=== PATIENT | male | born 1965 | race Caucasian/White ===

== ENCOUNTER 2019-12-28 20:27 | Observation (INO) | payer BC, MEDICAID, SELFPAY ==
--- NOTE | ~2019-12-28 | XR_ITS ---
EXAMINATION: XR abdomen/kub 1V INDICATION: Ureterovesicular junction stone. TECHNIQUE: Supine views of the abdomen were obtained on 2 radiographs. COMPARISON: CT from today FINDINGS: There is a subtle 8 mm calcification projecting in the left pelvis corresponding to the lef t ureterovesicular junction stone identified on CT. Phleboliths are noted in the right pelvis. The yevgeniy wel gas pattern is normal. IMPRESSION: 1. Subtle left pelvic calcification corresponding to the ureterovesicular junction stone identified o n CT. Reviewed, dictated and finalized at location A. IMPRESSION: 1. Subtle left pelvic calcification corresponding to the ureterovesicular junct ion stone identified on CT.
--- NOTE | ~2019-12-28 | CT_ITS ---
EXAMINATION: CT abdomen pelvis wo con DATE: 12/28/2019 21:06 INDICATION: Flank pain TECHNIQUE: Computed tomography (CT) of the abdomen and pelvis was performed without intravenous contr ast. The dose-length product (DLP) was 253.70 mGy-cm. Automated exposure control and iterative recons truction technique were employed. COMPARISON: 09/18/2019, 08/22/2015 FINDINGS: Minimal dependent atelectasis is present in the lung bases. The heart size is normal. The l iver, spleen, pancreas, gallbladder, and adrenal glands are normal. There is an 8 mm stone at the lef t ureterovesicular junction which causes moderate left hydroureteronephrosis. A stable 1.1 cm isodens e right kidney lesion is considered benign. No pathologically enlarged abdominal or pelvic lymph node s are identified. There is no free intraperitoneal gas or evidence of bowel obstruction. There is a f at-containing umbilical hernia. The appendix is normal. Colonic diverticulosis is present without mandie dence of diverticulitis. There is moderate lumbar spondylosis. IMPRESSION: 1. 8 mm stone at the left ureterovesicular junction causing moderate left hydroureteronephrosis. Cons ider KUB for treatment planning purposes. Reviewed, dictated and finalized at location A. IMPRESSION: 1. 8 mm stone at the left ureterovesicular junction causing moderate left hydro ureteronephrosis. Consider KUB for treatment planning purposes.
[2019-12-28 20:29] VITALS: BP 129/87; PULSE 100; RESP 16; TEMP 36.3; O2SAT 100
--- NOTE | 2019-12-28 20:43 | ED.ABDPAIN ---
HPI - Abdominal Pain General Chief Complaint: Abdominal Pain Stated Complaint: kidney stone Time Seen by Provider: 12/28/19 20:36 Source: patient and RN notes reviewed Mode of arrival: other Limitations: no limitations History of Present Illness HPI narrative: Pt is a 54 y/o male who presents to the ED with c/o lower abdominal pain that began a few days ago. Pt notes that he has a 6 mm left kidney stone and was supposed to have surgery on 12/23/19, but he had some insurance issues so he was unable to have the procedure. He notes that kidney stone is about to drop. Pt states that he has been drinking plenty of water. Pt also reports a cough, chest congestion, urinary urgency, urinary retention, and dysuria, but denies a fever, chills, sore throat, and nasal drainage. Pt denies any recent foreign travel and being around anyone with COVID. MD elicited complaint: abdominal pain Pertinent past history: kidney stones Onset (ago): day(s) Pain Consistency: constant Location: other (lower abdomen) Associated symptoms: dysuria and other (urinary retention, urinary urgency, cough, chest congestion) Related Data Home Medications Medication Instructions Recorded Confirmed buspirone 15 mg tablet 15 mg PO DAILY 09/14/19 12/28/19 trazodone 150 mg tablet 150 mg PO HS 09/14/19 12/28/19 venlafaxine 150 mg 150 mg PO DAILY 09/14/19 12/28/19 capsule,extended release 24 hr venlafaxine 75 mg capsule,extended 75 mg PO DAILY 09/14/19 12/28/19 release 24 hr lansoprazole 15 mg PO DAILY 12/28/19 12/28/19 risperidone 0.25 mg PO BID 12/28/19 12/28/19 Allergies Allergy/AdvReac Type Severity Reaction Status Date / Time No Known Allergies Allergy Verified 12/28/19 20:43 Review of Systems Review of Systems: All systems reviewed & are unremarkable except as noted in HPI and below Constitutional: Constitutional: Denies chills and Denies fever(s) ENT: Denies nasal discharge and Denies sore throat Respiratory: Respiratory: Reports chest congestion and Reports cough Gastrointestinal: Gastrointestinal: Reports abdominal pain (lower) Genitourinary: Genitourinary: Reports dysuria, Reports urinary urgency and Reports other (urinary retention) [facility] Past Medical History Medical History (Updated 12/28/19 @ 22:53 by David Lopez MD) Anxiety Arthritis Depression GERD (gastroesophageal reflux disease) Hepatic steatosis Hyperlipidemia Left renal stone Left ureteral stone Right kidney mass Umbilical hernia without obstruction and without gangrene Surgical History Surgical History (Updated 12/28/19 @ 21:15 by Chantal Haas) H/O umbilical hernia repair History of eye surgery to remove metal in eye History of orthopedic surgery to remove pin out of left 1st digit Social History Social History (Updated 12/28/19 @ 21:12 by Chantal Haas) Smoking status: Never smoker Alcohol intake: current Substance use: current Substance use type: marijuana Other substance usage details: occasional Last use: 2 weeks ago 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oncerns: Yes (Pentecostal) Agree to blood products: Yes Exam Const: General: healthy appearing, no acute distress, well developed and alert Orientation/consciousness: patient oriented x3 Limitations: no limitations HENMT: Head: normocephalic and atraumatic Ears: external ears normal General nose exam: Normal external nose present Mouth: Yes oropharynx normal and Yes moist mucous membranes Resp: Effort & Inspection: normal respiratory effort and able to speak in complete sentences Auscultation: clear to auscultation bilaterally Cardio: Rate: regular rate Rhythm: regular rhythm Peripheral pulses: radial pulses present and popliteal pulses present GI: GI Palp: Yes Soft to palpation, No Tenderness to palpation present (GI) and No Guarding due to palpation present (GI) Skin: G
[2019-12-28 21:07] LABS: Basophils Absolute Auto 0.1 K/mm3 (0.0-0.1); Basophils Percent Auto 0.8 % (0.2-1.2); Eosinophils Absolute Auto 0.1 K/mm3 (0-0.3); Eosinophils Percent Auto 0.9 % (0-4.4); Hematocrit 44.7 % (42.0-52.0); Hemoglobin 15.2 g/dL (14.0-18.0); Immature Granulocyte Absolute 0.04 K/mm3 (0.00-0.031); Immature Granulocyte Percent A 0.4 % (0-0.5); Lymphocytes Absolute Auto 3.77 K/mm3 (0.9-3.2); Mean Corpuscular Hemoglobin 30.5 pg (26-34); Mean Corpuscular Volume 89.6 fl (80-100); Mean Platelet Volume 8.3 fl (7.4-10.4); Monocytes Absolute Auto 0.7 K/mm3 (0.1-0.6); Monocytes Percent Auto 6.5 % (2.6-8.5); Neutrophils Absolute Auto 5.6 K/mm3 (1.3-6.7); Neutrophils Percent Auto 54.4 % (45.5-73.1); Platelet Count Result 331 k/mm3 (150-375); Red Blood Count 4.99 M/mm3 (4.6-6.20); Red Cell Distribution Width 12.6 % (11.5-14.5); White Blood Count 10.2 K/mm3 (4.5-10.0)
[2019-12-28 21:13] LABS: Add Urine Microscopic? YES; Appearance Urine Clear (Clear); Bacteria Urine Trace /hpf; Bilirubin Urine Negative (Negative); Blood Urine 2+ (Negative); Color Urine Yellow (Yellow); Glucose Urine UA Negative (Negative); Hyaline Casts Urine 20-29 /lpf; Ketones Urine Negative (Negative); Leukocyte Esterase Ur Trace LEU/UL (Negative); Mucus Urine Few /lpf; Nitrate Urine Negative (Negative); Protein Urine 2+ mg/dL (Negative); RBC Urine >75 /hpf (0-2); Specific Grav Ur 1.028 (1.001-1.035); Squamous Epithelial Cell Urine Many /hpf (Few); WBC Urine 16-20 /hpf
[2019-12-28 21:18] LABS: Blood Urea Nitrogen 23 mg/dL (9-20); Calcium 9.2 mg/dL (8.4-10.2); Carbon Dioxide 27 mmol/L (22-30); Chloride 101 mmol/L (98-107); Estimated Glomerular Filt Rate > 60; Glucose 116 mg/dL (75-110); Potassium 3.9 mmol/L (3.4-5.0); Sodium 137 mmol/L (137-145)
[2019-12-28 21:41] VITALS: BP 114/76; PULSE 95; RESP 16; TEMP 36.7; O2SAT 97
[2019-12-28] MEDS: TAMSULOSIN HCL 0.4 MG CAPSULE PO (22:13)
[2019-12-28] MEDS: KETOROLAC 30 MG/ML VIAL (*BKC) IV PUSH (22:13)
[2019-12-28 22:41] VITALS: BP 120/88; PULSE 90; RESP 16; O2SAT 100
[2019-12-28 22:55] VITALS: BMI 27.5
[2019-12-28 23:05] VITALS: BP 116/66; PULSE 90; RESP 18; TEMP 36.4; O2SAT 95; BMI 27.8
--- NOTE | 2019-12-28 23:16 | ADMGEN ---
This patient, Ketan Pena, was admitted to [facility] Surg Room 312-01. Patient/family oriented to hospital policies and general routines including ID bracelet, bed and alarms, visiting hours, pain management, procedures, bathroom and other care routines, personal items, smoking policy, room service/diet, and visiting hours. Valuables list has been completed. Information on how to activate the Rapid Response Team has been discussed. Patient/Family are encouraged to report perceived risks to care and to ask questions if they do not understand what they are told or what they should do.
[2019-12-29] MEDS: SODIUM CHLORIDE 0.9% IV 1,000 ML 125 ML IV CONT
[2019-12-29 06:00] VITALS: BP 112/61; PULSE 80; RESP 18; TEMP 36.1; O2SAT 97
[2019-12-29 08:00] VITALS: PULSE 80; RESP 18; O2SAT 97
--- NOTE | 2019-12-29 15:01 | HP_ITS ---
DATE OF SERVICE: 12/29/2019 REASON FOR CONSULTATION: Ureteral stone. Physician requesting consultation is Dr. Lopez in the emergency department. HISTORY OF PRESENT ILLNESS: The patient is a very pleasant gentleman, he was found to have an 8 mm ureteral stone 3 weeks ago. He was scheduled for surgery last week; however, due to insurance difficulties was cancelled. The patient presented to the emergency department last night with worsening pain. The patient had CT scan that showed migration of the stone to the distal ureter. The patient was admitted to the hospital, given IV fluids and tamsulosin. The patient subsequently passed the stone early this morning. The patient currently is feeling well. He denies nausea, vomiting, fevers, chills, chest pain, shortness of breath. PAST MEDICAL HISTORY: Anxiety, arthritis, depression, fatty liver, GERD, hyperlipidemia, nephrolithiasis. PAST SURGICAL HISTORY: Umbilical hernia repair, eye surgery, and orthopedic surgery. SOCIAL HISTORY: The patient does smoke marijuana and drink alcohol. He denies tobacco use. REVIEW OF SYSTEMS: Negative as mentioned in the HPI. ALLERGIES: NO KNOWN DRUG ALLERGIES. CURRENT MEDICATIONS: 1. Buspirone. 2. Trazodone. 3. Venlafaxine. 4. . 5. Risperidone. PHYSICAL EXAMINATION: VITAL SIGNS: Within normal limits. GENERAL: The patient is awake, alert, oriented, in no acute distress. RESPIRATORY: Unlabored. ABDOMEN: Soft, nontender, nondistended. BACK: Shows no CVA tenderness. EXTREMITIES: No edema. LABORATORY DATA: Showed white blood cell count of 10, hematocrit of 44, creatinine of 1.1. Urinalysis was positive for red blood cells. No significant findings. CT scan, I reviewed the patient's imaging report. The patient has an 8 mm stone at the left ureterovesical junction with moderate hydroureteronephrosis. ASSESSMENT: The patient is a very pleasant 54-year-old gentleman who was admitted with pain due to a distal ureteral stone, which he subsequently passed last night. PLAN: 1. The patient will be discharged home today as he passed the stone. The stone to be sent for analysis. 2. The patient should continue fluid hydration to prevent stone disease. 3. The patient is to follow up in the office in approximately 1 month. He should have a renal ultrasound and a KUB for followup imaging prior to the appointment. D I MT: Marie
== END 2019-12-29 11:20 | disposition home or self-care (01) ==
LOC: ANHED 21:58 → ANH3MEDSUR 22:42
PROVIDERS: Admitting Provider Urology; Emergency Provider Emergency Medicine; PCP Emergency Medicine; Visit Provider Urology
DX: N20.1 Calculus of ureter (principal); R05 Cough; E78.5 Hyperlipidemia, unspecified; K21.9 Gastro-esophageal reflux disease without esophagitis; F32.9 Major depressive disorder, single episode, unspecified; F41.9 Anxiety disorder, unspecified; M19.90 Unspecified osteoarthritis, unspecified site; K76.0 Fatty (change of) liver, not elsewhere classified; Z87.442 Personal history of urinary calculi
CPT/HCPCS: 36415; 74018; 74176; 80048; 81001; 82365; 85025; 87086; 88300; 96374; 99285; A9270; G0378; G0379; J1885; J7030

== ENCOUNTER 2020-10-15 19:32 | Emergency (ER) | payer OTHER, SELFPAY ==
--- NOTE | ~2020-10-15 | CT_ITS ---
EXAMINATION: CT abdomen pelvis wo con DATE: 10/15/2020 20:06 INDICATION: Right flank pain TECHNIQUE: Computed tomography (CT) of the abdomen and pelvis was performed without intravenous contr ast. The dose-length product (DLP) was 742.48 mGy-cm. Automated exposure control and iterative recons truction technique were employed. COMPARISON: 12/28/2019 FINDINGS: Minimal dependent atelectasis is present in the lung bases. The heart size is normal. The l iver, spleen, pancreas, gallbladder, and adrenal glands are normal. There are punctate nonobstructing stones of the kidneys. No stones are present in the ureters or bladder. There is no hydronephrosis o r hydroureter. Colonic diverticulosis is noted. There is mild wall thickening at the hepatic flexure of the colon with edematous stranding of the adjacent pericolic fat. There is no free intraperitoneal gas or evidence of bowel obstruction. No pathologically enlarged abdominal or pelvic lymph nodes are identified. The appendix is normal. There is a small fat-containing umbilical hernia. There is sever e spondylosis at L5-S1. IMPRESSION: 1. Acute, uncomplicated diverticulitis at the hepatic flexure of colon. Reviewed, dictated and finalized at location A. [facility] [employer]
[2020-10-15 19:40] VITALS: BP 152/96; PULSE 82; RESP 18; TEMP 36.6; O2SAT 98
[2020-10-15] MEDS: SODIUM CHLORIDE 0.9% IV 1,000 ML 999 ML IV CONT (20:10)
[2020-10-15] MEDS: KETOROLAC 30 MG/ML VIAL (*BKC) IV PUSH (20:11)
[2020-10-15 20:21] LABS: Basophils Absolute Auto 0.08 K/mm3 (0.00-0.10); Basophils Percent Auto 1.2 % (0.0-1.0); Eosinophils Percent Auto 2.9 % (1.0-6.0); Hematocrit 38.2 % (40.0-54.0); Hemoglobin 13.2 g/dL (14.0-18.0); Immature Granulocyte Absolute 0.03 K/mm3 (0.00-0.00); Immature Granulocyte Percent A 0.4 % (0.0-0.0); Lymphocytes Absolute Auto 2.94 K/mm3 (1.10-4.50); Lymphocytes Percent Auto 43.2 % (18.0-42.0); Mean Corpuscular HGB Conc 34.6 g/dL (32.0-36.0); Mean Corpuscular Hemoglobin 31.4 pg (27.0-31.0); Mean Platelet Volume 8.1 fl (8.7-11.0); Monocytes Absolute Auto 0.51 K/mm3 (0.10-0.90); Monocytes Percent Auto 7.5 % (2.0-11.0); Neutrophils Absolute Auto 3.1 K/mm3 (1.7-7.2); Neutrophils Percent Auto 44.8 % (50.0-70.0); Platelet Count Result 275 K/mm3 (150-420); White Blood Count 6.8 K/mm3 (4.8-10.8)
[2020-10-15 20:22] LABS: Add Urine Microscopic? NO; Appearance Urine Clear (Clear); Bilirubin Urine Negative (Negative); Blood Urine Negative (Negative); Color Urine Yellow (Yellow); Glucose Urine UA Negative (Negative); Ketones Urine Negative (Negative); Leukocyte Esterase Ur Negative LEU/UL (Negative); Nitrate Urine Negative (Negative); Protein Urine Negative (Negative); Specific Grav Ur 1.015 (1.010-1.020); Urobilinogen Urine 0.2 mg/dL (0.2-1.0)
[2020-10-15 20:36] LABS: INR 0.9; Partial Thromboplastin Time 23.3 SEC (23.90-30.70); Prothrombin Time 10.3 Seconds (9.50-12.10)
[2020-10-15 20:38] LABS: Alanine Aminotransferase 42 U/L (16-63); Albumin Level 3.6 g/dL (3.4-5.0); Alkaline Phosphatase 61 U/L (46-116); Anion Gap 11 mmol/L (8-16); Aspartate Amino Transferase 22 U/L (15-37); Bilirubin,Total 0.2 mg/dL (0.00-1.00); Blood Urea Nitrogen 10 mg/dL (7-18); Calcium 8.6 mg/dL (8.5-10.1); Carbon Dioxide 25 mmol/L (21-32); Chloride 102 mmol/L (98-108); Estimated CRCL calculation 55 ml/min; Estimated Glomerular Filt Rate 57; Glucose 109 mg/dL (70-99); Lipase 222 U/L (73-393); Osmolality Calculated 286 mOsm/kg (285-295); Potassium 3.6 mmol/L (3.5-5.1); Sodium 138 mmol/L (136-145)
--- NOTE | 2020-10-15 20:46 | ED.GENADULT ---
HPI - General Adult General Chief complaint: Back Pain/Injury Stated complaint: 55 YO male w/ 4 day h/o right mid back pain that started after he worked on his car (Tuneup and bleed brakes). Has a h/o renal calculi and denies trauma or injury. Related Data Home Medications Medication Instructions Recorded Confirmed buspirone 15 mg tablet 30 mg PO BID 09/14/19 10/15/20 trazodone 150 mg tablet 150 mg PO HS 09/14/19 10/15/20 venlafaxine 150 mg 150 mg PO DAILY 09/14/19 10/15/20 capsule,extended release 24 hr venlafaxine 75 mg capsule,extended 75 mg PO DAILY 09/14/19 10/15/20 release 24 hr risperidone 0.5 mg PO BID 12/28/19 10/15/20 Allergies Allergy/AdvReac Type Severity Reaction Status Date / Time No Known Allergies Allergy Verified 12/28/19 20:43 Review of Systems Review of Systems: All systems reviewed & are unremarkable except as noted in HPI and below Constitutional: Constitutional: Reports no additional constitutional complaints Cardiovascular: Cardiovascular: Reports no additional cardiovascular complaints Respiratory: Respiratory: Reports no additional respiratory complaints Gastrointestinal: Gastrointestinal: Reports no additional gastrointestinal complaints Genitourinary: Genitourinary: Reports no additional male genitourinary complaints Musculoskeletal: Musculoskeletal: Reports back pain Integumentary/Breasts: Skin/Breast: Reports system reviewed and no additional complaints, except as docu Neurologic: Reports system reviewed and no additional complaints, except as documented Psychiatric: Psychiatric: Reports no additional psychiatric complaints Endocrine: Endocrine: Reports no additional endocrine complaints [facility] Past Medical History Medical History (Updated 10/15/20 @ 20:52 by Junaid Moseley MD) Anxiety Arthritis Depression Diverticulitis large intestine w/o perforation or abscess w/o bleeding Diverticulosis GERD (gastroesophageal reflux disease) Hepatic steatosis Hyperlipidemia Left renal stone Left ureteral stone Right kidney mass Umbilical hernia without obstruction and without gangrene Surgical History Surgical History H/O umbilical hernia repair History of eye surgery to remove metal in eye History of orthopedic surgery to remove pin out of left 1st digit Family History Family History Mother Patient's mother is Father Patient's father is Sibling Patient's sister is in good health Patient's brother is in good health Family history of coronary artery disease Breast cancer Stomach cancer Social History Social History Smoking status: Never smoker Alcohol intake: current Substance use: current Substance use type: marijuana Other substance usage details: occasional Last use: 2 weeks ago 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oncerns: Yes (Zoroastrian) Agree to blood products: Yes Exam Const: General: healthy appearing, no acute distress and alert Orientation/consciousness: patient oriented x3 HENMT: Head: normal to inspection Eyes: Conjunctivae: conjunctivae normal Pupils: Equal, round and reactive pupils present Neck: Neck: normal visual inspection and no lymphadenopathy Chest: Chest palpation & inspection: normal inspection of the chest Resp: Effort & Inspection: normal respiratory effort Auscultation: clear to auscultation bilaterally Cardio: Rate: regular rate Rhythm: regular rhythm GI: Inspection: non-distended GI Palp: Yes Soft to palpation, No Tenderness to palpation present (GI), No Guarding due to palpation present (GI) and No Rigid due to palpation : Testes: Testes normal Back/Spine/Pelvis: Back: CVA tenderness (Right CVA po
[2020-10-15] MEDS: metroNIDAZOLE 250 MG TABLET 500 MG PO (21:07)
[2020-10-15] MEDS: levoFLOXacin TAB 500 MG, levoFLOXacin TAB 250 MG 750 MG PO (21:09)
[2020-10-15 21:11] VITALS: BP 138/82; PULSE 84; RESP 18; O2SAT 98
== END 2020-10-15 21:15 | disposition home or self-care (01) ==
PROVIDERS: Emergency Provider Family Medicine; PCP Emergency Medicine
DX: K57.32 Diverticulitis of large intestine without perforation or abscess without bleeding (principal)
CPT/HCPCS: 36415; 74176; 80053; 81003; 83690; 85025; 85610; 85730; 96361; 96374; 99283; 99284; A9270; J1885; J7030

== ENCOUNTER 2021-01-09 09:09 | Emergency (ER) | payer OTHER, SELFPAY ==
--- NOTE | ~2021-01-09 | CT_ITS ---
EXAMINATION: CT abdomen pelvis wo con EXAM DATE: 01/09/2021 10:02 INDICATION: Abdominal pain LT flank pain x3days, worse today after feeling pop in that area. Hernia s urgery one year ago. TECHNIQUE: Spiral CT of the abdomen and pelvis was performed without contrast. Axial, coronal and s agittal images were reviewed. The dose-length product (DLP) for this examination was 934.64 mGy-cm. The exposure was tailored according to patient size (auto mA exposure control), and iterative recons truction (ASIR) was used as additional dose reduction technique. Comparison is made to prior examinat ion from 10/15/2020. FINDINGS: There is hepatic steatosis without suspicious focal lesion identified. Spleen, adrenal glan ds, pancreas are unremarkable. Gallbladder is unremarkable. No biliary obstruction. There is punct ate right inferior calyceal stone. No ureteral stones or hydronephrosis. The prostate is unremarkabl e. The bladder is unremarkable. There is no retroperitoneal or pelvic lymphadenopathy. Small umbi lical fat-containing hernia. The appendix is normal. There is mild to moderate scattered colonic diverticulosis. There is no calin cent inflammatory change to suggest diverticulitis, previously seen episode has resolved. The stoma ch and small bowel are unremarkable. There is expected amount of colonic stool. No free intraperit bruce gas. Lung bases are clear. There is narrow cardiac silhouette, evidence of hyperinflation. T here are no acute fractures identified. IMPRESSION: 1. No acute intra-abdominal findings. 2. Scattered colonic diverticulosis. 3. Punctate right nephrolithiasis. 4. Small umbilical hernia. 5. Hyperinflation. Reviewed, dictated and finalized at location A.
[2021-01-09 09:15] VITALS: BP 134/83; PULSE 79; RESP 20; TEMP 36.6; O2SAT 97
[2021-01-09 09:36] LABS: Basophils Absolute Auto 0.04 K/mm3 (0.00-0.10); Basophils Percent Auto 0.6 % (0.0-1.0); Eosinophils Absolute Auto 0.18 K/mm3 (0.02-0.50); Eosinophils Percent Auto 2.7 % (1.0-6.0); Hematocrit 42.2 % (40.0-54.0); Hemoglobin 14.5 g/dL (14.0-18.0); Immature Granulocyte Absolute 0.02 K/mm3 (0.00-0.00); Immature Granulocyte Percent A 0.3 % (0.0-0.0); Lymphocytes Absolute Auto 2.33 K/mm3 (1.10-4.50); Lymphocytes Percent Auto 34.9 % (18.0-42.0); Mean Corpuscular HGB Conc 34.4 g/dL (32.0-36.0); Mean Corpuscular Hemoglobin 31.5 pg (27.0-31.0); Mean Corpuscular Volume 91.7 fL (78.0-102.0); Mean Platelet Volume 7.9 fl (8.7-11.0); Monocytes Absolute Auto 0.38 K/mm3 (0.10-0.90); Monocytes Percent Auto 5.7 % (2.0-11.0); Neutrophils Absolute Auto 3.7 K/mm3 (1.7-7.2); Neutrophils Percent Auto 55.8 % (50.0-70.0); Platelet Count Result 230 K/mm3 (150-420); Red Cell Distribution Width 12.7 % (11.6-14.4); White Blood Count 6.7 K/mm3 (4.8-10.8)
[2021-01-09] MEDS: KETOROLAC 30 MG/ML VIAL (*BKC) IV PUSH (09:44)
[2021-01-09 09:47] LABS: Add Urine Microscopic? NO; Appearance Urine Clear (Clear); Bilirubin Urine Negative (Negative); Blood Urine Negative (Negative); Color Urine Yellow (Yellow); Glucose Urine UA Negative (Negative); Ketones Urine Negative (Negative); Leukocyte Esterase Ur Negative LEU/UL (Negative); Nitrate Urine Negative (Negative); Protein Urine Negative (Negative); Urobilinogen Urine 0.2 mg/dL (0.2-1.0); pH Urine 5.5 (5.0-8.0)
--- NOTE | 2021-01-09 09:50 | ED.ABDPAIN ---
HPI - Abdominal Pain General Chief Complaint: Abdominal Pain Stated Complaint: diverticulis Source: patient Limitations: no limitations History of Present Illness HPI narrative: pain has been present for 3 days. Went to chiropracter because he thought it was a pulled muscle. Today when he was getting up off a toliet he felt a pop and pain got much worse. He has no N/V, no d/c, no urinary sxs. Basically he points to area in LUQ and left flank and states this is where the pain is. he feels fine otherwise MD elicited complaint: abdominal pain Pain Consistency: constant Location: LUQ and L flank Severity: moderate Migration to: no migration Exacerbating factors: movement (touch) Relieving factors: nothing Associated symptoms: denies other symptoms Related Data Home Medications Medication Instructions Recorded Confirmed buspirone 15 mg tablet 30 mg PO BID 09/14/19 10/15/20 venlafaxine 150 mg 150 mg PO DAILY 09/14/19 10/15/20 capsule,extended release 24 hr venlafaxine 75 mg capsule,extended 75 mg PO DAILY 09/14/19 10/15/20 release 24 hr risperidone 0.5 mg PO BID 12/28/19 10/15/20 lansoprazole [Prevacid] 30 mg PO DAILY 01/09/21 01/09/21 Allergies Allergy/AdvReac Type Severity Reaction Status Date / Time No Known Allergies Allergy Verified 12/28/19 20:43 Review of Systems Constitutional: Constitutional: Reports no additional constitutional complaints Eyes: Eyes: Reports no additional eye complaints ENT: Reports as per HPI Cardiovascular: Cardiovascular: Reports no additional cardiovascular complaints Respiratory: Respiratory: Reports no additional respiratory complaints Gastrointestinal: Gastrointestinal: Reports abdominal pain, Denies bloating, Denies constipation, Denies heartburn, Denies diarrhea, Denies nausea and Denies vomiting Genitourinary: Genitourinary: Reports no additional male genitourinary complaints Musculoskeletal: Musculoskeletal: Reports no additional musculoskeletal complaints Integumentary/Breasts: Skin/Breast: Reports system reviewed and no additional complaints, except as docu Neurologic: Reports system reviewed and no additional complaints, except as documented Psychiatric: Psychiatric: Reports no additional psychiatric complaints Endocrine: Endocrine: Reports no additional endocrine complaints Hematologic/Lymphatic: Hematologic/Lymphatic: Reports no additional hematologic/lymphatic complaints Allergic/Immunologic: Allergic/Immunologic: Reports no additional allergic/immunologic complaints PMFSH Past Medical History Medical History Anxiety Arthritis Depression Diverticulitis large intestine w/o perforation or abscess w/o bleeding Diverticulosis GERD (gastroesophageal reflux disease) Hepatic steatosis Hyperlipidemia Left renal stone Left ureteral stone Right kidney mass Umbilical hernia without obstruction and without gangrene Surgical History Surgical History H/O umbilical hernia repair History of eye surgery to remove metal in eye History of orthopedic surgery to remove pin out of left 1st digit Family History Family History Mother Patient's mother is Father Patient's father is Sibling Patient's sister is in good health Patient's brother is in good health Family history of coronary artery disease Breast cancer Stomach cancer Social History Social History Smoking status: Never smoker Alcohol intake: current Substance use: current Substance use type: marijuana Other substance usage details: occasional Last use: 2 weeks ago 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
[2021-01-09 09:52] LABS: Alanine Aminotransferase 47 U/L (16-63); Albumin Level 3.7 g/dL (3.4-5.0); Alkaline Phosphatase 80 U/L (46-116); Anion Gap 9 mmol/L (8-16); Aspartate Amino Transferase 29 U/L (15-37); Bilirubin,Total 0.3 mg/dL (0.00-1.00); Blood Urea Nitrogen 7 mg/dL (7-18); Calcium 8.7 mg/dL (8.5-10.1); Carbon Dioxide 30 mmol/L (21-32); Chloride 102 mmol/L (98-108); Estimated Glomerular Filt Rate > 60; Glucose 113 mg/dL (70-99); Lipase 129 U/L (73-393); Osmolality Calculated 291 mOsm/kg (285-295); Potassium 4.2 mmol/L (3.5-5.1); Sodium 141 mmol/L (136-145); Total Protein 7.3 g/dL (6.4-8.2)
[2021-01-09 09:58] LABS: Lactic Acid Reflex 1.6 mmol/L (0.4-2.0)
[2021-01-09 10:39] VITALS: RESP 16
== END 2021-01-09 10:40 | disposition home or self-care (01) ==
PROVIDERS: Emergency Provider Emergency Medicine; PCP Emergency Medicine
DX: S39.011A Strain of muscle, fascia and tendon of abdomen, initial encounter (principal)
CPT/HCPCS: 36415; 74176; 80053; 81003; 83605; 83690; 85025; 96374; 99283; 99284; J1885

== ENCOUNTER 2021-03-10 02:35 | Emergency (ER) | payer OTHER, SELFPAY ==
--- NOTE | ~2021-03-10 | XR_ITS ---
EXAMINATION: XR chest 2V DATE: 03/10/2021 03:20 INDICATION: Chest pain. Palpitations. TECHNIQUE: Frontal and lateral views of the chest were obtained on 3 radiographs. COMPARISON: Chest 2 views 07/25/2016, chest CT 03/10/2021 FINDINGS: The chest demonstrates clear lungs without pneumonia, pleural effusion, or pneumothorax. Th e heart size is normal. IMPRESSION: 1. No acute cardiopulmonary disease. Reviewed, dictated and finalized at location A.
--- NOTE | ~2021-03-10 | CT_ITS ---
EXAMINATION: CTA chest PE protocol DATE: 03/10/2021 04:03 INDICATION: Chest pain. TECHNIQUE: Computed tomography angiography (CTA) of the chest was performed with 100 mL Omnipaque-350 intravenous contrast timed to evaluate the pulmonary arteries. Coronal maximum intensity projection 3D-reconstructions were created by the technologist. Automated exposure control and iterative reconst ruction technique were employed. The dose-length product was 508.64 mGy-cm. COMPARISON: CT abdomen and pelvis 01/09/2021 FINDINGS: There is mild dependent atelectasis. No pleural effusion. The heart size is normal. No samira cardial effusion. There is no pulmonary embolus. There is diffuse hepatic steatosis. There is a small sliding hiatal hernia. There is moderate thoracic spondylosis. IMPRESSION: 1. No pulmonary embolus. 2. Small sliding hiatal hernia. 3. Diffuse hepatic steatosis. Reviewed, dictated and finalized at location A.
[2021-03-10 02:35] VITALS: BP 136/89; PULSE 74; RESP 18; TEMP 36.4; O2SAT 100
--- NOTE | 2021-03-10 02:45 | ED.ARRPALP ---
HPI - Arrhythmia/Palpitations General Chief Complaint: Arrhythmia/Palpitations Stated Complaint: heart palp Time Seen by Provider: 03/10/21 02:45 Source: patient Mode of arrival: ambulatory Limitations: no limitations History of Present Illness HPI narrative: 56-year-old man with a history of anxiety and GERD comes to the ED this morning stating that he woke from sleep with a rapid heart rate, pressure in his chest and feeling anxious. States he also had a brief sharp pain in his right anterior chest, sweating and shortness of breath. He states that he has had no ankle swelling, calf pain cough or cold symptoms fever or dizziness. He denies prior similar symptoms and has no history of cardiac disease. His symptoms have since abated. He states he has been well except for a recent bout of stomach flu (vomiting and diarrhea) that resolved 2 days ago. MD complaint: rapid heart beat Onset (ago): hour(s) (1) Duration: constant and now resolved Severity: moderate Context: awoke with symptoms Associated symptoms: chest pain Related Data Home Medications Medication Instructions Recorded Confirmed buspirone 15 mg tablet 30 mg PO BID 09/14/19 03/10/21 venlafaxine 150 mg 150 mg PO HS 09/14/19 03/10/21 capsule,extended release 24 hr aripiprazole 10 mg PO DAILY 03/10/21 03/10/21 lamotrigine 50 mg PO DAILY 03/10/21 03/10/21 trazodone 150 mg PO HS 03/10/21 03/10/21 Allergies Allergy/AdvReac Type Severity Reaction Status Date / Time No Known Allergies Allergy Verified 12/28/19 20:43 Review of Systems Constitutional: Constitutional: Denies chills and Denies fever(s) Eyes: Eyes: Denies change in vision and Denies photophobia ENT: Reports nasal congestion ( allergies ) and Denies sore throat Cardiovascular: Cardiovascular: Reports chest pain, Reports rapid heart rate and Denies radiating jaw, neck or arm pain Respiratory: Respiratory: Denies cough, Reports dyspnea and Denies wheezing Gastrointestinal: Gastrointestinal: Denies abdominal pain, Denies diarrhea, Denies nausea and Denies vomiting Genitourinary: Genitourinary: Denies dysuria and Denies urinary frequency Musculoskeletal: Musculoskeletal: Denies arthralgias and Denies joint swelling Integumentary/Breasts: Skin/Breast: Denies pruritus, Denies erythema and Denies rash Neurologic: Denies vertigo, Denies dizziness and Denies syncope Hematologic/Lymphatic: Hematologic/Lymphatic: Denies easy bleeding and Denies easy bruising Allergic/Immunologic: Allergic/Immunologic: Denies lip swelling and Denies throat swelling PMFSH Past Medical History Medical History Anxiety Arthritis Depression Diverticulitis large intestine w/o perforation or abscess w/o bleeding Diverticulosis GERD (gastroesophageal reflux disease) Hepatic steatosis Hyperlipidemia Left renal stone Left ureteral stone Right kidney mass Umbilical hernia without obstruction and without gangrene Surgical History Surgical History H/O umbilical hernia repair History of eye surgery to remove metal in eye History of orthopedic surgery to remove pin out of left 1st digit Family History Family History Mother Patient's mother is Father Patient's father is Sibling Patient's sister is in good health Patient's brother is in good health Family history of coronary artery disease Breast cancer Stomach cancer Social History Social History Smoking status: Never smoker Alcohol intake: current Substance use: current Substance use type: marijuana Other substance usage details: occasional Last use: 2 weeks ago 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
--- NOTE | 2021-03-10 02:49 | ECG_ITS ---
Measurements Intervals [place] Rate: 76 P: 16 WA: 159 QRS: 10 QRSD: 105 T: 46 QT: 373 QTc: 421 Interpretive Statements SINUS RHYTHM BASELINE ARTIFACT- AVF NORMAL ECG Electronically Signed On 03-10-2021 7:44:23 CDT by Hang Lam D.O.
[2021-03-10] MEDS: ASPIRIN 81 MG CHEWABLE TABLET 324 MG PO (02:59)
[2021-03-10 03:09] LABS: Basophils Absolute Auto 0.07 K/mm3 (0.00-0.10); Basophils Percent Auto 1.1 % (0.0-1.0); Eosinophils Absolute Auto 0.44 K/mm3 (0.02-0.50); Eosinophils Percent Auto 6.7 % (1.0-6.0); Hematocrit 38.7 % (40.0-54.0); Hemoglobin 13.4 g/dL (14.0-18.0); Immature Granulocyte Absolute 0.01 K/mm3 (0.00-0.00); Immature Granulocyte Percent A 0.2 % (0.0-0.0); Lymphocytes Absolute Auto 1.48 K/mm3 (1.10-4.50); Lymphocytes Percent Auto 22.4 % (18.0-42.0); Mean Corpuscular HGB Conc 34.6 g/dL (32.0-36.0); Mean Corpuscular Hemoglobin 31.5 pg (27.0-31.0); Mean Corpuscular Volume 91.1 fL (78.0-102.0); Mean Platelet Volume 7.9 fl (8.7-11.0); Monocytes Absolute Auto 0.53 K/mm3 (0.10-0.90); Neutrophils Absolute Auto 4.1 K/mm3 (1.7-7.2); Neutrophils Percent Auto 61.6 % (50.0-70.0); Platelet Count Result 201 K/mm3 (150-420); Red Blood Count 4.25 M/mm3 (4.70-6.10); Red Cell Distribution Width 12.4 % (11.6-14.4); White Blood Count 6.6 K/mm3 (4.8-10.8)
[2021-03-10 03:12] LABS: Add Urine Microscopic? NO; Appearance Urine Clear (Clear); Bilirubin Urine Negative (Negative); Blood Urine Negative (Negative); Color Urine Yellow (Yellow); Glucose Urine UA Negative (Negative); Ketones Urine Negative (Negative); Leukocyte Esterase Ur Negative LEU/UL (Negative); Nitrate Urine Negative (Negative); Protein Urine Negative (Negative); Specific Grav Ur 1.025 (1.010-1.020); Urobilinogen Urine 0.2 mg/dL (0.2-1.0)
[2021-03-10 03:17] LABS: Partial Thromboplastin Time 23.4 SEC (23.90-30.70); Prothrombin Time 10.3 Seconds (9.50-12.10)
[2021-03-10 03:22] LABS: D Dimer 0.65 mg/L (0.19-0.50)
[2021-03-10 03:30] LABS: Alanine Aminotransferase 75 U/L (16-63); Albumin Level 3.3 g/dL (3.4-5.0); Alkaline Phosphatase 70 U/L (46-116); Anion Gap 14 mmol/L (8-16); Aspartate Amino Transferase 48 U/L (15-37); Bilirubin,Total 0.3 mg/dL (0.00-1.00); Blood Urea Nitrogen 9 mg/dL (7-18); Calcium 8.2 mg/dL (8.5-10.1); Carbon Dioxide 24 mmol/L (21-32); Chloride 102 mmol/L (98-108); Estimated CRCL calculation 71 ml/min; Estimated Glomerular Filt Rate > 60; Glucose 133 mg/dL (70-99); NT Pro B Type Natriuretic Pept < 11 pg/mL (0-125); Osmolality Calculated 290 mOsm/kg (285-295); Potassium 3.1 mmol/L (3.5-5.1); Sodium 140 mmol/L (136-145); Total Protein 6.8 g/dL (6.4-8.2)
[2021-03-10 03:32] LABS: Magnesium 1.7 mg/dL (1.8-2.4); Troponin I < 4.0 ng/L (0.00-60.4)
--- NOTE | 2021-03-10 05:36 | PC.NURSE ---
Dr Díaz in to discuss POC and test results c pt. ERP wanting pt to stay for further testing, Per Dr. Díaz, pt refuses to stay for further testing and wants to go home. ERP discussed risks/benefits c pt. and pt signed AMA.
[2021-03-10 05:38] VITALS: BP 142/85; PULSE 80; RESP 20; TEMP 36.6; O2SAT 99
== END 2021-03-10 05:44 | disposition left against medical advice (07) ==
PROVIDERS: Emergency Provider Emergency Medicine; PCP Emergency Medicine
DX: R00.2 Palpitations (principal); R07.89 Other chest pain
CPT/HCPCS: 36415; 71046; 71275; 80053; 81003; 83735; 83880; 84443; 84484; 85025; 85380; 85610; 85730; 93005; 99283; 99284; A9270; Q9967

== ENCOUNTER 2021-03-22 12:59 | Emergency (ER) | payer OTHER, SELFPAY ==
[2021-03-22 13:20] VITALS: BP 131/94; PULSE 93; RESP 20; TEMP 36.9; O2SAT 98
--- NOTE | 2021-03-22 13:50 | ED.SKABFB ---
HPI - Skin/Abscess/Foreign Bdy General Chief complaint: Skin/Abscess/Foreign Body Stated complaint: Tick bite Source: patient Mode of arrival: ambulatory Limitations: no limitations History of Present Illness HPI narrative: this is a 56-year-old gentleman presents after he noticed a tick on his right lower abdomen that he removed while he was taking a shower and was concerned that the there was remnants of the tick in the lesion area. Currently there is no fever chills there is a little small area of erythema with a central punctate lesion with no remnants of tick in place. No palpitations no chest pain no shortness of breath. complaint: insect bite/sting Onset (ago): day(s) Tetanus up to date: no Location: generalized ( right lower abdomen) Severity: mild Related Data Home Medications Medication Instructions Recorded Confirmed buspirone 15 mg tablet 30 mg PO BID 09/14/19 03/22/21 venlafaxine 150 mg 75 mg PO DAILY 09/14/19 03/22/21 capsule,extended release 24 hr aripiprazole 10 mg PO DAILY 03/10/21 03/22/21 lamotrigine 50 mg PO DAILY 03/10/21 03/22/21 trazodone 150 mg PO HS 03/10/21 03/22/21 Allergies Allergy/AdvReac Type Severity Reaction Status Date / Time No Known Allergies Allergy Verified 12/28/19 20:43 Review of Systems Review of Systems: All systems reviewed & are unremarkable except as noted in HPI and below PMFSH Past Medical History Medical History Anxiety Arthritis Depression Diverticulitis large intestine w/o perforation or abscess w/o bleeding Diverticulosis GERD (gastroesophageal reflux disease) Hepatic steatosis Hyperlipidemia Left renal stone Left ureteral stone Right kidney mass Umbilical hernia without obstruction and without gangrene Surgical History Surgical History H/O umbilical hernia repair History of eye surgery to remove metal in eye History of orthopedic surgery to remove pin out of left 1st digit Family History Family History Mother Patient's mother is Father Patient's father is Sibling Patient's sister is in good health Patient's brother is in good health Family history of coronary artery disease Breast cancer Stomach cancer Social History Social History Smoking status: Never smoker Alcohol intake: current Substance use: current Substance use type: marijuana Other substance usage details: occasional Last use: 2 weeks ago 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oncerns: Yes (Denominational) Agree to blood products: Yes Exam Const: General: no acute distress Orientation/consciousness: patient oriented x3 HENMT: Head: normal to inspection Eyes: Conjunctivae: conjunctivae normal Pupils: Equal, round and reactive pupils present Neck: Neck: normal visual inspection, no lymphadenopathy and no meningeal signs Chest: Chest palpation & inspection: normal inspection of the chest Resp: Effort & Inspection: normal respiratory effort Auscultation: clear to auscultation bilaterally Cardio: Rate: regular rate Rhythm: regular rhythm GI: Auscultation: normal bowel sounds Back/Spine/Pelvis: Back: no CVA tenderness Skin: Other: Small lesion approximately 1cm in diameter with a central punctate lesion with no remnants of insect. Neuro: General: patient oriented x3 and moves all extremities Extrem: General: normal to inspection and no pedal edema Psych: Appearance: grossly normal Mental Status: mental status grossly normal Affect: normal affect Course Course Emergency Course: Reassessment of patient there is no tick remnants visualized in the lesion located in his right lower abdomen will upda
[2021-03-22] MEDS: TETANUS,DIPHTHERIA,AC PERTUSSIS ADULT 0.5 ML (ADACEL) IM (14:09)
[2021-03-22 14:11] VITALS: BP 120/78; PULSE 84; RESP 20; TEMP 36.9; O2SAT 97
== END 2021-03-22 14:16 | disposition home or self-care (01) ==
PROVIDERS: Emergency Provider Emergency Medicine; PCP Emergency Medicine
DX: S30.861A Insect bite (nonvenomous) of abdominal wall, initial encounter (principal); W57.XXXA Bitten or stung by nonvenomous insect and other nonvenomous arthropods, initial encounter
CPT/HCPCS: 90471; 90715; 99282

== ENCOUNTER 2021-03-23 03:59 | Emergency (ER) | payer OTHER, SELFPAY ==
--- NOTE | ~2021-03-23 | XR_ITS ---
EXAMINATION: XR chest 2V EXAM DATE: 03/23/2021 04:26 INDICATION: Shortness of breath. TECHNIQUE: Frontal and lateral projections of the chest obtained and reviewed. Comparison is made to prior examination from 03/10/2021. FINDINGS: The lungs are clear. There are no pleural effusions. The cardiomediastinal silhouette is within normal limits. There is no pneumothorax suspected. The bones and soft tissues are unremarkab le. There is no significant interval change. IMPRESSION: No acute cardiopulmonary findings. Reviewed, dictated and finalized at location A.
[2021-03-23 04:00] VITALS: BP 119/86; PULSE 79; RESP 20; TEMP 36.9; O2SAT 97
--- NOTE | 2021-03-23 04:14 | ECG_ITS ---
Measurements Intervals [place] Rate: 78 P: 29 SC: 172 QRS: 14 QRSD: 101 T: 41 QT: 367 QTc: 420 Interpretive Statements SINUS RHYTHM BASELINE ARTIFACT- II, III, AVF NORMAL ECG Electronically Signed On 03-23-2021 8:31:44 CDT by Hang Lam D.O.
[2021-03-23] MEDS: ALPRAZolam (*CRX) 0.5 MG TABLET PO (04:33)
[2021-03-23 04:35] LABS: Basophils Percent Auto 1.4 % (0.0-1.0); Eosinophils Absolute Auto 0.31 K/mm3 (0.02-0.50); Eosinophils Percent Auto 4.3 % (1.0-6.0); Hematocrit 41.1 % (40.0-54.0); Hemoglobin 13.9 g/dL (14.0-18.0); Immature Granulocyte Absolute 0.02 K/mm3 (0.00-0.00); Immature Granulocyte Percent A 0.3 % (0.0-0.0); Lymphocytes Absolute Auto 2.76 K/mm3 (1.10-4.50); Lymphocytes Percent Auto 38.4 % (18.0-42.0); Mean Corpuscular HGB Conc 33.8 g/dL (32.0-36.0); Mean Corpuscular Hemoglobin 31.4 pg (27.0-31.0); Mean Platelet Volume 8.1 fl (8.7-11.0); Monocytes Absolute Auto 0.41 K/mm3 (0.10-0.90); Monocytes Percent Auto 5.7 % (2.0-11.0); Neutrophils Absolute Auto 3.6 K/mm3 (1.7-7.2); Neutrophils Percent Auto 49.9 % (50.0-70.0); Platelet Count Result 241 K/mm3 (150-420); Red Blood Count 4.42 M/mm3 (4.70-6.10); Red Cell Distribution Width 12.4 % (11.6-14.4); White Blood Count 7.2 K/mm3 (4.8-10.8)
[2021-03-23 04:52] LABS: Alanine Aminotransferase 63 U/L (16-63); Albumin Level 3.6 g/dL (3.4-5.0); Alkaline Phosphatase 64 U/L (46-116); Anion Gap 11 mmol/L (8-16); Aspartate Amino Transferase 44 U/L (15-37); Bilirubin,Total 0.3 mg/dL (0.00-1.00); Blood Urea Nitrogen 13 mg/dL (7-18); Calcium 8.7 mg/dL (8.5-10.1); Carbon Dioxide 25 mmol/L (21-32); Chloride 101 mmol/L (98-108); Estimated CRCL calculation 66 ml/min; Estimated Glomerular Filt Rate > 60; Glucose 152 mg/dL (70-99); Osmolality Calculated 287 mOsm/kg (285-295); Potassium 3.8 mmol/L (3.5-5.1); Sodium 137 mmol/L (136-145); Total Protein 6.9 g/dL (6.4-8.2); Troponin I 5.8 ng/L (0.00-60.4)
--- NOTE | 2021-03-23 05:01 | ED.ANXIETY ---
HPI - Anxiety General Chief Complaint: Anxiety Stated Complaint: Anxiety Source: patient History of Present Illness HPI narrative: This is a 56-year-old gentleman history of depression anxiety with aggressive behavior history presents after he woke up early this morning with some feeling shortness of breath with palpitations what appears to be is a typical anxiety attack. Patient is more relaxed and comfortable during my examination with no nausea vomiting no fever chills no shortness of breath no abdominal pain. complaint: anxiety Onset (ago): hour(s) Symptoms: dyspnea and palpitations Severity: mild Quality: intermittent Place: home History of similar episodes: Yes Provoking factors: none known Relieving factors: nothing Related Data Home Medications Medication Instructions Recorded Confirmed buspirone 15 mg tablet 30 mg PO BID 09/14/19 03/23/21 venlafaxine 150 mg 75 mg PO DAILY 09/14/19 03/23/21 capsule,extended release 24 hr aripiprazole 10 mg PO DAILY 03/10/21 03/23/21 lamotrigine 50 mg PO DAILY 03/10/21 03/23/21 trazodone 150 mg PO HS 03/10/21 03/23/21 Allergies Allergy/AdvReac Type Severity Reaction Status Date / Time No Known Allergies Allergy Verified 12/28/19 20:43 Review of Systems Review of Systems: All systems reviewed & are unremarkable except as noted in HPI and below PMFSH Past Medical History Medical History Anxiety Arthritis Depression Diverticulitis large intestine w/o perforation or abscess w/o bleeding Diverticulosis GERD (gastroesophageal reflux disease) Hepatic steatosis Hyperlipidemia Left renal stone Left ureteral stone Right kidney mass Umbilical hernia without obstruction and without gangrene Surgical History Surgical History H/O umbilical hernia repair History of eye surgery to remove metal in eye History of orthopedic surgery to remove pin out of left 1st digit Family History Family History Mother Patient's mother is Father Patient's father is Sibling Patient's sister is in good health Patient's brother is in good health Family history of coronary artery disease Breast cancer Stomach cancer Social History Social History Smoking status: Never smoker Alcohol intake: current Substance use: current Substance use type: marijuana Other substance usage details: occasional Last use: 2 weeks ago 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oncerns: Yes (Faith) Agree to blood products: Yes Exam Const: General: no acute distress Orientation/consciousness: patient oriented x3 HENMT: Head: normal to inspection Eyes: Conjunctivae: conjunctivae normal Pupils: Equal, round and reactive pupils present Chest: Chest palpation & inspection: normal inspection of the chest Cardio: Rate: regular rate Rhythm: regular rhythm GI: GI Palp: Yes Soft to palpation Urinary Catheter: Urinary Catheter: patent and draining Skin: General skin exam: normal color Rashes: no rashes Neuro: General: patient oriented x3 and moves all extremities Extrem: General: normal to inspection Psych: Appearance: grossly normal Mental Status: mental status grossly normal Course Course Emergency Course: Patient more comfortable with symptoms have improved and advised patient to follow-up with his primary care physician for further evaluation treatment. Patient refuse an Axe stating that it makes him more aggressive. Vital Signs Vital signs: Vital Signs Temperature 36.9 C 03/23/21 04:00 Pulse Rate 79 03/23/21 04:00 Respiratory Rate 20 03/23/21 04:00 Blood Pressure 119/86 03/23/21 04:00 Pulse Oximetry 97
[2021-03-23 05:02] VITALS: BP 124/75; PULSE 79; RESP 20; TEMP 36.6; O2SAT 97
--- NOTE | 2021-03-23 05:04 | PC.NURSE ---
PT SLEEPING, STATES FEELING BETTER WHEN AWAKENED.
== END 2021-03-23 05:05 | disposition home or self-care (01) ==
PROVIDERS: Emergency Provider Emergency Medicine
DX: F41.9 Anxiety disorder, unspecified (principal)
CPT/HCPCS: 36415; 71046; 80053; 84484; 85025; 93005; 99283; 99284; A9270

== ENCOUNTER 2021-03-25 01:24 | Emergency (ER) | payer OTHER, SELFPAY ==
[2021-03-25 01:24] VITALS: BP 124/91; PULSE 90; RESP 18; TEMP 36.8; O2SAT 97
--- NOTE | 2021-03-25 01:31 | ED.SOB ---
HPI - SOB/Dyspnea General Chief Complaint: Anxiety Stated Complaint: PAIN Time Seen by Provider: 03/25/21 01:43 Source: patient Mode of arrival: ambulatory Limitations: no limitations History of Present Illness HPI Narrative: 56-year-old man comes in today complaining of waking up, gasping for air. He states that has happened for the last few nights. He states that he has not been having any chest pain, ankle swelling, nausea, sweating, or dizziness. The symptoms resolve after a few minutes. He has no symptoms at present. He states his counselor has started him on aripiprazole and lamotrigine in the last few weeks. He states that he smokes marijuana daily. MD elicited complaint: shortness of breath Onset (ago): day(s) (3) Timing: intermittent and now resolved Severity: moderate Exacerbating factors: lying flat Relieving factors: rest Associated symptoms: denies other symptoms Treatment prior to arrival: none Related Data Home oxygen amount: none Home Medications Medication Instructions Recorded Confirmed buspirone 15 mg tablet 30 mg PO BID 09/14/19 03/25/21 venlafaxine 150 mg 75 mg PO DAILY 09/14/19 03/25/21 capsule,extended release 24 hr aripiprazole 10 mg PO DAILY 03/10/21 03/25/21 lamotrigine 50 mg PO DAILY 03/10/21 03/25/21 trazodone 150 mg PO HS 03/10/21 03/25/21 Allergies Allergy/AdvReac Type Severity Reaction Status Date / Time No Known Allergies Allergy Verified 12/28/19 20:43 Review of Systems Review of Systems: All systems reviewed & are unremarkable except as noted in HPI and below Constitutional: Constitutional: Denies chills and Denies fever(s) Eyes: Eyes: Denies change in vision and Denies photophobia ENT: Denies nasal congestion and Denies sore throat Cardiovascular: Cardiovascular: Reports chest pain and Reports radiating jaw, neck or arm pain Respiratory: Respiratory: Denies cough, Reports dyspnea and Denies wheezing Gastrointestinal: Gastrointestinal: Denies abdominal pain, Denies diarrhea, Denies nausea and Denies vomiting Genitourinary: Genitourinary: Denies dysuria and Denies urinary frequency Musculoskeletal: Musculoskeletal: Denies back pain, Denies arthralgias and Denies joint swelling Integumentary/Breasts: Skin/Breast: Reports pruritus, Reports erythema and Reports rash Neurologic: Denies vertigo, Denies dizziness, Denies syncope, Denies headache(s), Denies focal weakness and Denies numbness Hematologic/Lymphatic: Hematologic/Lymphatic: Denies easy bleeding and Denies easy bruising Allergic/Immunologic: Allergic/Immunologic: Denies lip swelling and Denies throat swelling PMFSH Past Medical History Medical History Anxiety Arthritis Depression Diverticulitis large intestine w/o perforation or abscess w/o bleeding Diverticulosis GERD (gastroesophageal reflux disease) Hepatic steatosis Hyperlipidemia Left renal stone Left ureteral stone Right kidney mass Umbilical hernia without obstruction and without gangrene Surgical History Surgical History H/O umbilical hernia repair History of eye surgery to remove metal in eye History of orthopedic surgery to remove pin out of left 1st digit Family History Family History Mother Patient's mother is Father Patient's father is Sibling Patient's sister is in good health Patient's brother is in good health Family history of coronary artery disease Breast cancer Stomach cancer Social History Social History Smoking status: Never smoker Alcohol intake: current Substance use: current Substance use type: marijuana Other substance usage details: occasional Last use: 2 weeks ago 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
--- NOTE | 2021-03-25 01:53 | ECG_ITS ---
Measurements Intervals [place] Rate: 82 P: 31 DC: 168 QRS: 71 QRSD: 94 T: 9 QT: 355 QTc: 416 Interpretive Statements SINUS RHYTHM BORDERLINE ST-T WAVE ABNORMALITY- INFERIOR LEADS BORDERLINE ECG Electronically Signed On 03-25-2021 10:15:09 CDT by Hang Lam D.O.
[2021-03-25 02:06] LABS: Basophils Absolute Auto 0.09 K/mm3 (0.00-0.10); Basophils Percent Auto 1.2 % (0.0-1.0); Eosinophils Absolute Auto 0.29 K/mm3 (0.02-0.50); Hemoglobin 12.8 g/dL (14.0-18.0); Immature Granulocyte Absolute 0.02 K/mm3 (0.00-0.00); Immature Granulocyte Percent A 0.3 % (0.0-0.0); Lymphocytes Absolute Auto 2.57 K/mm3 (1.10-4.50); Lymphocytes Percent Auto 35.1 % (18.0-42.0); Mean Corpuscular HGB Conc 34.6 g/dL (32.0-36.0); Mean Corpuscular Hemoglobin 31.8 pg (27.0-31.0); Mean Platelet Volume 7.9 fl (8.7-11.0); Monocytes Absolute Auto 0.42 K/mm3 (0.10-0.90); Monocytes Percent Auto 5.7 % (2.0-11.0); Neutrophils Absolute Auto 3.9 K/mm3 (1.7-7.2); Neutrophils Percent Auto 53.7 % (50.0-70.0); Platelet Count Result 200 K/mm3 (150-420); Red Blood Count 4.02 M/mm3 (4.70-6.10); Red Cell Distribution Width 12.4 % (11.6-14.4); White Blood Count 7.3 K/mm3 (4.8-10.8)
[2021-03-25 02:07] VITALS: BP 124/91; PULSE 90; RESP 18; TEMP 36.8; O2SAT 97
[2021-03-25 02:26] LABS: Alanine Aminotransferase 68 U/L (16-63); Albumin Level 3.3 g/dL (3.4-5.0); Alkaline Phosphatase 54 U/L (46-116); Anion Gap 11 mmol/L (8-16); Aspartate Amino Transferase 40 U/L (15-37); Bilirubin,Total 0.3 mg/dL (0.00-1.00); Blood Urea Nitrogen 12 mg/dL (7-18); Calcium 8.3 mg/dL (8.5-10.1); Carbon Dioxide 23 mmol/L (21-32); Chloride 104 mmol/L (98-108); Estimated CRCL calculation 74 ml/min; Estimated Glomerular Filt Rate > 60; Glucose 144 mg/dL (70-99); NT Pro B Type Natriuretic Pept < 5 pg/mL (0-125); Osmolality Calculated 288 mOsm/kg (285-295); Potassium 3.5 mmol/L (3.5-5.1); Sodium 138 mmol/L (136-145); Total Protein 6.5 g/dL (6.4-8.2)
--- NOTE | 2021-03-25 03:36 | PC.NURSE ---
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 pt states i just wanted to let you know that i was getting ready to fall asleep and i was breathing through my nose and not my mouth, maybe i have something in my nasal cavity , i stated i will let the doctor know. . dr wiseman at desk, informed directly what pt stated. directly as i was telling dr wiseman statement from pt, pt stormed out of room through breakaway doors and stomping up the hallway. pt has hx of violent behavior. pt stated i heard everything you said about me and slammed through the er exit door. pt departed facility. pt returned to front entrance and rang the [place]. pt stated, when they call me tomorrow to see how i was treated, im going to tell them. . i attempted to explain to pt that i was informing the doctor of his concerns. pt again departed facility and drove off from parking lot abruptly.
== END 2021-03-25 02:10 | disposition left against medical advice (07) ==
PROVIDERS: Emergency Provider Emergency Medicine
DX: R06.00 Dyspnea, unspecified (principal)
CPT/HCPCS: 36415; 80053; 83880; 84484; 85025; 93005; 99282; 99284

== ENCOUNTER 2022-10-21 02:39 | Emergency (ER) | payer OTHER, SELFPAY ==
[2022-10-21] VITALS (10 sets, daily range): BP systolic 119–154; BP diastolic 89–100; PULSE 54–67; RESP 14–21; TEMP 36.8; O2SAT 93–97
--- NOTE | ~2022-10-21 | XR_ITS ---
EXAMINATION: XR chest 1V portable DATE: 10/21/2022 03:08 INDICATION: Shortness of breath. Right chest pain. TECHNIQUE: A single frontal view of the chest was obtained. COMPARISON: Chest 2 views 03/23/2021, chest CT 03/10/2021 FINDINGS: The chest demonstrates clear lungs without pneumonia, pleural effusion, or pneumothorax. Th e heart size is normal. IMPRESSION: 1. No acute cardiopulmonary disease. Reviewed, dictated and finalized at location A. INSTRUMENT REPAIRER
--- NOTE | 2022-10-21 02:45 | ECG_ITS ---
Measurements Intervals [place] Rate: 60 P: 26 LA: 201 QRS: 59 QRSD: 89 T: 47 QT: 416 QTc: 417 Interpretive Statements SINUS RHYTHM LOW QRS VOLTAGE IN PRECORDIAL LEADS CANNOT RULE OUT SEPTAL INFARCT, AGE INDETERMINATE BASELINE ARTIFACT- I, II, III, AVR, AVL, AVF ABNORMAL ECG COMPARED TO ECG 03/25/2021 02:04:55 MYOCARDIAL INFARCT FINDING NOW PRESENT Electronically Signed On 10-21-2022 6:46:56 MED DIR by Hang Lam D.O.
--- NOTE | 2022-10-21 02:54 | ED.CHESTPAIN ---
HPI - Chest Pain General Chief Complaint: Chest Pain Stated Complaint: Chest Pain Time Seen by Provider: 10/21/22 02:53 History of Present Illness HPI narrative: 57-year-old male patient is in the ER with complaints of experiencing chest pain and shortness of breath after he laid down to go to sleep. He states that he had to sit up and catch his breath and he has not tried to lie down again since then. Apparently the patient has the history of anxiety and he did take his anxiety medications before coming here however he wanted to be checked out. Patient states that this has happened in the past also and is usually related to his hyperventilation and anxiety. At present he is not having any trouble with breathing and is wake about the chest pain being localized on the right side. He has not noticed any breathing difficulty otherwise. He has not noticed any ankle swelling or experienced any pain in the neck jaw or arms. The patient denies smoking cigarettes but does occasionally smoke weed. Denies any alcohol.. The patient states that he has history of bipolar depression and anxiety and is on a list of medications. Related Data Home Medications Medication Instructions Recorded Confirmed buspirone 15 mg tablet 30 mg PO BID 09/14/19 03/25/21 venlafaxine 150 mg 75 mg PO DAILY 09/14/19 03/25/21 capsule,extended release 24 hr (Effexor XR) aripiprazole 10 mg tablet 10 mg PO DAILY 03/10/21 03/25/21 lamotrigine 25 mg tablet 50 mg PO DAILY 03/10/21 03/25/21 trazodone 150 mg tablet 150 mg PO HS 03/10/21 03/25/21 Allergies Allergy/AdvReac Type Severity Reaction Status Date / Time No Known Allergies Allergy Verified 12/28/19 20:43 Review of Systems Review of Systems: All systems reviewed & are unremarkable except as noted in HPI and below Constitutional: Constitutional: Reports no additional constitutional complaints Eyes: Eyes: Reports no additional eye complaints ENT: Reports system reviewed and no additional complaints, except as documented Cardiovascular: Cardiovascular: Reports no additional cardiovascular complaints Respiratory: Respiratory: Reports no additional respiratory complaints, Denies chest congestion, Denies cough and Denies wheezing Gastrointestinal: Gastrointestinal: Reports no additional gastrointestinal complaints, Denies nausea and Denies vomiting Genitourinary: Genitourinary: Reports no additional male genitourinary complaints Musculoskeletal: Musculoskeletal: Reports no additional musculoskeletal complaints Integumentary/Breasts: Skin/Breast: Reports system reviewed and no additional complaints, except as docu Neurologic: Reports system reviewed and no additional complaints, except as documented Psychiatric: Psychiatric: Reports no additional psychiatric complaints Endocrine: Endocrine: Reports no additional endocrine complaints Allergic/Immunologic: Allergic/Immunologic: Reports no additional allergic/immunologic complaints PMFSH Past Medical History Medical History Anxiety Arthritis Depression Diverticulitis large intestine w/o perforation or abscess w/o bleeding Diverticulosis GERD (gastroesophageal reflux disease) Hepatic steatosis Hyperlipidemia Left renal stone Left ureteral stone Right kidney mass Umbilical hernia without obstruction and without gangrene Surgical History Surgical History H/O umbilical hernia repair History of eye surgery to remove metal in eye History of orthopedic surgery to remove pin out of left 1st digit Family History Family History Mother Patient's mother is Father Patient's father is Sibling Patient's sister is in good health Patient's brother is in good health Family history of coronary artery disease Breast cancer Stomach cancer Social History S
[2022-10-21] MEDS: ASPIRIN 81 MG CHEWABLE TABLET 324 MG PO (03:06)
[2022-10-21 03:33] LABS: Basophils Absolute Auto 0.07 K/mm3 (0.00-0.10); Basophils Percent Auto 1.2 % (0.0-1.0); Eosinophils Absolute Auto 0.29 K/mm3 (0.02-0.50); Eosinophils Percent Auto 5.1 % (1.0-6.0); Hematocrit 37.1 % (40.0-54.0); Immature Granulocyte Absolute 0.02 K/mm3 (0.00-0.00); Immature Granulocyte Percent A 0.4 % (0.0-0.0); Lymphocytes Absolute Auto 2.31 K/mm3 (1.10-4.50); Lymphocytes Percent Auto 40.5 % (18.0-42.0); Mean Corpuscular Hemoglobin 31.7 pg (27.0-31.0); Mean Corpuscular Volume 90.5 fL (78.0-102.0); Mean Platelet Volume 8.4 fl (8.7-11.0); Monocytes Absolute Auto 0.46 K/mm3 (0.10-0.90); Monocytes Percent Auto 8.1 % (2.0-11.0); Neutrophils Absolute Auto 2.6 K/mm3 (1.7-7.2); Neutrophils Percent Auto 44.7 % (50.0-70.0); Platelet Count Result 163 K/mm3 (150-420); Red Cell Distribution Width 12.4 % (11.6-14.4); White Blood Count 5.7 K/mm3 (4.8-10.8)
[2022-10-21 03:46] LABS: D Dimer 0.48 mg/L (0.19-0.50)
[2022-10-21 03:54] LABS: Alanine Aminotransferase 74 U/L (16-63); Albumin Level 3.4 g/dL (3.4-5.0); Alkaline Phosphatase 69 U/L (46-116); Anion Gap 6 mmol/L (8-16); Aspartate Amino Transferase 58 U/L (15-37); Bilirubin,Total 0.3 mg/dL (0.00-1.00); Blood Urea Nitrogen 8 mg/dL (7-18); Calcium 8.4 mg/dL (8.5-10.1); Carbon Dioxide 28 mmol/L (21-32); Chloride 107 mmol/L (98-108); Estimated CRCL calculation 105 ml/min; Estimated Glomerular Filt Rate > 60; Glucose 118 mg/dL (70-99); NT Pro B Type Natriuretic Pept 67 pg/mL (0-125); Osmolality Calculated 291 mOsm/kg (285-295); Potassium 3.5 mmol/L (3.5-5.1); Sodium 141 mmol/L (136-145); Total Protein 6.5 g/dL (6.4-8.2); Troponin I 7.8 ng/L (0.00-60.4)
== END 2022-10-21 04:10 | disposition home or self-care (01) ==
PROVIDERS: Emergency Provider Emergency Medicine
DX: R07.89 Other chest pain (principal); F41.9 Anxiety disorder, unspecified; R06.02 Shortness of breath; E78.5 Hyperlipidemia, unspecified; K21.9 Gastro-esophageal reflux disease without esophagitis; K76.0 Fatty (change of) liver, not elsewhere classified; F32.A Depression, unspecified; F12.90 Cannabis use, unspecified, uncomplicated
CPT/HCPCS: 36415; 71045; 80053; 83880; 84484; 85025; 85380; 93005; 99284; A9270

== ENCOUNTER 2022-10-22 21:04 | Emergency (ER) | payer OTHER, SELFPAY ==
[2022-10-22 21:05] VITALS: BP 153/95; PULSE 76; RESP 18; TEMP 37.1; O2SAT 96
--- NOTE | 2022-10-22 21:08 | ED.ARRPALP ---
HPI - Arrhythmia/Palpitations General Chief Complaint: Dizziness Stated Complaint: diizy, hearts pounding Time Seen by Provider: 10/22/22 21:07 Source: patient and RN notes reviewed Mode of arrival: ambulatory Limitations: no limitations History of Present Illness HPI narrative: patient was just here 36 hours ago for chest heaviness had a complete work up for cardiac abnormalities. Nothing was found he was diagnosed with some anxiety which he has a history of. Today he says that it feels different. He says that he is having dizziness when he changes positions. When he has the dizziness he feels unsteady like he is going to pass out and feels like his heart is pounding. He arrives and put on the monitor and he is not having any tachycardia. He denies any nausea vomiting. He denies any fever chills. He does state that he recently had a cold . complaint: heart racing Onset (ago): day(s) (2) Duration: constant Severity: moderate Context: occurred during rest Associated symptoms: other ( dizziness) Related Data Home Medications Medication Instructions Recorded Confirmed buspirone 15 mg tablet 30 mg PO BID 09/14/19 10/22/22 venlafaxine 150 mg 75 mg PO DAILY 09/14/19 10/22/22 capsule,extended release 24 hr (Effexor XR) aripiprazole 10 mg tablet 10 mg PO DAILY 03/10/21 10/22/22 lamotrigine 25 mg tablet 50 mg PO DAILY 03/10/21 10/22/22 trazodone 150 mg tablet 150 mg PO HS 03/10/21 10/22/22 Allergies Allergy/AdvReac Type Severity Reaction Status Date / Time No Known Allergies Allergy Verified 10/22/22 21:28 Review of Systems Review of Systems: All systems reviewed & are unremarkable except as noted in HPI and below PMFSH Past Medical History Medical History Anxiety Arthritis Depression Diverticulitis large intestine w/o perforation or abscess w/o bleeding Diverticulosis GERD (gastroesophageal reflux disease) Hepatic steatosis Hyperlipidemia Left renal stone Left ureteral stone Right kidney mass Umbilical hernia without obstruction and without gangrene Surgical History Surgical History H/O umbilical hernia repair History of eye surgery to remove metal in eye History of orthopedic surgery to remove pin out of left 1st digit Family History Family History Mother Patient's mother is Father Patient's father is Sibling Patient's sister is in good health Patient's brother is in good health Family history of coronary artery disease Breast cancer Stomach cancer Social History Social History Smoking status: Never smoker Alcohol intake: current Substance use: current Substance use type: marijuana Other substance usage details: occasional Last use: 2 weeks ago 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oncerns: Yes (Shinto) Agree to blood products: Yes Exam Const: General: healthy appearing, no acute distress and alert Nutritional Appearance: well nourished and obese centrally obese Orientation/consciousness: patient oriented x3 Limitations: no limitations HENMT: Head: normal to inspection Ears: external ears normal Eyes: Conjunctivae: conjunctivae normal Pupils: Equal, round and reactive pupils present EOM: EOMs intact bilaterally Neck: Neck: normal visual inspection Resp: Effort & Inspection: normal respiratory effort Auscultation: clear to auscultation bilaterally Cardio: Rate: regular rate Rhythm: regular rhythm GI: GI Palp: Yes Soft to palpation and No Tenderness to palpation present (GI) Auscultation: normal bowel sounds Back/Spine/Pelvis: Cervical Spine: cervical ROM normal Thoracic/Lumbar Spine: thoraco-lumbar ROM normal Skin:
[2022-10-22 21:10] VITALS: PULSE 72
--- NOTE | 2022-10-22 21:13 | ECG_ITS ---
Measurements Intervals [place] Rate: 71 P: 40 MT: 190 QRS: 0 QRSD: 98 T: 33 QT: 392 QTc: 426 Interpretive Statements SINUS RHYTHM CANNOT RULE OUT SEPTAL INFARCT, AGE INDETERMINATE BASELINE ARTIFACT- I, III, AVR, AVL, AVF ABNORMAL ECG COMPARED TO ECG 10/21/2022 02:49:10 NO SIGNIFICANT CHANGES Electronically Signed On 10-23-2022 7:59:27 HAM ROLLING MACHINE OPERATOR by Hang Lam D.O.
[2022-10-22 21:19] VITALS: BP 153/95; PULSE 76; RESP 18; TEMP 37.1
[2022-10-22 21:34] LABS: Basophils Absolute Auto 0.05 K/mm3 (0.00-0.10); Basophils Percent Auto 0.7 % (0.0-1.0); Eosinophils Absolute Auto 0.25 K/mm3 (0.02-0.50); Eosinophils Percent Auto 3.5 % (1.0-6.0); Hematocrit 36.6 % (40.0-54.0); Hemoglobin 12.8 g/dL (14.0-18.0); Immature Granulocyte Absolute 0.03 K/mm3 (0.00-0.00); Immature Granulocyte Percent A 0.4 % (0.0-0.0); Lymphocytes Absolute Auto 2.93 K/mm3 (1.10-4.50); Lymphocytes Percent Auto 41.6 % (18.0-42.0); Mean Corpuscular Hemoglobin 31.6 pg (27.0-31.0); Mean Corpuscular Volume 90.4 fL (78.0-102.0); Mean Platelet Volume 8.1 fl (8.7-11.0); Monocytes Absolute Auto 0.52 K/mm3 (0.10-0.90); Monocytes Percent Auto 7.4 % (2.0-11.0); Neutrophils Absolute Auto 3.3 K/mm3 (1.7-7.2); Neutrophils Percent Auto 46.4 % (50.0-70.0); Platelet Count Result 196 K/mm3 (150-420); Red Blood Count 4.05 M/mm3 (4.70-6.10); Red Cell Distribution Width 12.5 % (11.6-14.4); White Blood Count 7.1 K/mm3 (4.8-10.8)
[2022-10-22 21:50] VITALS: BP 154/90; PULSE 77; RESP 16; TEMP 36.8; O2SAT 98
[2022-10-22 21:57] LABS: Alanine Aminotransferase 82 U/L (16-63); Albumin Level 3.5 g/dL (3.4-5.0); Alkaline Phosphatase 67 U/L (46-116); Anion Gap 7 mmol/L (8-16); Aspartate Amino Transferase 58 U/L (15-37); Bilirubin,Total 0.3 mg/dL (0.00-1.00); Blood Urea Nitrogen 10 mg/dL (7-18); Calcium 8.4 mg/dL (8.5-10.1); Carbon Dioxide 29 mmol/L (21-32); Chloride 104 mmol/L (98-108); Estimated CRCL calculation 91 ml/min; Estimated Glomerular Filt Rate > 60; Glucose 107 mg/dL (70-99); Osmolality Calculated 289 mOsm/kg (285-295); Potassium 3.7 mmol/L (3.5-5.1); Sodium 140 mmol/L (136-145); Thyroid Stimulating Hormone 2.02 uIU/mL (0.36-3.74); Total Protein 6.7 g/dL (6.4-8.2)
[2022-10-22 21:59] LABS: CRP < 0.5 mg/dL (0.0-0.9); Magnesium 1.7 mg/dL (1.8-2.4); Troponin I 7.1 ng/L (0.00-60.4)
[2022-10-22] MEDS: MECLIZINE HCL 25 MG TABLET PO (22:08)
== END 2022-10-22 22:17 | disposition home or self-care (01) ==
PROVIDERS: Emergency Provider Emergency Medicine
DX: H81.10 Benign paroxysmal vertigo, unspecified ear (principal); K76.0 Fatty (change of) liver, not elsewhere classified; F41.9 Anxiety disorder, unspecified; F32.A Depression, unspecified; F12.90 Cannabis use, unspecified, uncomplicated
CPT/HCPCS: 36415; 80053; 83735; 84443; 84484; 85025; 85380; 86140; 93005; 99284; A9270

== ENCOUNTER 2022-11-11 15:08 | Emergency (ER) | payer OTHER, SELFPAY ==
--- NOTE | ~2022-11-11 | XR_ITS ---
EXAMINATION: [id number] INDICATION: Left-sided chest pain TECHNIQUE: PA and lateral views of the chest and 3 views of the left ribs were obtained. COMPARISON: 03/23/2021 FINDINGS: The lungs are free of acute opacities. No pleural effusion or pneumothorax. The cardiomedia stinal silhouette is normal. There is moderate thoracic spondylosis. An old healed fracture of the le ft 10th rib is noted. No acute displaced rib fracture is identified. IMPRESSION: 1. No acute cardiopulmonary abnormality or evidence of acute, displaced rib fracture. Reviewed, dictated and finalized at location [facility] [employer] IMPRESSION: 1. No acute cardiopulmonary abnormality or evidence of acute, displaced rib fra cture.
--- NOTE | 2022-11-11 15:10 | ED.FALL ---
HPI - Fall General Chief Complaint: Back Pain/Injury Stated Complaint: Fall Time Seen by Provider: 11/11/22 15:10 Source: patient Mode of arrival: ambulatory Limitations: no limitations History of Present Illness HPI Narrative: 57-year-old male with a history anxiety/depression, benign positional vertigo, kidney stones, diverticulosis, hepatic steatosis, dyslipidemia, presents to the ER after his slipped and fell at 11:00 a.m. on his left posterior chest wall. No head injury. No loss of consciousness. he presents with -- left posterior chest wall pain which is made worse by deep breathing and palpation. No shortness of breath. MD complaint: fall Onset (ago): hour(s) ( 4 hours ago) Fall from: standing Fall witnessed: no Place fall occurred: home and work Loss of consciousness: none Prolonged down time: no Symptoms prior to fall: none Context: tripped/slipped Related Data Home Medications Medication Instructions Recorded Confirmed buspirone 15 mg tablet 30 mg PO BID 09/14/19 10/22/22 venlafaxine 150 mg 75 mg PO DAILY 09/14/19 10/22/22 capsule,extended release 24 hr (Effexor XR) aripiprazole 10 mg tablet 10 mg PO DAILY 03/10/21 10/22/22 lamotrigine 25 mg tablet 50 mg PO DAILY 03/10/21 10/22/22 trazodone 150 mg tablet 150 mg PO HS 03/10/21 10/22/22 Allergies Allergy/AdvReac Type Severity Reaction Status Date / Time No Known Allergies Allergy Verified 11/11/22 15:56 Review of Systems Review of Systems: All systems reviewed & are unremarkable except as noted in HPI and below Constitutional: Constitutional: Reports as per HPI and Reports no additional constitutional complaints Eyes: Eyes: Reports as per HPI and Reports no additional eye complaints ENT: Reports system reviewed and no additional complaints, except as documented and Reports as per HPI Cardiovascular: Cardiovascular: Reports as per HPI and Reports no additional cardiovascular complaints Respiratory: Respiratory: Reports as per HPI and Reports no additional respiratory complaints Comments: left posterior chest wall pain made worse by deep breathing. Gastrointestinal: Gastrointestinal: Reports as per HPI and Reports no additional gastrointestinal complaints Genitourinary: Genitourinary: Reports no additional male genitourinary complaints and Reports as per HPI Musculoskeletal: Musculoskeletal: Reports no additional musculoskeletal complaints and Reports as per HPI Integumentary/Breasts: Skin/Breast: Reports system reviewed and no additional complaints, except as docu and Reports as per HPI Neurologic: Reports system reviewed and no additional complaints, except as documented and Reports as per HPI Psychiatric: Psychiatric: Reports no additional psychiatric complaints and Reports as per HPI Endocrine: Endocrine: Reports no additional endocrine complaints and Reports as per HPI Hematologic/Lymphatic: Hematologic/Lymphatic: Reports no additional hematologic/lymphatic complaints and Reports as per HPI Allergic/Immunologic: Allergic/Immunologic: Reports no additional allergic/immunologic complaints and Reports as per HPI [facility] Past Medical History Medical History Anxiety Arthritis Depression Diverticulitis large intestine w/o perforation or abscess w/o bleeding Diverticulosis GERD (gastroesophageal reflux disease) Hepatic steatosis Hyperlipidemia Left renal stone Left ureteral stone Right kidney mass Umbilical hernia without obstruction and without gangrene Surgical History Surgical History H/O umbilical hernia repair History of eye surgery to remove metal in eye History of orthopedic surgery to remove pin out of left 1st digit Family History Family History Mother Patient's mother is Father Patient's father is Sibling Patient
[2022-11-11 15:21] VITALS: BP 149/99; PULSE 72; RESP 20; TEMP 36.4; O2SAT 98
[2022-11-11] MEDS: KETOROLAC 30 MG/ML VIAL (*BKC) IM (15:35)
--- NOTE | 2022-11-11 15:53 | PC.NURSE ---
Pt c.o pain to left side of his back after a mechanical fall this morning
[2022-11-11 16:26] VITALS: BP 152/117; PULSE 72; RESP 20; TEMP 36.3; O2SAT 95
== END 2022-11-11 16:28 | disposition home or self-care (01) ==
PROVIDERS: Emergency Provider Internal Medicine Critical Care Medicine
DX: R07.89 Other chest pain (principal); E78.5 Hyperlipidemia, unspecified; W01.0XXA Fall on same level from slipping, tripping and stumbling without subsequent striking against object, initial encounter; Y92.009 Unspecified place in unspecified non-institutional (private) residence as the place of occurrence of the external cause
CPT/HCPCS: 71101; 96372; 99283; J1885

== ENCOUNTER 2024-01-04 00:43 | Emergency (ER) | payer SELFPAY ==
[2024-01-04 00:45] VITALS: BP 127/92; PULSE 65; RESP 20; TEMP 36; O2SAT 97
--- NOTE | 2024-01-04 01:02 | ECG_ITS ---
Measurements Intervals [place] Rate: 62 P: 21 NV: 174 QRS: 4 QRSD: 105 T: 37 QT: 421 QTc: 430 Interpretive Statements SINUS RHYTHM CANNOT RULE OUT SEPTAL INFARCT, AGE INDETERMINATE ABNORMAL ECG COMPARED TO ECG 10/22/2022 21:24:11 NO SIGNIFICANT CHANGES Electronically Signed On 01-04-2024 7:52:00 CDT by Hang Lam D.O.
--- NOTE | 2024-01-04 01:02 | ED.ANXIETY ---
HPI - Anxiety General Chief Complaint: Anxiety Stated Complaint: Anxiety Attack Source: patient Mode of arrival: ambulatory History of Present Illness HPI narrative: Patient is a 58-year-old male with significant past medical history presents today for anxiety attack. Patient has multiple PACs the past. He takes hydroxyzine 3 times a day. And then takes it as needed. Today he did take his medication dosage. He states he was sleeping woke up with a panic attack. He took another 1 in the wound not subside. Normally this subsided within 1 hour. When he came to the emergency department he was calm and collected and his vitals were all WNL. He denies any chest pain or shortness of breath. He states that now he feels fine and is feeling much better since he got emergency department. complaint: anxiety Onset (ago): hour(s) Symptoms: palpitations Severity: mild Quality: constant Place: home History of similar episodes: Yes Provoking factors: emotional stress Relieving factors: medication Exacerbating factors: nothing Associated symptoms: denies other symptoms Related Data Home Medications Medication Instructions Recorded Confirmed buspirone 15 mg tablet 30 mg PO BID 09/14/19 01/04/24 aripiprazole 10 mg tablet 10 mg PO DAILY 03/10/21 01/04/24 doxepin 10 mg capsule 10 mg PO HS 01/04/24 01/04/24 hydroxyzine pamoate 25 mg capsule 25 mg PO TID PRN Anxiety 01/04/24 01/04/24 lamotrigine 100 mg tablet 100 mg PO BID 01/04/24 01/04/24 Allergies Allergy/AdvReac Type Severity Reaction Status Date / Time No Known Allergies Allergy Verified 11/11/22 15:56 Review of Systems Review of Systems: All systems reviewed & are unremarkable except as noted in HPI and below Constitutional: Constitutional: Reports as per HPI Eyes: Eyes: Reports no additional eye complaints ENT: Reports system reviewed and no additional complaints, except as documented Cardiovascular: Cardiovascular: Reports rapid heart rate Respiratory: Respiratory: Reports no additional respiratory complaints Gastrointestinal: Gastrointestinal: Reports no additional gastrointestinal complaints Genitourinary: Genitourinary: Reports no additional male genitourinary complaints Musculoskeletal: Musculoskeletal: Reports no additional musculoskeletal complaints Integumentary/Breasts: Skin/Breast: Reports system reviewed and no additional complaints, except as docu Neurologic: Reports system reviewed and no additional complaints, except as documented Psychiatric: Psychiatric: Reports no additional psychiatric complaints Endocrine: Endocrine: Reports no additional endocrine complaints Hematologic/Lymphatic: Hematologic/Lymphatic: Reports no additional hematologic/lymphatic complaints Allergic/Immunologic: Allergic/Immunologic: Reports no additional allergic/immunologic complaints PMFSH Past Medical History Medical History Anxiety Arthritis Depression Diverticulitis large intestine w/o perforation or abscess w/o bleeding Diverticulosis GERD (gastroesophageal reflux disease) Hepatic steatosis Hyperlipidemia Left renal stone Left ureteral stone Right kidney mass Umbilical hernia without obstruction and without gangrene Surgical History Surgical History H/O umbilical hernia repair History of eye surgery to remove metal in eye History of orthopedic surgery to remove pin out of left 1st digit Family History Family History Mother Patient's mother is Father Patient's father is Sibling Patient's sister is in good health Patient's brother is in good health Family history of coronary artery disease Breast cancer Stomach cancer Social History Social History Smoking status: Never smoker Alcohol intake:
[2024-01-04 01:05] VITALS: BP 122/89; PULSE 70; RESP 18; O2SAT 97
--- NOTE | 2024-01-04 01:13 | PC.NURSE ---
Pt reports feeling better and less anxious since arriving in ER, VSS, no c/o at this time.
[2024-01-04 01:20] VITALS: BP 130/84; PULSE 74; RESP 18; TEMP 36.5; O2SAT 98
== END 2024-01-04 01:20 | disposition home or self-care (01) ==
PROVIDERS: Emergency Provider Family Medicine
DX: F41.0 Panic disorder [episodic paroxysmal anxiety] (principal); E78.5 Hyperlipidemia, unspecified; K21.9 Gastro-esophageal reflux disease without esophagitis
CPT/HCPCS: 93005; 99283

== ENCOUNTER 2024-06-06 22:48 | Emergency (ER) | payer OTHER, SELFPAY ==
[2024-06-06 22:50] VITALS: BP 135/83; PULSE 65; RESP 18; TEMP 36.8; O2SAT 98
--- NOTE | 2024-06-06 23:19 | PC.NURSE ---
patient is sitting quietly on stretcher. has the tv on for distraction. call light in reach
--- NOTE | 2024-06-06 23:27 | ED.ANXIETY ---
HPI - Anxiety General Chief Complaint: Anxiety Stated Complaint: Anxiety Attack Time Seen by Provider: 06/06/24 22:56 Source: patient Mode of arrival: ambulatory Limitations: no limitations History of Present Illness HPI narrative: Patient is a 59-year-old male with anxiety and panic attack this evening. He took his home medications and by the time he got to the ER the panic attack has resolved that he is feeling better now. MD complaint: anxiety Onset (ago): hour(s) (1) Symptoms: sense of impending doom Severity: moderate Quality: constant Place: home History of similar episodes: Yes Provoking factors: none known Relieving factors: nothing Exacerbating factors: other ( Home hydroxyzine has helped) Associated symptoms: denies other symptoms Related Data Home Medications Medication Instructions Recorded Confirmed buspirone 15 mg tablet 30 mg PO BID 09/14/19 06/06/24 aripiprazole 10 mg tablet 10 mg PO DAILY 03/10/21 06/06/24 doxepin 10 mg capsule 10 mg PO HS 01/04/24 06/06/24 hydroxyzine pamoate 25 mg capsule 25 mg PO TID PRN Anxiety 01/04/24 06/06/24 lamotrigine 100 mg tablet 100 mg PO BID 01/04/24 06/06/24 Allergies Allergy/AdvReac Type Severity Reaction Status Date / Time No Known Allergies Allergy Verified 11/11/22 15:56 Review of Systems Review of Systems: All systems reviewed & are unremarkable except as noted in HPI and below Constitutional: Constitutional: Reports no additional constitutional complaints Eyes: Eyes: Reports no additional eye complaints ENT: Reports system reviewed and no additional complaints, except as documented Cardiovascular: Cardiovascular: Reports no additional cardiovascular complaints Respiratory: Respiratory: Reports no additional respiratory complaints Gastrointestinal: Gastrointestinal: Reports no additional gastrointestinal complaints Genitourinary: Genitourinary: Reports no additional male genitourinary complaints Musculoskeletal: Musculoskeletal: Reports no additional musculoskeletal complaints Integumentary/Breasts: Skin/Breast: Reports system reviewed and no additional complaints, except as docu Neurologic: Reports system reviewed and no additional complaints, except as documented Psychiatric: Psychiatric: Reports no additional psychiatric complaints Endocrine: Endocrine: Reports no additional endocrine complaints Hematologic/Lymphatic: Hematologic/Lymphatic: Reports no additional hematologic/lymphatic complaints Allergic/Immunologic: Allergic/Immunologic: Reports no additional allergic/immunologic complaints PMFSH Past Medical History Medical History Anxiety Arthritis Depression Diverticulitis large intestine w/o perforation or abscess w/o bleeding Diverticulosis GERD (gastroesophageal reflux disease) Hepatic steatosis Hyperlipidemia Left renal stone Left ureteral stone Right kidney mass Umbilical hernia without obstruction and without gangrene Surgical History Surgical History H/O umbilical hernia repair History of eye surgery to remove metal in eye History of orthopedic surgery to remove pin out of left 1st digit Family History Family History Mother Patient's mother is Father Patient's father is Sibling Patient's sister is in good health Patient's brother is in good health Family history of coronary artery disease Breast cancer Stomach cancer Social History Social History Smoking status: Never smoker Alcohol intake: current Substance use: current Substance use type: marijuana Other substance usage details: occasional Last use: 2 weeks ago 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
--- NOTE | 2024-06-06 23:29 | PC.NURSE ---
Dr Dalal at the bedside.
--- NOTE | 2024-06-06 23:32 | PC.NURSE ---
patient reports that he is feeling better and is ready to go home.
== END 2024-06-06 23:37 | disposition home or self-care (01) ==
PROVIDERS: Emergency Provider Emergency Medicine
DX: F41.9 Anxiety disorder, unspecified (principal); E78.5 Hyperlipidemia, unspecified; Z79.899 Other long term (current) drug therapy
CPT/HCPCS: 99281

== ENCOUNTER 2024-09-18 22:45 | Emergency (ER) | payer OTHER, SELFPAY ==
[2024-09-18 22:47] VITALS: BP 157/95; PULSE 105; RESP 18; TEMP 36.9; O2SAT 96
--- NOTE | 2024-09-18 23:00 | ED.ANXIETY ---
HPI - Anxiety General Chief Complaint: Anxiety Stated Complaint: axiety Time Seen by Provider: 09/18/24 22:53 Source: patient Mode of arrival: ambulatory Limitations: no limitations History of Present Illness HPI narrative: this is a 59-year-old male with history of bipolar disorder and anxiety disorder presents after a long day work and went home and had an anxiety attack did take 1mg and had improved his symptoms but felt like he was just still a bit anxious and presents to the emergency department. Currently doing well no palpitations no shortness of breaths. complaint: anxiety Onset (ago): hour(s) Severity: mild Quality: improving Related Data Allergies Allergy/AdvReac Type Severity Reaction Status Date / Time No Known Allergies Allergy Verified 09/18/24 22:54 Review of Systems Review of Systems: All systems reviewed & are unremarkable except as noted in HPI and below PMFSH Past Medical History Medical History Anxiety Arthritis Depression Diverticulitis large intestine w/o perforation or abscess w/o bleeding Diverticulosis GERD (gastroesophageal reflux disease) Hepatic steatosis Hyperlipidemia Left renal stone Left ureteral stone Right kidney mass Umbilical hernia without obstruction and without gangrene Surgical History Surgical History H/O umbilical hernia repair History of eye surgery to remove metal in eye History of orthopedic surgery to remove pin out of left 1st digit Family History Family History Mother Patient's mother is Father Patient's father is Sibling Patient's sister is in good health Patient's brother is in good health Family history of coronary artery disease Breast cancer Stomach cancer Social History Social History Smoking status: Never smoker Alcohol intake: current Substance use: current Substance use type: marijuana Other substance usage details: occasional Last use: 2 weeks ago Occupation/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oncerns: Yes (Anabaptist) Agree to blood products: Yes Exam Const: General: healthy appearing and no acute distress Nutritional Appearance: well nourished Orientation/consciousness: patient oriented x3 Limitations: no limitations Eyes: Conjunctivae: conjunctivae normal Pupils: Equal, round and reactive pupils present EOM: EOMs intact bilaterally Neck: Neck: normal visual inspection Cardio: Rate: regular rate Rhythm: regular rhythm GI: GI Palp: Yes Soft to palpation Auscultation: normal bowel sounds Urinary Catheter: Urinary Catheter: patent and draining Back/Spine/Pelvis: Back: no CVA tenderness Skin: General skin exam: normal color Rashes: no rashes Neuro: General: patient oriented x3, moves all extremities, no meningeal signs and no focal motor deficits Extrem: General: normal to inspection and no clubbing, cyanosis or edema Course Course Emergency Course: Patient symptoms already have improved but will administer 0.5mg Xanax p.o.. Vital Signs Vital signs: Vital Signs Temperature 36.9 C 09/18/24 22:47 Pulse Rate 105 H 09/18/24 22:47 Respiratory Rate 18 09/18/24 22:47 Blood Pressure 157/95 H 09/18/24 22:47 Pulse Oximetry 96 09/18/24 22:47 Oxygen Delivery Room Air 09/18/24 22:47 Temperature 36.9 C 09/18/24 22:47 Pulse Rate 105 H 09/18/24 22:47 Respiratory Rate 18 09/18/24 22:47 Blood Pressure 157/95 H 09/18/24 22:47 Pulse Oximetry 96 09/18/24 22:47 Oxygen Delivery Room Air 09/18/24 22:47 Critical Care Time Critical Care Time Critical Care Time: No Discharge Plan Discharge Clinical Impression: Acute anxiety Patient Disposition: Home, Self-Care Condition: Stable Instructions: Antibiotic Form, Anxiety (ED) Additional Instructions: Advised patient to take medication that was prescribed by his primary /psychologist and a follow-up within 1 week for further evaluation and treatment. Prescriptions: No Action aripiprazole 10 mg tablet 10 mg PO DAILY doxepin 10 mg capsule 10 mg PO HS lamotrigine 100 mg tablet 100 mg PO BID hydroxyzine pamoate 25 mg capsule 25 mg PO TID PRN (Reason: Anxiety) buspirone 15 mg tablet 30 mg PO BID Follow-up/Referrals: UNKNOWN,DOCTOR [Primary Care Provider] - Time of Disposition: 23:06
[2024-09-18] MEDS: ALPRAZolam (*CRX) 0.5 MG TABLET PO (23:08)
[2024-09-19 00:30] VITALS: BP 155/88; PULSE 99; RESP 18; TEMP 36.6; O2SAT 96
== END 2024-09-19 00:35 | disposition home or self-care (01) ==
PROVIDERS: Emergency Provider Emergency Medicine
DX: F41.9 Anxiety disorder, unspecified (principal)
CPT/HCPCS: 99283; A9270

== ENCOUNTER 2024-10-25 06:38 | Emergency (ER) | payer BC, SELFPAY ==
[2024-10-25 06:38] VITALS: BP 151/77; PULSE 77; RESP 18; TEMP 36.6; O2SAT 100
--- NOTE | 2024-10-25 07:03 | ED.ANXIETY ---
HPI - Anxiety General Chief Complaint: Anxiety Stated Complaint: Anxiety History of Present Illness HPI narrative: Pt is between PCP's due to change in insurance at work and is out of his medications. Pt says his meds were working great but now he is quite anxious and just needs back on his meds. Pt not suicidal and no other concerns. Related Data Home Medications ?Medication ?Instructions ?Recorded ?Confirmed ?Last Taken ?Type aripiprazole 15 mg tablet mg 10/25/24 Unknown History buspirone 15 mg tablet mg 10/25/24 Unknown History doxepin 10 mg capsule mg 10/25/24 Unknown History hydroxyzine pamoate 25 mg capsule mg 10/25/24 Unknown History lamotrigine 100 mg tablet mg 10/25/24 Unknown History Allergies Allergy/AdvReac Type Severity Reaction Status Date / Time No Known Allergies Allergy Verified 10/25/24 06:47 Review of Systems Review of Systems: All systems reviewed & are unremarkable except as noted in HPI and below PMFSH Past Medical History Medical History Anxiety Arthritis Depression Diverticulitis large intestine w/o perforation or abscess w/o bleeding Diverticulosis GERD (gastroesophageal reflux disease) Hepatic steatosis Hyperlipidemia Left renal stone Left ureteral stone Right kidney mass Umbilical hernia without obstruction and without gangrene Surgical History Surgical History H/O umbilical hernia repair History of eye surgery to remove metal in eye History of orthopedic surgery to remove pin out of left 1st digit Family History Family History Mother Patient's mother is Father Patient's father is Sibling Patient's sister is in good health Patient's brother is in good health Family history of coronary artery disease Breast cancer Stomach cancer Social History Social History Smoking status: Never smoker Alcohol intake: current Substance use: current Substance use type: marijuana Other substance usage details: occasional Last use: 2 weeks ago 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/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oncerns: Yes (Christianity) Agree to blood products: Yes Exam Const: General: healthy appearing and no acute distress Nutritional Appearance: well nourished Orientation/consciousness: patient oriented x3 Limitations: no limitations Eyes: Conjunctivae: conjunctivae normal Direct Ophthalmoscopy: no photophobia Neck: Neck: normal visual inspection Resp: Effort & Inspection: normal respiratory effort Cardio: Rate: regular rate Rhythm: regular rhythm Skin: General skin exam: normal color Neuro: General: patient oriented x3, moves all extremities, no meningeal signs and no focal motor deficits Speech: normal speech Extrem: General: normal to inspection Psych: Mental Status: mental status grossly normal Affect: Anxious affect present Attitude: cooperative Course Vital Signs Vital signs: Vital Signs Temperature 97.9 F 10/25/24 06:38 Pulse Rate 77 10/25/24 06:38 Respiratory Rate 18 10/25/24 06:38 Blood Pressure 151/77 H 10/25/24 06:38 Pulse Oximetry 100 10/25/24 06:38 Oxygen Delivery Room Air 10/25/24 06:38 Temperature 97.9 F 10/25/24 06:38 Pulse Rate 77 10/25/24 06:38 Respiratory Rate 18 10/25/24 06:38 Blood Pressure 151/77 H 10/25/24 06:38 Pulse Oximetry 100 10/25/24 06:38 Oxygen Delivery Room Air 10/25/24 06:38 Discharge Plan Discharge Clinical Impression: Anxiety, Medication refill Patient Disposition: Home, Self-Care Condition: Stable Instructions: Antibiotic Form, Anxiety (ED), Medicine Refill (ED) Patient Language: Kinyarwanda Prescriptions: New buspirone 15 mg tablet 15 mg PO BID Qty: 60 0RF lamotrigine 100 mg tablet 100 mg PO BID Qty: 60 0RF doxepin 10 mg capsule 10 mg PO HS PRN (Reason: insomnia) Qty: 30 0RF hydroxyzine pamoate 25 mg capsule 25 mg PO TID PRN (Reason: itching) Qty: 60 0RF aripiprazole 15 mg tablet 15 mg PO HS Qty: 30 0RF No Action doxepin 10 mg capsule lamotrigine 100 mg tablet buspirone 15 mg tablet hydroxyzine pamoate 25 mg capsule aripiprazole 15 mg tablet Follow-up/Referrals: UNKNOWN,DOCTOR [Primary Care Provider] -
[2024-10-25 07:17] VITALS: BP 135/92; PULSE 77; RESP 17; O2SAT 98
== END 2024-10-25 07:17 | disposition home or self-care (01) ==
PROVIDERS: Emergency Provider Emergency Medicine
DX: F41.9 Anxiety disorder, unspecified (principal); Z79.899 Other long term (current) drug therapy; Z76.0 Encounter for issue of repeat prescription
CPT/HCPCS: 99281

== ENCOUNTER 2025-04-25 03:25 | Emergency (ER) | payer BC, SELFPAY ==
--- NOTE | ~2025-04-25 | XR_ITS ---
Clinical Indication: Right shoulder pain PA and lateral views of the chest: Comparison: 10/21/2022 Findings: The lungs are clear, without evidence of focal consolidation or pleural effusion. Cardiome diastinal silhouette is within normal limits. Bones and soft tissues are unremarkable. Impression: Normal chest. Reviewed, dictated and finalized at [facility]. Impression: Normal chest.
[2025-04-25 03:25] VITALS: BP 136/88; PULSE 60; RESP 18; TEMP 36.3; O2SAT 97
--- OUTSIDE RECORDS SUMMARY | 2025-04-25 03:27 | XMS_ITS | Clinical Summary ---
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 30 tablet 3 Active meclizine (ANTIVERT) 25 MG tablet 1-2 tablets three times a day as needed for dizziness 20 tablet 3 Active Social History Tobacco Use Types Packs/Day Years Used Date Smoking Tobacco: Never Smokeless Tobacco: Never Tobacco Cessation:Counseling Given: No Alcohol Use Standard Drinks/Week Comments Not Currently 0 (1 standard drink = 0.6 oz pur e alcohol) Sex and Gender Information Value Date Recorded Sex Assigned at Not on file Legal Sex Male 7:24 PM CDT Gender Identity Not on file Sexual Orientation Not on file Last Filed Vital Signs Vital Sign Reading Time Taken Comments Blood Pressure 148/107 06/30/2023 9:15 AM CDT Pulse 43 06/30/2023 8:18 AM CDT Temperature 35.3 C (95.6 F) 06/30/2023 8:18 AM CDT Respiratory Rate 20 06/30/2023 8:18 AM CDT Oxygen Saturation 98% 06/30/2023 9:20 AM CDT Inhaled Oxygen Concentration - - Weight 90.7 kg (200 lb) 06/30/2023 8:18 AM CDT Height 175.3 cm (5' 9) 06/30/2023 8:18 AM CDT Body Mass Index 29.53 06/30/2023 8:18 AM CDT Plan of Treatment Health Maintenance Due Date Last Done Comments Colorectal Cancer Screening Colonoscopy (10 Years) 1964 Annual Physical 01/14/1967 Hepatitis C 01/14/1982 Pneumococcal Vaccine: 50+ Years (1 of 1 - PCV) 01/14/2014 Zoster Vaccines (1 of 2) 01/14/2014 COVID-19 Vaccine (3 - 2023-2 5 season) 2024 04/27/2021, 04/06/2021 DTaP, Tdap and Td Vaccines ( 2 - Td or Tdap) 03/22/2031 03/22/2021 RSV Immunization or 60+ Years (1 - 1-dose 75+ series) 01/14/2039 Meningococcal B Vaccine Aged Out No l onger eligible based on patient's age to complete this topic Meningococcal Vaccine Aged Out No mino allison eligible based on patient's age to complete this topic RSV Immunizations Under 20 Months Aged Out No longer eligible b ased on patient's age to complete this topic Insurance Care Teams Tuber Machine Cutter Relationship Specialty Start Date End Date None, Provider, PCP - General UNKNOWN PHYSICIAN SPECIALTY 06/30/23
--- OUTSIDE RECORDS SUMMARY | 2025-04-25 03:27 | XMS_ITS | Referral Summary ---
Author Organization [facility] [address] Address [address] [place] [address] 5th [place] [address] Care Team Providers Care Senior Cisco Network Engineer Name Role Phone Todd Mata MD Primary Care Provi melisa Allergies No known active allergies Medications No known medications Active Problems Problem Noted Date Diagnosed Date Routine adult health maintenance 09/01/2024 Hyperglycemia 09/01/2024 Screening for hyperlipidemia 09/01/2024 Elevated liver enzymes 09/01/2024 Class 1 obesity due to exces s calories without serious comorbidity with body mass index (BMI) of 30.0 to 30.9 in adult 09/01/2024 Bipolar affective disorder, currently depressed, mild 09/01/2024 Immunizations Immunization Administration Dates Next Due Influenza, Unspecified 07/24/2023(Deferred: Deana ent Refused) Tdap 03/22/2021 Social History Tobacco Use Types Packs/Day Years Used Date Smoking Tobacco: Never Passive Smoke Exposure: Never Smokeless Tobacco: Never Tobacco Cessation:Counseling Given: Not Answered PHQ-2 Answer Date Recorded PHQ-2 Total Score (If total score is 3 or more points, staff should administer the PHQ-9) 1 09/01/2024 Sex and Gender Information Value Date Recorded Sex Assigned at Not on file Legal Sex Male 12:11 PM CERTIFIED LACTATION EDUCATOR Gender Identity Not on file Sexual Orientation Not on file Last Filed Vital Signs Vital Sign Reading Time Taken Comments Blood Pressure 124/76 09/01/2024 3:48 PM CERTIFIED LACTATION EDUCATOR Pulse 80 09/01/2024 3:48 PM CERTIFIED LACTATION EDUCATOR Temperature 36.6 C (97.8 F) 09/01/2024 3:48 PM CERTIFIED LACTATION EDUCATOR Respiratory Rate - - Oxygen Saturation 96% 09/01/2024 3:48 PM CERTIFIED LACTATION EDUCATOR Inhaled Oxygen Concentration - - Weight 92.1 kg (203 lb) 09/01/2024 3:48 PM CERTIFIED LACTATION EDUCATOR Height 175.3 cm (5' 9) 09/01/2024 3:48 PM CERTIFIED LACTATION EDUCATOR Body Mass Index 29.98 09/01/2024 3:48 PM CERTIFIED LACTATION EDUCATOR Plan of Treatment Not on file Insurance [facility] Care Teams Senior Cisco Network Engineer Relationship Specialty Start Date End Date Todd Mata MD [id number] [facility] [address] [place] [address] PCP - General Family Practice 09/01/24
--- OUTSIDE RECORDS SUMMARY | 2025-04-25 03:27 | XMS_ITS | Clinical Summary ---
Author Organization [facility] [address] [place] [address] 5[address] [place] [address] Care Team Providers Care Electronic Parts Designer Name Role Phone Todd Mata MD Primary Care Provi melias Allergies No known active allergies Medications No [...] on file Legal Sex Male 12:11 PM ONLINE FACILITATOR Gender Identity Not on file Sexual Orientation Not on file Obstetrics History Last Filed Vital Signs Vital Sign Reading Time Taken Comments Blood Pressure 124/76 09/01/2024 3:48 PM ONLINE FACILITATOR Pulse 80 09/01/2024 3:48 PM ONLINE FACILITATOR Temperature 36.6 C (97.8 F) 09/01/2024 3:48 PM ONLINE FACILITATOR Respiratory Rate - - Oxygen Saturation 96% 09/01/2024 3:48 PM ONLINE FACILITATOR Inhaled Oxygen Concentration - - Weight 92.1 kg (203 lb) 09/01/2024 3:48 PM ONLINE FACILITATOR Height 175.3 cm (5' 9) 09/01/2024 3:48 PM ONLINE FACILITATOR Body Mass Index 29.98 09/01/2024 3:48 PM ONLINE FACILITATOR Plan of Treatment Health Maintenance Due Date Last Done Comments Colon Cancer Screening-Colonoscopy 1965 Hepatitis C Screening 1965 Prostate Cancer Screening-PSA 1965 Hepatitis B Screening 01/14/1982 Zoster Vaccine (1 of 2) 01/14/2014 Covid-19 Vaccine (3 - 2023-2 5 season) 2024 04/27/2021, 04/06/2021 Influenza Vaccine (Season Ended) 2025 Depression Screening 09/01/2025 09/01/2024 Regular Well Visit/Exam 18-64 09/01/2025 09/01/2024 DTaP/Tdap/Td Vaccine (2 - Td or Tdap) 03/22/2031 03/22/2021 Pneumococcal vaccine <65 Aged Out No longer eligible based on patient's age to complete this topic Insurance [facility] [employer] Care Teams Electronic Parts Designer Relationship Specialty Start Date End Date Todd Mata MD [id number] [facility] [address] [place] [address] PCP - General Family Practice 09/01/24
--- OUTSIDE RECORDS SUMMARY | 2025-04-25 03:27 | XMS_ITS | Continuity of Care Document ---
Author Organization [facility] Address [address] [place] [address] [address] [place] [address] Phone Care Team Providers Care Core Placer Name Role Phone Dubon OD, Crescencio Unavailable Unavailable Procedures Procedure Date Office/outpatient Visit, Est Eye Exam Established Pt Advance Directives Directive Yes / No Effective Date File Name No Information Encounters Encounter Description Practice Location Reason(s) For Visit Diagnoses Date Provider Providers Copied on Encounter Office/outpat ient Visit, Est [facility], [address] [place] [address] [address], [place], [place], [id number], [place] tel:[phone] SEC [facility] No Information 8-201 0 Dubon OD Crescencio. [address] [facility] [address] , [address], [place], [address], [place]. tel:[phone] [facility], [address] [place] [address] [address], [place], [place], [address], [place] tel:[phone] [facility] No Information 1-201 0 Dubon OD Crescencio. [address] , [address], [place], [address], [place]. tel:[phone] Family History Family Member Type Diagnosis Age At Onset No Information Payers Payer name Insurance type Covered democrat ID Authoriza tion(s) Medicaid [facility] [id number] Social History Type Description Quantity Date Captured Comments Sex Male Smoking Status No Information Chief Complaint And Reason For Visit No Information Reason For Referral Reason For Referral No Information History Of Present Illness Encounter Date Complaint History Of Prese nt Illness No Information Functional Status Date Functional Assessmen t No Information Instructions Date Instruction Additional Infor mation No Information Assessments Type Assessment Date No Information Patient Care Teams Name Effective Dates (start - stop) Status Members No Information
--- OUTSIDE RECORDS SUMMARY | 2025-04-25 03:27 | XMS_ITS | Continuity of Care Document ---
Author Organization [facility] Address [address] [place] [address] [place] [address] Phone Care Team Providers Care Web Content Producer Name Role Phone Jc Pinedo MD Unavailable Unavailable Allergies, Adverse Reactions, Alerts Substance Reaction Status Criticality No Known Allergies Active No Inform ation Medications Medication Instructions Dosage Effective Dates (start - stop) Status Comments ranitidine 300 mg capsule take 1 capsule by oral route every day at bedtime - Active Zocor 20 mg tablet take 1 tablet by ora l route every day in the evening 20 MG - Active Effexor XR 75 mg capsule,extended release take 1 capsule by oral route every day with food 75 MG - Active Effexor XR 150 mg capsule,extended release take 1 capsule by oral route every day 150 MG - Active buspirone 15 mg tablet take 1 tablet by oral route 2 times every day 15 MG - Active trazodone 150 mg tablet take 1 tablet by oral route every day at bedtime - Active Procedures Procedure Date OFFICE/OUTPATIENT VISIT, EST PREV VISIT, EST, AGE 40-64 OFFICE/OUTPATIENT VISIT, EST OFFICE/OUTPATIENT VISIT, EST OFFICE/OUTPATIENT VISIT, EST OFFICE/OUTPATIENT VISIT, EST OFFICE/OUTPATIENT VISIT, EST PREV VISIT, NEW, AGE 40-64 OFFICE/OUTPATIENT VISIT, NEW Advance Directives Directive Yes / No Effective Date File Name No Information Encounters Encounter Description Practice Location Reason(s) For Visit Diagnoses Date Provider Providers Copied on Encounter [facility], [address], [place], [place], [address], [place] [phone] [facility] No Information 0 Khris Greene. [address], [place], [place], [address] , [place]. [phone] Referring Provider: Jc Pinedo, [address], [place], [place], [address]. tel:[phone] OFFICE/OUTPA TIENT VISIT, EST [facility], [address], [place], [place], [address], [place] tel:[phone] [facility] abd pain1 (chief complaint) GERD1 (chief complaint) fatty liver1 (chief complaint) protein1 (chief complaint) HyperlipidemiaUmbil ical herniaHyperprolacti nemiaAbnormality of plasma proteinGERD w/o esophagitisFatty liver 9 Khris Greene. [address], [place], [place], [address] , [place]. tel:[phone] Referring Provider: Lisa Becerra [address], [place], [place], [address]. tel:[phone] PREV VISIT, EST, AGE 40-64 [facility], [address], [place], [place], [address], [place] tel:[phone] [facility] Physical (chief complaint) Encounter for general adult medical exam w abnormal findingsHyperlipide miaUmbilical herniaGERD w/o esophagitisFatigue 9 Khris Greene. [address], [place], [place], [address] , [place]. [phone] Referring Provider: Lisa Becerra [address], [place], [place], [address]. tel:[phone] OFFICE/OUTPA TIENT VISIT, EST [facility], [address], [place], [place], [address], [place] tel:[phone] [facility] umbilical hernia1 (chief complaint) GERD1 (chief complaint) HLP (chief complaint) Body mass index (BMI) 30.0-30.9, adultAbdominal painHyperlipidemiaU mbilical hernia 8 Khris Greene. [address], [place], [place], [address] , [place]. tel:[phone] Referring Provider: Lisa Becerra [address], [place], [place], [address]. tel:[phone] OFFICE/OUTPA TIENT VISIT, [facility], [address], [place], [place], [address], [place] tel:[phone] [facility] abd pain1 (chief complaint) HLP (chief complaint) fatigue1 (chief complaint) HyperlipidemiaUmbil ical herniaAbdominal painFatigue 8 Khris Longo [address], [place], [place], [address] , [place]. [phone] Referring Provider: Lisa Becerra [address], [place], [place], [address]. tel:[phone] OFFICE/OUTPA TIENT VISIT, [facility], [address], [place], [place], [address], [place] tel:[phone] [facility] abd pain1 (chief complaint) fatigue1 (chief complaint) HLP (chief complaint) FatigueGERD w/o esophagitisHyperlip idemiaAbdominal pain 8 Khris Longo [address], [place], [place], [address] , [place]. tel:[phone] Referring Provider: Lisa Becerra [address], [place], [place], [address]. tel:[phone] OFFICE/OUTPA TIENT VISIT, [facility], [address], [place], [place], [address], [place] tel:[phone] [facility] GERD1 (chief complaint) albumin1 (chief complaint) vitamin D (chief complaint) HLP (chief complaint) fatigue1 (chief complaint) HyperlipidemiaOther specified abnormalities of plasma proteinsGERD w/o esophagitisFatigue Khris Greene. [address], [place], [place], [address] , [place]. [phone] Referring Provider: Lisa Becerra [address], [place], [place], [address]. tel:[phone] PREV VISIT, NEW, AGE 40-[address] [facility], [address], [place], [place], [address], [place] tel:[phone] [facility] physical (chief complaint) Encounter for general adult medical exam w abnormal findingsGeneralized Anxiety DisorderChronic gastric ulcer without hemorrhageFatigue 7 Khris Greene. [address], [place], [place], [address] , [place]. [phone] Referring Provider: Lisa Becerra [address] [facility] [place], [address]. tel:[phone] Family History Family Member Type Diagnosis Age At Onset Sister Problem (finding) stomach and breast CA Mother Problem (finding) of bowel obstruction (Cause Of ) 62 Sister Problem (finding) Alive and well Father Problem (finding) Father Problem (finding) of old age 84 Brother Problem (finding) Coronary artery disease 55 Brother Problem (finding) Alive and well Payers Payer name Insurance type Covered libertarian ID Authoriza tion(s) No Information Social History Type Description Quantity Date Captured Comments Alcohol Use Details Unknown Caffeine Use Details Unknown Tobacco Use Status No Information Smoking Status No Information Sex Male Chief Complaint And Reason For Visit No Information Plan Of Treatment Date Type Action Status Goal Special diet education compl eted Goal Special diet education compl eted Goal Special diet education compl eted Referral Ordered: Surgery (related to Umbilical hernia) ordered Referral Ordered: Referrals: Surgery. Evaluate and treat ordered Referral Ordered: US EXAM, ABDOM, COMPLETE ordered Referral Ordered: Jonathan Block (related to Umbilical hernia) ordered Referral Referred To: UmairJontahan [address] [place], [place], [address] Ordered: Referrals: Jonathan Block. Evaluate and treat ordered Referral Ordered: CT ABDOMEN&PELVIS W/CONTRAST ordered Referral Ordered: SLEEP STUDY, ATTENDED ordered Referral Ordered: Gastroenterology (related to Chronic gastric ulcer without hemorrhage) ordered Referral Ordered: Referrals: Gastroenterology. Evaluate and treat ordered History Of Present Illness Encounter Date Complaint History Of Prese nt Illness GERD1 Pt has daily SALVATORE D. pt had gastritis on EGD last year Pt has heartburn daily. Pt has been taking otc meds daily. fatty liver1 Pt has fatty williams er. Pt denies any abd pain protein1 Pt has high prot ein and high albumin. I still do not have lab from psychiatrist I called several times today but not sure if they can fax over lab in time abd pain1 pt c/o intermitt ent sharp pain right periumbilical area for one year pt had negative EGD and colonoscopy last year. Pt denies any relationship to food. Pt denies any nausea, vomiting, diarrhea Pt denies any blood in stool. Pt states that he does not know any trigger factor. Pt states that the sharp pain occurs randomly and last several mins and goes away. Pt denies any acute pain Physical Pt needs annual physical, pt has HLP Pt was taking lipitor last year but he did not follow through and he did not do lab either, pt had lab done by his psychiatrist and showed high cholesterol. pt was told to come to see me. Pt also has anxiety an depression Pt takes effexor, buspar and trazodone. Pt is on something else but he does not know the name of it. Pt has GERD Pt takes OTC meds daily but he is not sure what he is taking he denies any symptoms He know it is not PPIs. Pt also has umbilical hernia. Pt has vague periumbilical pain chronically. pt feels mild fatigue. He does snore slightly pt never did the sleep study umbilical hernia1 Pt has vague r ight side and periumbilical pain Pt denies any pain recently. Pt had the Ct approved but he has not done it yet. Pt also missed his surgery appointment Pt denies any nausea, vomiting, diarrhea or constipation GERD1 Pt has GERD. pt has gastritis. Pt is taking omeprazole and he denies any further abd pain recently. pt also is off all NSAID HLP Pt has HLP Pt ta kes lipitor. Pt denies any myalgia. Pt has not done the lab yet. abd pain1 Pt has chronic p eriumblical abd pain, sharp in nature for the past one year. Pt states taht the pain occurs 3-4 per week and is random. Pt had negative colonosocpy and EGD and HIDA and also ultrasound of abdomen. Pt denies any nausea, vomiting, diarrhea Pt takes omeprazole for GERD which is working ok HLP Pt has HLP ,Pt h as been taking lipitor .Pt denies any myalgia. Pt has mild high protein and albumin in his lab lab work. fatigue1 Pt has mild fati lonnie. Pt denies any sob Pt has apnea symptoms Pt has not done sleep study fatigue1 Pt has chornic f atigue and also he snores. Pt has not done set up sleep study yet HLP Pt has HLP. Pt t akes lipitor. Pt denie sany myalgia. abd pain1 Pt c/o chronic a bdominal pain around periumblical area for one year Pt has history of gastric ulcer Pt had EGD done which did not show any ulcer per pt. Pt will do colonoscopy soon. Pt states that he still has abdominal pain despite taking omerpazole for the past month. Pt states that omeprazole does help with GERd but not with pain. Pt c/o dull ache and not related to food. pt denies any nausea, vomiting Pt has nonbloody diarrhea. Pt denies any acute abdominal pain vitamin D Pt has low D HLP Pt has high chol esterol and TG Pt does eat a lot of meat. Pt does not eat any vegetable fatigue1 Pt feels chronic fatigue. pt does snore and feels tired in the morning and throughout the day. pt denies any sob or chest pain GERD1 Pt has chronic G ERd pt has gastic ulcer Pt takes omeprazole and doing ok. Pt just seen GI and will do EGD and colonosocpy soon albumin1 Pt has high albu min and protein in serum. physical Pt needs annual physical. pt has chronic anxiety and depression and bipolar and insomnia. Pt sees psychiatrist and he takes trazodone, buspar and depakote and effexor. Pt denies any suicidal or homicidal thought. Pt denies any crying spells. Pt states that he has history of gastric ulcer with chronic GERD Pt had EGD many years ago. Pt takes some TAMAR prevacid. Pt denies any nausea, vomiting, diarrhea, blood stool. Pt has to take OTC prevacid daily. Pt c/o intermittent abdmoinal cramp, with and without food. Pt does not take NSAID. Pt feels fatigue all the time. Pt snores a little per pt. Pt feels tired when waking up and all day. Instructions Date Instruction Additional Infor mation Special diet education Related t o Body mass index (BMI) 30.0-30.9, adult Follow a low sodium diet. Relate d to Hyperlipidemia Weight management Related to Enc ounter for general adult medical exam w abnormal findings Increase physical activity Relat ed to Encounter for general adult medical exam w abnormal findings Special diet education Related t o Body mass index (BMI) 29.0-29.9, adult Weight management Related to Abd ominal pain Increase physical activity Relat ed to Abdominal pain Special diet education Related t o Body mass index (BMI) 30.0-30.9, adult Prescribed Diet Educ ation/Lifestyle Education Regarding Diet Related to Dietary Surveillance and Counseling Prescribed Activity and Exercise Education Related to Dietary Surveillance and Counseling Prescribed Diet Educ ation/Lifestyle Education Regarding Diet Related to Dietary Surveillance and Counseling Prescribed Activity and Exercise Education Related to Dietary Surveillance and Counseling Follow a low sodium diet. Relate d to Hyperlipidemia Increase activity. Related to Hy perlipidemia Prescribed Diet Educ ation/Lifestyle Education Regarding Diet Related to Dietary Surveillance and Counseling Prescribed Activity and Exercise Education Related to Dietary Surveillance and Counseling Increase physical activity Relat ed to Encounter for general adult medical exam w abnormal findings Quit smoking Related to Encou nter for general adult medical exam w abnormal findings Assessments Type Assessment Date No Information
--- NOTE | 2025-04-25 03:32 | ECG_ITS ---
Test Date: 2025-04-25 03:39:00 Measurements Intervals [place] Rate: 59 P: 34 AK: 167 QRS: -7 QRSD: 110 T: 30 QT: 432 QTc: 428 Interpretive Statements SINUS BRADYCARDIA No previous ECG available for comparison Electronically Signed On 04-25-2025 15:56:12 CDT by Rick Sweeney M.D.
--- NOTE | 2025-04-25 03:36 | ED_ITS ---
HPI - Extremity Problem General Chief complaint: Extremity Problem,Nontraumatic Stated complaint: RIGHT SHOULDER PAIN, ANXIETY Time Seen by Provider: 04/25/25 03:34 Source: patient Mode of arrival: ambulatory Limitations: no limitations History of Present Illness HPI Narrative: patient is a 60-year-old male with a right shoulder blade /back right upper pain with movement of the right upper extremity. Patient has been having this for the past 2 weeks. Pain is specific when he moves and gets relief in some positions as well. No chest pain or shortness of breath per se. No nausea vomiting or diarrhea. No abdominal pain. He does get a little queasy when the pain gets significant. No particular injury. MD Complaint: extremity pain ( Right upper back shoulder blade) Onset (ago): week(s) (2) Pain Consistency: intermittent Location: right and upper extremity Severity scale (1-10): 5 Quality: sharp Radiation: other ( right paracervical spine) Relieving factors: movement ( certain positions of the right upper extremity) Exacerbating factors: range of motion and palpation Associated symptoms: denies other symptoms Context: other ( patient is having right upper extremity/posterior right upper back / shoulder blade right pain with movement and palpation of the area) Related Data Home Medications ?Medication ?Instructions ?Recorded ?Confirmed ?Last Taken ?Type aripiprazole 15 mg tablet mg 10/25/24 Unknown History buspirone 15 mg tablet mg 10/25/24 Unknown History doxepin 10 mg capsule mg 10/25/24 Unknown History hydroxyzine pamoate 25 mg capsule mg 10/25/24 Unknown History lamotrigine 100 mg tablet mg 10/25/24 Unknown History Allergies Allergy/AdvReac Type Severity Reaction Status Date / Time No Known Allergies Allergy Verified 10/25/24 06:47 Review of Systems 2 Review of Systems: All systems reviewed & are unremarkable except as noted in HPI and below Constitutional: Constitutional: Reports no additional constitutional complaints Eyes: Eyes: Reports no additional eye complaints ENT: Reports system reviewed and no additional complaints, except as documented Cardiovascular: Cardiovascular: Reports no additional cardiovascular complaints Respiratory: Respiratory: Reports no additional respiratory complaints Gastrointestinal: Gastrointestinal: Reports no additional gastrointestinal complaints Genitourinary: Genitourinary: Reports no additional male genitourinary complaints Musculoskeletal: Musculoskeletal: Reports no additional musculoskeletal complaints Integumentary/Breasts: Skin/Breast: Reports system reviewed and no additional complaints, except as docu Neurologic: Reports system reviewed and no additional complaints, except as documented Psychiatric: Psychiatric: Reports no additional psychiatric complaints Endocrine: Endocrine: Reports no additional endocrine complaints Hematologic/Lymphatic: Hematologic/Lymphatic: Reports no additional hematologic/lymphatic complaints Allergic/Immunologic: Allergic/Immunologic: Reports no additional allergic/immunologic complaints [facility] Past Medical History Medical History Diverticulitis large intestine w/o perforation or abscess w/o bleeding Diverticulosis Left ureteral stone Arthritis Right kidney mass Left renal stone Hepatic steatosis Umbilical hernia without obstruction and without gangrene GERD (gastroesophageal reflux disease) Depression Anxiety Hyperlipidemia Surgical History Surgical History History of orthopedic surgery to remove pin out of left 1st digit History of eye surgery to remove metal in eye H/O umbilical hernia repair Family History Family History Mother Patient's mother is Father Patient's father is Sibling Patient's sister is in good health Patient's brother is in good health Family history of coronary artery disease Breast cancer Stomach cancer Social History Social History Smoking status: Never smoker Alcohol intake: current Substance use: current Substance use type: marijuana Other substance usage details: occasional Last use: 2 weeks ago Occupation/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oncerns: Yes (Confucianist) Agree to blood products: Yes Exam 2 Const: General: healthy appearing Nutritional Appearance: well nourished Orientation/consciousness: patient oriented x3 Limitations: no limitations HENMT: Head: normal to inspection Ears: external ears normal F andrew/Nose/Sinus: Normal external nose present Eyes: Conjunctivae: conjunctivae normal Pupils: Equal, round and reactive pupils present EOM: EOMs intact bilaterally Neck: Neck: normal visual inspection Chest: Chest palpation & inspection: normal inspection of the chest Resp: Effort & Inspection: normal respiratory effort and not labored A uscultation: clear to auscultation bilaterally and no crackles Cardio: Rate: regular rate Rhythm: regular rhythm Heart sounds: no murmurs GI: Inspection: non-distended GI Palp: Yes Soft to palpation and No Tenderness to palpation present (GI) Auscultation: normal bowel sounds : General: Yes bladder normal to palpation Back/Spine/Pelvis: Back: no CVA tenderness Skin: General skin exam: normal color Rashes: no rashes Wounds: no wounds Neuro: General: patient oriented x3, moves all extremities, no meningeal signs, no focal motor deficits and CN's II-XI intact bilaterally Extrem: General: abnormal to inspection, no clubbing, cyanosis or edema, no pedal edema and edema Other: right upper back area of concern is tender to palpation around mid scapula edge medially on the back; range of motion causes same pain Psych: Mental Status: mental status grossly normal Affect: normal affect Attitude: cooperative Course Vital Signs Vital signs: Vital Signs Temperature 36.3 C L 04/25/25 03:25 Pulse Rate 60 04/25/25 03:25 Respiratory Rate 18 04/25/25 03:25 Blood Pressure 136/88 04/25/25 03:25 Pulse Oximetry 97 04/25/25 03:25 Oxygen Delivery Room Air 04/25/25 03:25 Temperature 36.3 C L 04/25/25 03:25 Pulse Rate 60 04/25/25 03:25 Respiratory Rate 18 04/25/25 03:25 Blood Pressure 136/88 04/25/25 03:25 Pulse Oximetry 97 04/25/25 03:25 Oxygen Delivery Room Air 04/25/25 03:25 MDM - Extremity (Nontraumatic) MDM Narrative Medical decision making narrative: patient is a 60-year-old male with a right upper back pain for the past couple weeks. we will do a cardiac rule out for safety. We will do prednisone and Norflex trial. Lab Data Attestation: I reviewed the patient's lab results. 04/25/25 04:04 04/25/25 04:04 Labs: Lab Results 04/25/25 04/25/25 Range/Units 04:04 04:05 WBC 6.4 (4.8-10.8) K/mm3 RBC 4.77 (4.70-6.10) M/mm3 Hgb 14.7 (14.0-18.0) g/dL Hct 42.7 (40.0-54.0) % MCV 89.5 (78.0-102.0) fL MCH 30.8 (27.0-31.0) pg MCHC 34.4 (32-36) g/dL RDW 12.0 (11.6-14.4) % Plt Count 164 (150-420) K/mm3 MPV 8.2 L (8.7-11.0) fl Immature Gran % (Auto) 0.3 H (0.0-0.0) % Neut % (Auto) 49.6 L (50.0-70.0) % Lymph % (Auto) 38.2 (18.0-42.0) % Woods % (Auto) 7.0 (2.0-11.0) % Eos % (Auto) 3.8 (1.0-6.0) % Baso % (Auto) 1.1 H (0.0-1.0) % Lymph # (Auto) 2.44 (1.10-4.50) K/mm3 Woods # (Auto) 0.45 (0.10-0.90) K/mm3 Eos # (Auto) 0.24 (0.02-0.50) K/mm3 Baso # (Auto) 0.07 (0.00-0.10) K/mm3 Abs Immat Gran (auto) 0.02 H (0.00-0.00) K/mm3 Absolute Neuts (auto) 3.17 (1.70-7.20) K/mm3 Absolute Nucleated RBC 0.00 (0.00-0.00) K/mm3 Nucleated RBC % 0.0 (0-0.0) % PT 10.9 (9.50-12.1) Seconds INR 1.0 APTT 24.3 (23.9-30.70) Sec D-Dimer 0.19 (0.19-0.50) mg/L Sodium 139 (137-145) mmol/L Potassium 3.4 (3.4-5.0) mmol/L Chloride 107 (98-107) mmol/L Carbon Dioxide 23 (22-30) mmol/L Anion Gap 9 (4-12) mmol/L BUN 13 D (9-20) mg/dL Creatinine 0.81 (0.7-1.3) mg/dL Estim Creat Clear Calc 83 ml/min Estimated GFR > 60 (59 - ) Glucose 121 H (65-110) mg/dL Calculated Osmolality 289 (285-295) mOsm/kg Calcium 9.0 (8.4-10.2) mg/dL Total Bilirubin 0.8 (0.2-1.3) mg/dL AST 69 H (17-59) U/L ALT 78 H (6-50) U/L Alkaline Phosphatase 61 (38-126) U/L Troponin I < 0.012 (0.000-0.034) ng/mL Total Protein 7.4 (6.3-8.2) g/dL Albumin 4.3 (3.5-5.1) g/dL Lipase 88 (23-300) U/L Imaging Data Attestation: I personally reviewed and interpreted this imaging study as follows: My impression: Chest x-ray with my reading shows normal and no acute process seen (pending final read) Radiologist's impression: chest x-ray shows negative for acute process ECG Data EKG #1: Attestation EKG: I personally reviewed and interpreted this ECG as follows: ECG completion date: 04/25/25 ECG completion time: 03:55 EKG Interpretation: normal rate, sinus rhythm, no ectopy, non-specific ST changes, normal QRS, normal QT and left axis Discharge Plan Discharge Clinical Impression: Musculoskeletal back pain Patient Disposition: Home Condition: Improved Instructions: Antibiotic Form, Musculoskeletal Pain (ED) Additional Instructions: please follow-up with the primary doctor in the next week. You may use heat or ice to the area of pain. You may consider massage to the area. Patient Language: Bulgarian Prescriptions: New prednisone 20 mg tablet 40 mg PO DAILY 3 Days Qty: 6 0RF orphenadrine citrate 100 mg tablet extended release 100 mg PO BID PRN (Reason: pain) Qty: 20 0RF No Action doxepin 10 mg capsule lamotrigine 100 mg tablet buspirone 15 mg tablet hydroxyzine pamoate 25 mg capsule aripiprazole 15 mg tablet buspirone 15 mg tablet 15 mg PO BID Qty: 60 0RF lamotrigine 100 mg tablet 100 mg PO BID Qty: 60 0RF doxepin 10 mg capsule 10 mg PO HS PRN (Reason: insomnia) Qty: 30 0RF hydroxyzine pamoate 25 mg capsule 25 mg PO TID PRN (Reason: itching) Qty: 60 0RF aripiprazole 15 mg tablet 15 mg PO HS Qty: 30 0RF Follow-up/Referrals: UNKNOWN,DOCTOR [Primary Care Provider] - Luis Alberto Rodrigues MD [Physician] - Stand Alone Forms: Work/School Release IP Time of Disposition: 04:55
--- OUTSIDE RECORDS SUMMARY | 2025-04-25 03:49 | XMS_ITS | Clinical Summary ---
Author Organization [facility] Address [address] [place] [address] Care Team Providers Care Records Management Assistant Name Role Phone None, Provider MD Primary [...] to complete this topic Insurance Care Teams Records Management Assistant Relationship Specialty Start Date End Date None, Provider, PCP - General UNKNOWN PHYSICIAN SPECIALTY 06/30/23
--- OUTSIDE RECORDS SUMMARY | 2025-04-25 03:49 | XMS_ITS | Continuity of Care Document ---
Author Organization [facility] Address [address] [place] [address] [place] [address] Phone Care Team Providers Care Electrical Controls Engineer Name Role Phone Jc Pinedo MD Unavailable Unavailable Allergies, Adverse Reactions, Alerts Substance Reaction Status Criticality No Known Allergies Active No Inform ation Medications Medication Instructions Dosage Effective Dates (start - stop) Status Comments Zocor 20 mg tablet take 1 tablet by ora l route every day in the evening 20 MG - Active ranitidine 300 mg capsule take 1 capsule by oral route every day at bedtime - Active trazodone 150 mg tablet take 1 tablet by oral route every day at bedtime - Active buspirone 15 mg tablet take 1 tablet by oral route 2 times every day 15 MG - Active Effexor XR 150 mg capsule,extended release take 1 capsule by oral route every day 150 MG - Active Effexor XR 75 mg capsule,extended release take 1 capsule by oral route every day with food 75 MG - Active Procedures Procedure Date OFFICE/OUTPATIENT VISIT, EST PREV VISIT, EST, AGE 40-64 OFFICE/OUTPATIENT VISIT, EST OFFICE/OUTPATIENT VISIT, EST OFFICE/OUTPATIENT VISIT, EST OFFICE/OUTPATIENT VISIT, EST OFFICE/OUTPATIENT VISIT, EST PREV VISIT, NEW, AGE 40-64 OFFICE/OUTPATIENT VISIT, NEW Advance Directives Directive Yes / No Effective Date File Name No Information Encounters Encounter Description Practice Location Reason(s) For Visit Diagnoses Date Provider Providers Copied on Encounter [facility], [address], [place], [place], [address], [place] [phone] [facility] Medicine No Information 0 Khris Greene. [address], [place], [place], [address] , [place]. [phone] Referring Provider: Jc Pinedo, [address], [place], [place], [address]. tel:[phone] OFFICE/OUTPA TIENT VISIT, EST [facility], [address], [place], [place], [address], [place] tel:[phone] [facility] Medicine abd pain1 (chief complaint) GERD1 (chief complaint) fatty liver1 (chief complaint) protein1 (chief complaint) HyperlipidemiaUmbil ical herniaHyperprolacti nemiaAbnormality of plasma proteinGERD w/o esophagitisFatty liver 9 Khris Greene. [address], [place], [place], [address] , [place]. tel:[phone] Referring Provider: Lisa Bec[address], [place], [place], [address]. tel:[phone] PREV VISIT, EST, AGE 40-64 [facility], [address], [place], [place], [address], [place] tel:[phone] [facility] Physical (chief complaint) Encounter for general adult medical exam w abnormal findingsHyperlipide miaUmbilical herniaGERD w/o esophagitisFatigue 9 Khris Greene. [address], [place], [place], [address] , [place]. tel:[phone] Referring Provider: Lisa Becerra [address], [place], [place], [address]. tel:[phone] OFFICE/OUTPA TIENT VISIT, EST [facility], [address], [place], [place], [address], [place] tel:[phone] [facility] umbilical hernia1 (chief complaint) GERD1 (chief complaint) HLP (chief complaint) Body mass index (BMI) 30.0-30.9, adultAbdominal painHyperlipidemiaU mbilical hernia 8 Khris Greene. [address], [place], [place], [address] , [place]. tel:[phone] Referring Provider: Lisa Becerra [address], [place], [place], [address]. tel:[phone] OFFICE/OUTPA TIENT VISIT, [facility], [address], [place], [place], [address], [place] tel:[phone] [facility] abd pain1 (chief complaint) HLP (chief complaint) fatigue1 (chief complaint) HyperlipidemiaUmbil ical herniaAbdominal painFatigue 8 Khris Longo [address], [place], [place], [address] , [place]. [phone] Referring Provider: Lisa Becerra [address], [place], [place], [address]. tel:[phone] OFFICE/OUTPA TIENT VISIT, [facility], [address], [place], [place], [address], [place] tel:[phone] [facility] abd pain1 (chief complaint) fatigue1 (chief complaint) HLP (chief complaint) FatigueGERD w/o esophagitisHyperlip idemiaAbdominal pain 8 Khris Longo [address], [place], [place], [address] , [place]. tel:[phone] Referring Provider: Lisa Bec[address], [place], [place], [address]. tel:[phone] OFFICE/OUTPA TIENT VISIT, [facility], [address], [place], [place], [address], [place] tel:[phone] [facility] GERD1 (chief complaint) albumin1 (chief complaint) vitamin D (chief complaint) HLP (chief complaint) fatigue1 (chief complaint) HyperlipidemiaOther specified abnormalities of plasma proteinsGERD w/o esophagitisFatigue Khris Greene. [address], [place], [place], [address] , [place]. [phone] Referring Provider: Lisa Becerra [address], [place], [place], [address]. tel:[phone] PREV VISIT, NEW, AGE 40-64 [facility], [address], [place], [place], [address], [place] tel:[phone] [facility] physical (chief complaint) Encounter for general adult medical exam w abnormal findingsGeneralized Anxiety DisorderChronic gastric ulcer without hemorrhageFatigue 7 Khris Greene. [address], [place], [place], [address] , [place]. [phone] Referring Provider: Lisa Becerra [address] [facility] [place], [address]. tel:[phone] Family History Family Member Type Diagnosis Age At Onset Sister Problem (finding) stomach and breast CA Mother Problem (finding) of bowel obstruction (Cause Of ) 62 Sister Problem (finding) Alive and well Father Problem (finding) Father Problem (finding) of old age 84 Brother Problem (finding) Coronary artery disease 55 Brother Problem (finding) Alive and well Payers Payer name Insurance type Covered republican ID Authoriza tion(s) No Information Social History [...] to Umbilical hernia) ordered Referral Referred To: UmairJonathan [address] [place], [place], [address] Ordered: Referrals: Jonathan Block. Evaluate and treat [...] low sodium diet. Relate d to Hyperlipidemia Special diet education Related t o Body mass index (BMI) 29.0-29.9, adult Increase physical activity Relat ed to Encounter for general adult medical exam w abnormal findings Weight management Related to Enc ounter for general adult medical exam w abnormal findings Special diet education Related t o Body mass index (BMI) 30.0-30.9, adult Increase physical activity Relat ed to Abdominal pain Weight management Related to Abd ominal pain Prescribed Activity and Exercise Education Related to [...] Diet Related to Dietary Surveillance and Counseling Increase activity. Related to Hy perlipidemia Follow a low sodium diet. Relate d to Hyperlipidemia Increase physical activity Relat ed to Encounter for general adult medical exam w abnormal findings Quit smoking Related to Encou nter for general adult medical exam w abnormal findings Assessments Type Assessment Date No Information
--- OUTSIDE RECORDS SUMMARY | 2025-04-25 03:49 | XMS_ITS | Referral Summary ---
Author Organization [facility] [address] Address [address] [place] [address] 5th [place] [address] Care Team Providers Care Door Furring Installer Name Role Phone Todd Mata MD Primary [...] on file Legal Sex Male 12:11 PM WOOD MODEL BUILDER Gender Identity Not on file Sexual Orientation Not on file Last Filed Vital Signs Vital Sign Reading Time Taken Comments Blood Pressure 124/76 09/01/2024 3:48 PM WOOD MODEL BUILDER Pulse 80 09/01/2024 3:48 PM WOOD MODEL BUILDER Temperature 36.6 C (97.8 F) 09/01/2024 3:48 PM WOOD MODEL BUILDER Respiratory Rate - - Oxygen Saturation 96% 09/01/2024 3:48 PM WOOD MODEL BUILDER Inhaled Oxygen Concentration - - Weight 92.1 kg (203 lb) 09/01/2024 3:48 PM WOOD MODEL BUILDER Height 175.3 cm (5' 9) 09/01/2024 3:48 PM WOOD MODEL BUILDER Body Mass Index 29.98 09/01/2024 3:48 PM WOOD MODEL BUILDER Plan of Treatment Not on file Insurance [facility] Care Teams Door Furring Installer Relationship Specialty Start Date End Date Todd Mata MD [id number] [facility] [address] [place] [address] PCP - General Family Practice 09/01/24
--- OUTSIDE RECORDS SUMMARY | 2025-04-25 03:49 | XMS_ITS | Continuity of Care Document ---
Author Organization [facility] Address [address] [place] [address] [address] [place] [address] Phone Care Team Providers Care Vacuum System Tester Name Role Phone Dubon OD, Crescencio Unavailable Unavailable Procedures Procedure Date Office/outpatient Visit, Est Eye Exam Established Pt Advance Directives Directive Yes / No Effective Date File Name No Information Encounters Encounter Description Practice Location Reason(s) For Visit Diagnoses Date Provider Providers Copied on Encounter Office/outpat ient Visit, Est [facility], [address] [place] [address] [address], [place], [place], [address], [place] tel:[phone] [facility] No Information 8-201 0 Dubon OD Crescencio. [address] [facility] [address] , [address], [place], [address], [place]. tel:[phone] [facility], [address] [place] [address] [address], [place], [place], [address], [place] tel:[phone] [facility] [place] No Information 1-201 0 Dubon OD Crescencio. [address] [facility] , [address], [place], [address], [place]. tel:[phone] Family History Family Member Type Diagnosis Age At Onset No Information Payers Payer name Insurance type Covered alliance party ID Authoriza tion(s) Medicaid [facility] [id number] Social History Type Description Quantity Date Captured [...]
--- OUTSIDE RECORDS SUMMARY | 2025-04-25 03:49 | XMS_ITS | Clinical Summary ---
Author Organization [facility] [address] Address [address] [place] [address] 5th [place] [address] Care Team Providers Care Medical Receptionist Biller Name Role Phone Todd Mata MD Primary [...] on file Legal Sex Male 12:11 PM REHABILITATOR Gender Identity Not on file Sexual Orientation Not on file Obstetrics History Last Filed Vital Signs Vital Sign Reading Time Taken Comments Blood Pressure 124/76 09/01/2024 3:48 PM REHABILITATOR Pulse 80 09/01/2024 3:48 PM REHABILITATOR Temperature 36.6 C (97.8 F) 09/01/2024 3:48 PM REHABILITATOR Respiratory Rate - - Oxygen Saturation 96% 09/01/2024 3:48 PM REHABILITATOR Inhaled Oxygen Concentration - - Weight 92.1 kg (203 lb) 09/01/2024 3:48 PM REHABILITATOR Height 175.3 cm (5' 9) 09/01/2024 3:48 PM REHABILITATOR Body Mass Index 29.98 09/01/2024 3:48 PM REHABILITATOR Plan of Treatment Health Maintenance Due Date [...] patient's age to complete this topic Insurance [facility] [employer] Care Teams Medical Receptionist Biller Relationship Specialty Start Date End Date Todd Mata MD [address] [facility] [address] [place] [address] PCP - General Family Practice 09/01/24
[2025-04-25] MEDS: ORPHENADRINE CITRATE 30 MG/ML 2 ML VIAL 60 MG IM (04:03)
[2025-04-25 04:10] LABS: Hematocrit 42.7 % (40.0-54.0); Hemoglobin 14.7 g/dL (14.0-18.0); Immature Granulocyte Percent A 0.3 % (0.0-0.0); Lymphocytes Absolute Auto 2.44 K/mm3 (1.10-4.50); Mean Corpuscular HGB Conc 34.4 g/dL (32-36); Mean Corpuscular Hemoglobin 30.8 pg (27.0-31.0); Mean Corpuscular Volume 89.5 fL (78.0-102.0); Nucleated Red Blood Cells Absolute Auto 0.00 K/mm3 (0.00-0.00); Nucleated Red Blood Cells Perc 0.0 % (0-0.0); Platelet Count Result 164 K/mm3 (150-420); Red Blood Count 4.77 M/mm3 (4.70-6.10); White Blood Count 6.4 K/mm3 (4.8-10.8)
[2025-04-25 04:23] LABS: Alanine Aminotransferase 78 U/L (6-50); Albumin Level 4.3 g/dL (3.5-5.1); Alkaline Phosphatase 61 U/L (38-126); Anion Gap 9 mmol/L (4-12); Aspartate Amino Transferase 69 U/L (17-59); Bilirubin,Total 0.8 mg/dL (0.2-1.3); Blood Urea Nitrogen 13 mg/dL (9-20); Calcium 9.0 mg/dL (8.4-10.2); Carbon Dioxide 23 mmol/L (22-30); Chloride 107 mmol/L (98-107); Estimated CRCL calculation 83 ml/min; Estimated Glomerular Filt Rate > 60; Glucose 121 mg/dL (65-110); Lipase 88 U/L (23-300); Osmolality Calculated 289 mOsm/kg (285-295); Potassium 3.4 mmol/L (3.4-5.0); Sodium 139 mmol/L (137-145); Total Protein 7.4 g/dL (6.3-8.2)
[2025-04-25 04:26] LABS: INR 1.0; Partial Thromboplastin Time 24.3 Sec (23.9-30.70); Prothrombin Time 10.9 Seconds (9.50-12.1)
[2025-04-25 04:46] LABS: Troponin I < 0.012 ng/mL (0.000-0.034)
[2025-04-25 05:05] VITALS: BP 136/84; PULSE 84; RESP 18; O2SAT 98
== END 2025-04-25 05:05 | disposition home or self-care (01) ==
PROVIDERS: Emergency Provider Emergency Medicine
DX: M54.6 Pain in thoracic spine (principal); E78.5 Hyperlipidemia, unspecified
CPT/HCPCS: 36415; 71046; 80053; 83690; 84484; 85025; 85380; 85610; 85730; 93005; 96372; 99284; J2360; J7512

== ENCOUNTER 2025-05-03 14:38 | Emergency (ER) | payer BC, SELFPAY ==
--- NOTE | ~2025-05-03 | XR_ITS ---
EXAM/PROCEDURE: XR chest 2V - 05/03/2025 15:15 CDT HISTORY: 60 years old Male with feeling of heart racing TECHNIQUE: Two view(s) of the chest. COMPARISON: None available. FINDINGS: LUNGS/ PLEURA: No focal consolidation. No appreciable pneumothorax or large pleural effusion. HEART/ MEDIASTINUM: Heart appears normal in size. BONES: No acute osseous abnormality. OTHER: Visualized upper abdomen is unremarkable. IMPRESSION: No acute process. Reviewed, dictated and finalized at location A. IMPRESSION: No acute process.
--- OUTSIDE RECORDS SUMMARY | 2025-05-03 14:40 | XMS_ITS | Continuity of Care Document ---
Author Organization [facility] Address [address] [place] [address] [address] [place] [address] Phone Care Team Providers Care Drying Rack Changer Name Role Phone Dubon OD, Crescencio Unavailable Unavailable Procedures Procedure Date Office/outpatient Visit, Est Eye Exam Established Pt Advance Directives Directive Yes / No Effective Date File Name No Information Encounters Encounter Description Practice Location Reason(s) For Visit Diagnoses Date Provider Providers Copied on Encounter Office/outpat ient Visit, Est [facility], [address] [place] [address] [address], [place], [place], [address], [place] tel:[phone] [facility] No Information 8-201 0 Dubon OD Crescencio. [address] [facility] , [address], [place], [address], [place]. tel:[phone] [facility], [address] [place] [address] [address], [place], [place], [address], [place] tel:[phone] [facility] [place] No Information 1-201 0 Dubon OD Crescencio. [address] [facility] [address] , [address], [place], [address], [place]. tel:[phone] Family History Family Member Type Diagnosis Age At Onset No Information Payers Payer name Insurance type Covered democrat ID Authoriza tion(s) Medicaid [facility] [id number] Social History Type Description Quantity Date Captured [...]
--- OUTSIDE RECORDS SUMMARY | 2025-05-03 14:40 | XMS_ITS | Clinical Summary ---
Author Organization [facility] [address] Address [address] [place] [address] 5th [place] [address] Care Team Providers Care Director Learning Services Name Role Phone Todd Mata MD Primary [...] on file Legal Sex Male 12:11 PM DEVELOPMENT DIRECTOR Gender Identity Not on file Sexual Orientation Not on file Obstetrics History Last Filed Vital Signs Vital Sign Reading Time Taken Comments Blood Pressure 124/76 09/01/2024 3:48 PM DEVELOPMENT DIRECTOR Pulse 80 09/01/2024 3:48 PM DEVELOPMENT DIRECTOR Temperature 36.6 C (97.8 F) 09/01/2024 3:48 PM DEVELOPMENT DIRECTOR Respiratory Rate - - Oxygen Saturation 96% 09/01/2024 3:48 PM DEVELOPMENT DIRECTOR Inhaled Oxygen Concentration - - Weight 92.1 kg (203 lb) 09/01/2024 3:48 PM DEVELOPMENT DIRECTOR Height 175.3 cm (5' 9) 09/01/2024 3:48 PM DEVELOPMENT DIRECTOR Body Mass Index 29.98 09/01/2024 3:48 PM DEVELOPMENT DIRECTOR Plan of Treatment Health Maintenance Due Date [...] patient's age to complete this topic Insurance [facility] [employer] Care Teams Director Learning Services Relationship Specialty Start Date End Date Todd Mata MD [address] [facility] [address] [place] [address] PCP - General Family Practice 09/01/24
--- OUTSIDE RECORDS SUMMARY | 2025-05-03 14:40 | XMS_ITS | Continuity of Care Document ---
Author Organization [facility] Address [address] [facility] [place] [address] [place] [address] Phone Care Team Providers Care Insulation Installer Name Role Phone Jc Pinedo MD Unavailable [...] Diagnoses Date Provider Providers Copied on Encounter [facility], [address], [place], [place], [address], [place] [phone] [facility] Medicine No Information 0 Khris Greene. [address], [place], [place], [address] , [place]. [phone] Referring Provider: Jc Pinedo, [address], [place], [place], [address]. tel:[phone] OFFICE/OUTPA TIENT VISIT, EST [facility], [address], [place], [place], [address], [place] tel:[phone] [facility] Medicine abd pain1 (chief complaint) GERD1 (chief complaint) fatty liver1 (chief complaint) protein1 (chief complaint) HyperlipidemiaUmbil ical herniaHyperprolacti nemiaAbnormality of plasma proteinGERD w/o esophagitisFatty liver 9 Khris Greene. [address], [place], [place], [address] , [place]. [phone] Referring Provider: Lisa Becerra [address], [place], [place], [address]. tel:[phone] PREV VISIT, EST, AGE 40-64 [facility], [address], [place], [place], [address], [place] tel:[phone] [facility] Physical (chief complaint) Encounter for general adult medical exam w abnormal findingsHyperlipide miaUmbilical herniaGERD w/o esophagitisFatigue 9 Khris Greene. [address], [place], [place], [address] , [place]. [phone] Referring Provider: Lisa Becerra [address], [place], [place], [address]. tel:[phone] OFFICE/OUTPA TIENT VISIT, EST [facility], [address], [place], [place], [address], [place] tel:[phone] [facility] umbilical hernia1 (chief complaint) GERD1 (chief complaint) HLP (chief complaint) Body mass index (BMI) 30.0-30.9, adultAbdominal painHyperlipidemiaU mbilical hernia 8 Khris Greene. [address], [place], [place], [address] , [place]. tel:[phone] Referring Provider: Lisa Becerra [address], [place], [place], [address]. tel:[phone] OFFICE/OUTPA TIENT VISIT, [facility], [address], [place], [place], [address], [place] tel:[phone] [facility] abd pain1 (chief complaint) HLP (chief complaint) fatigue1 (chief complaint) HyperlipidemiaUmbil ical herniaAbdominal painFatigue 8 Khris Longo [address], [place], [place], [address] , [place]. [phone] Referring Provider: Lisa Becerra [address], [place], [place], [address]. tel:[phone] OFFICE/OUTPA TIENT VISIT, [facility], [address], [place], [place], [address], [place] tel:[phone] [facility] abd pain1 (chief complaint) fatigue1 (chief complaint) HLP (chief complaint) FatigueGERD w/o esophagitisHyperlip idemiaAbdominal pain 8 Khris Longo [address], [place], [place], [address] , [place]. tel:[phone] Referring Provider: Lisa Becerra [address], [place], [place], [address]. tel:[phone] OFFICE/OUTPA TIENT VISIT, [facility], [address], [place], [place], [address], [place] tel:[phone] [facility] GERD1 (chief complaint) albumin1 (chief complaint) vitamin D (chief complaint) HLP (chief complaint) fatigue1 (chief complaint) HyperlipidemiaOther specified abnormalities of plasma proteinsGERD w/o esophagitisFatigue Khris Greene. [address], [place], [place], [address] , [place]. [phone] Referring Provider: Lisa Becerra [address], [place], [place], [address]. tel:[phone] PREV VISIT, NEW, AGE 40-64 [facility], [address], [place], [place], [address], [place] tel:[phone] [facility] physical (chief complaint) Encounter for general adult medical exam w abnormal findingsGeneralized Anxiety DisorderChronic gastric ulcer without hemorrhageFatigue 7 Khris Greene. [address], [place], [place], [address] , [place]. [phone] Referring Provider: Lisa Becerra [address] [facility] [place], [address]. tel:[phone] Family History Family Member Type Diagnosis Age [...] to Umbilical hernia) ordered Referral Referred To: Jonathan Block [address] [place], [place], [address] Ordered: Referrals: Jonathan Block. Evaluate and treat [...] slightly pt never did the sleep study HLP Pt has HLP Pt ta kes lipitor. Pt denies any myalgia. Pt has not done the lab yet. GERD1 Pt has GERD. pt has gastritis. Pt is taking omeprazole and he denies any further abd pain recently. pt also is off all NSAID umbilical hernia1 Pt has vague r ight side and periumbilical pain Pt denies any pain recently. Pt had the Ct approved but he has not done it yet. Pt also missed his surgery appointment Pt denies any nausea, vomiting, diarrhea or constipation fatigue1 Pt has mild fati lonnie. Pt denies any sob Pt has apnea symptoms Pt has not done sleep study HLP Pt has HLP ,Pt h as been taking lipitor .Pt denies any myalgia. Pt has mild high protein and albumin in his lab lab work. abd pain1 Pt has chronic p eriumblical abd pain, sharp in nature for the past one year. Pt states taht the pain occurs 3-4 per week and is random. Pt had negative colonosocpy and EGD and HIDA and also ultrasound of abdomen. Pt denies any nausea, vomiting, diarrhea Pt takes omeprazole for GERD which is working ok abd pain1 Pt c/o chronic a bdominal [...] diarrhea. Pt denies any acute abdominal pain HLP Pt has HLP. Pt t akes lipitor. Pt denie sany myalgia. fatigue1 Pt has chornic f atigue and also he snores. Pt has not done set up sleep study yet albumin1 Pt has high albu min and protein in serum. GERD1 Pt has chronic G ERd pt has gastic ulcer Pt takes omeprazole and doing ok. Pt just seen GI and will do EGD and colonosocpy soon fatigue1 Pt feels chronic fatigue. pt does snore and feels tired in the morning and throughout the day. pt denies any sob or chest pain HLP Pt has high chol esterol and TG Pt does eat a lot of meat. Pt does not eat any vegetable vitamin D Pt has low D physical Pt needs annual physical. pt has [...]
--- OUTSIDE RECORDS SUMMARY | 2025-05-03 14:40 | XMS_ITS | Clinical Summary ---
Author Organization [facility] Address [address] [place] [address] Care Team Providers Care Behavioral Sciences Instructor Name Role Phone None, Provider MD Primary [...] to complete this topic Insurance Care Teams Behavioral Sciences Instructor Relationship Specialty Start Date End Date None, Provider, PCP - General UNKNOWN PHYSICIAN SPECIALTY 06/30/23
--- OUTSIDE RECORDS SUMMARY | 2025-05-03 14:40 | XMS_ITS | Referral Summary ---
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 MATE Gender Identity Not on file Sexual Orientation Not on file Last Filed Vital Signs Vital Sign Reading Time Taken Comments Blood Pressure 124/76 09/01/2024 3:48 PM TORPEDOMAN'S MATE Pulse 80 09/01/2024 3:48 PM TORPEDOMAN'S MATE Temperature 36.6 C (97.8 F) 09/01/2024 3:48 PM TORPEDOMAN'S MATE Respiratory Rate - - Oxygen Saturation 96% 09/01/2024 3:48 PM TORPEDOMAN'S MATE Inhaled Oxygen Concentration - - Weight 92.1 kg (203 lb) 09/01/2024 3:48 PM TORPEDOMAN'S MATE Height 175.3 cm (5' 9) 09/01/2024 3:48 PM TORPEDOMAN'S MATE Body Mass Index 29.98 09/01/2024 3:48 PM TORPEDOMAN'S MATE Plan of Treatment Not on file Insurance [facility] ACCESS Care Teams Hot Box Spotter Relationship Specialty Start Date End Date Todd Mata MD [address] [facility] [address] [place] [address] PCP - General Family Practice 09/01/24
[2025-05-03 14:44] VITALS: BP 148/84; PULSE 81; RESP 16; TEMP 37.1; O2SAT 100
--- NOTE | 2025-05-03 14:57 | ECG_ITS ---
Test Date: 2025-05-03 15:03:36 Measurements Intervals [place] Rate: 77 P: 55 MO: 116 QRS: 12 QRSD: 101 T: 45 QT: 376 QTc: 426 Interpretive Statements SINUS RHYTHM WITH SHORT MO INTERVAL SEPTAL MYOCARDIAL INFARCTION , PROBABLY OLD [40+ ms Q WAVE IN V1/V2] ABNORMAL ECG Compared to ECG 04/25/2025 03:39:00 Short MO interval now present Myocardial infarct finding now present Sinus bradycardia no longer present Electronically Signed On 05-04-2025 09:55:06 CDT by Zeeshan Hernandez M.D.
--- NOTE | 2025-05-03 14:59 | ED.ANXIETY ---
HPI - Anxiety General Chief Complaint: Anxiety Stated Complaint: anxiety Time Seen by Provider: 05/03/25 14:55 Focused HPI: Patient is a 60-year-old male who presents to the ER with an anxiety attack. He reports yesterday he went to his primary care provider due to a muscle tear in his right shoulder. Patient reports his primary care provider prescribed Martinez, diclofenac, and tizanidine. He is already on daily baseline anxiety medication. Patient reports he took the medications 2 hours apart as directed by pharmacy. Around 1:00 p.m. patient reports he took his pain pill and approximately 45 minutes later he started feeling like crap. He reports he started sweating and felt like his heart was racing. At time of examination, pt reports his symptoms are starting to subside but he is not back to baseline. Patient endorses a history of anxiety and bipolar disorder. GENERAL: Well-appearing, well-nourished, and in no acute distress. HEAD: Normocephalic, atraumatic. CHEST: Clear to auscultation. ?No respiratory distress. HEART: Regular rate and rhythm.? NEURO: ?Alert and oriented x3. Patient screened in triage and initial orders placed.? ?Additional care and disposition to be based upon?diagnostic testing and treatment. Related Data Home Medications ?Medication ?Instructions ?Recorded ?Confirmed ?Last Taken ?Type aripiprazole 15 mg tablet mg 10/25/24 Unknown History buspirone 15 mg tablet mg 10/25/24 Unknown History doxepin 10 mg capsule mg 10/25/24 Unknown History hydroxyzine pamoate 25 mg capsule mg 10/25/24 Unknown History lamotrigine 100 mg tablet mg 10/25/24 Unknown History Allergies Allergy/AdvReac Type Severity Reaction Status Date / Time No Known Allergies Allergy Verified 05/04/25 05:54 [facility] Past Medical History Medical History Diverticulitis large intestine w/o perforation or abscess w/o bleeding Diverticulosis Left ureteral stone Arthritis Right kidney mass Left renal stone Hepatic steatosis Umbilical hernia without obstruction and without gangrene GERD (gastroesophageal reflux disease) Depression Anxiety Hyperlipidemia Surgical History Surgical History History of orthopedic surgery to remove pin out of left 1st digit History of eye surgery to remove metal in eye H/O umbilical hernia repair Family History Family History Mother Patient's mother is Father Patient's father is Sibling Patient's sister is in good health Patient's brother is in good health Family history of coronary artery disease Breast cancer Stomach cancer Social History Social History Smoking status: Never smoker Alcohol intake: current Substance use: current Substance use type: marijuana Other substance usage details: occasional Last use: 2 weeks ago Occupation/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oncerns: Yes ([place]) Agree to blood products: Yes Course Vital Signs Vital signs: Vital Signs Temperature 37.1 C 05/03/25 14:44 Pulse Rate 81 05/03/25 14:44 Respiratory Rate 16 05/03/25 14:44 Blood Pressure 148/84 H 05/03/25 14:44 Pulse Oximetry 100 05/03/25 14:44 Oxygen Delivery Room Air 05/03/25 14:44 Temperature 37.1 C 05/03/25 14:44 Pulse Rate 66 05/03/25 17:12 Respiratory Rate 17 05/03/25 17:12 Blood Pressure 151/98 H 05/03/25 17:12 Pulse Oximetry 99 05/03/25 17:12 Oxygen Delivery Room Air 05/03/25 14:44 MDM - Anxiety Lab Data 05/03/25 15:00 05/03/25 15:00 Labs: Lab Results 05/03/25 05/03/25 05/03/25 Range/Units 15:00 15:00 17:12 WBC 7.5 (4.5-10.0) K/mm3 RBC 4.92 (4.6-6.20) M/mm3 Hgb 15.4 (14.0-18.0) g/dL Hct 43.6 (42.0-52.0) % MCV 88.6 (80-100) fl MCH 31.3 (26-34) pg MCHC 35.3 (32-36) g/dl RDW 12.3 (11.5-14.5) % Plt Count 186 (150-375) k/mm3 MPV 8.2 (7.4-10.4) fl Immature Gran % (Auto) 0.4 (0-0.5) % Neut % (Auto) 51.8 (45.5-73.1) % Lymph % (Auto) 39.0 (18.3-44.2) % Desha % (Auto) 6.0 (2.6-8.5) % Eos % (Auto) 2.1 (0-4.4) % Baso % (Auto) 0.7 (0.2-1.2) % Lymph # (Auto) 2.94 (0.9-3.2) K/mm3 Desha # (Auto) 0.5 (0.1-0.6) K/mm3 Eos # (Auto) 0.2 (0-0.3) K/mm3 Baso # (Auto) 0.1 (0.0-0.1) K/mm3 Abs Immat Gran (auto) 0.03 (0.00-0.031) K/mm3 Absolute Neuts (auto) 3.9 (1.3-6.7) K/mm3 Absolute Nucleated RBC 0.000 (0.0-0.012) K/mm3 Nucleated RBC % 0.0 (0.0-0.2) % Sodium 135 L (137-145) mmol/L Potassium 3.6 (3.4-5.0) mmol/L Chloride 102 (98-107) mmol/L Carbon Dioxide 21 L (22-30) mmol/L Anion Gap 12 (4-12) mmol/L BUN 16 (9-20) mg/dL Creatinine 0.86 (0.7-1.3) mg/dL Estim Creat Clear Calc 79 ml/min Estimated GFR > 60 (59 - ) Glucose 133 H (65-110) mg/dL Calcium 10.2 (8.4-10.2) mg/dL Total Bilirubin 0.8 (0.2-1.3) mg/dL AST 79 H (17-59) U/L ALT 91 H (6-50) U/L Alkaline Phosphatase 68 (38-126) U/L Troponin I < 0.012 Cancelled (0.000-0.034) ng/mL Total Protein 8.1 (6.3-8.2) g/dL Albumin 4.7 (3.5-5.1) g/dL Lipase 85 (23-300) U/L TSH (Reflex) 2.890 (0.465-4.68) uIU/mL Urine Color Yellow (Yellow) Urine Appearance Cloudy H (Clear) Urine pH 5.5 (5.0-9.0) Ur Specific Tracy 1.015 (1.001-1.035) Urine Protein Negative (Negative) mg/dL Urine Glucose (UA) Negative (Negative) mg/dL Urine Ketones Trace H (Negative) mg/dL Ur Blood (Man) Negative (Negative) Urine Nitrate Negative (Negative) Urine Bilirubin Negative (Negative) Urine Urobilinogen 0.2 (<2.0) mg/dL Add Ur Microanalysis Reviewed Leukocyte Esterase Rfl 1+ H (Negative) RODRIGUEZ/UL Urine RBC 0-2 (0-2) /hpf Urine WBC 6-10 H (0-3) /hpf Ur Squamous Epith Cells Few (Few) /hpf Urine Bacteria Rare /hpf Urine Casts 6-10 Hyaline Casts Present (None) /lpf Urine Mucus Present /lpf Urine Opiates Screen Positive A (Negative) Urine Methadone Screen Negative (Negative) Ur Barbiturates Screen Negative (Negative) Ur Phencyclidine Scrn Negative (Negative) Ur Amphetamine Screen Negative (Negative) U Benzodiazepines Scrn Negative (Negative) Urine Cocaine Screen Negative (Negative) U Cannabinoids Screen Positive A (Negative) Ethyl Alcohol < 10 (<10) mg/dL Discharge Plan Discharge Clinical Impression: Acute anxiety Patient Disposition: Elopement After Seen by Prov Patient Language: Kiswahili Prescriptions: No Action doxepin 10 mg capsule lamotrigine 100 mg tablet buspirone 15 mg tablet hydroxyzine pamoate 25 mg capsule aripiprazole 15 mg tablet buspirone 15 mg tablet 15 mg PO BID Qty: 60 0RF lamotrigine 100 mg tablet 100 mg PO BID Qty: 60 0RF doxepin 10 mg capsule 10 mg PO HS PRN (Reason: insomnia) Qty: 30 0RF hydroxyzine pamoate 25 mg capsule 25 mg PO TID PRN (Reason: itching) Qty: 60 0RF aripiprazole 15 mg tablet 15 mg PO HS Qty: 30 0RF prednisone 20 mg tablet 40 mg PO DAILY 3 Days Qty: 6 0RF orphenadrine citrate 100 mg tablet extended release 100 mg PO BID PRN (Reason: pain) Qty: 20 0RF orphenadrine citrate 100 mg tablet extended release 100 mg PO Q12H Qty: 10 0RF Follow-up/Referrals: UNKNOWN,DOCTOR [Primary Care Provider] -
[2025-05-03 15:25] LABS: Hematocrit 43.6 % (42.0-52.0); Hemoglobin 15.4 g/dL (14.0-18.0); Immature Granulocyte Percent A 0.4 % (0-0.5); Lymphocytes Absolute Auto 2.94 K/mm3 (0.9-3.2); Mean Corpuscular HGB Conc 35.3 g/dl (32-36); Mean Corpuscular Hemoglobin 31.3 pg (26-34); Mean Corpuscular Volume 88.6 fl (80-100); Nucleated Red Blood Cells Absolute Auto 0.000 K/mm3 (0.0-0.012); Nucleated Red Blood Cells Perc 0.0 % (0.0-0.2); Platelet Count Result 186 k/mm3 (150-375); Red Blood Count 4.92 M/mm3 (4.6-6.20); White Blood Count 7.5 K/mm3 (4.5-10.0)
[2025-05-03 15:26] LABS: Alanine Aminotransferase 91 U/L (6-50); Albumin Level 4.7 g/dL (3.5-5.1); Alkaline Phosphatase 68 U/L (38-126); Anion Gap 12 mmol/L (4-12); Aspartate Amino Transferase 79 U/L (17-59); Bilirubin,Total 0.8 mg/dL (0.2-1.3); Blood Urea Nitrogen 16 mg/dL (9-20); Calcium 10.2 mg/dL (8.4-10.2); Carbon Dioxide 21 mmol/L (22-30); Chloride 102 mmol/L (98-107); Estimated CRCL calculation 79 ml/min; Estimated Glomerular Filt Rate > 60; Glucose 133 mg/dL (65-110); Lipase 85 U/L (23-300); Potassium 3.6 mmol/L (3.4-5.0); Sodium 135 mmol/L (137-145); Total Protein 8.1 g/dL (6.3-8.2)
[2025-05-03 15:37] LABS: Troponin I < 0.012 ng/mL (0.000-0.034)
[2025-05-03 16:43] LABS: Thyroid Stimulating Hormone Reflex 2.890 uIU/mL (0.465-4.68)
[2025-05-03 17:12] VITALS: BP 151/98; PULSE 66; RESP 17; O2SAT 99
[2025-05-03 17:43] LABS: Cannabinoid Screen Urine Positive (Negative)
[2025-05-03 17:45] LABS: Add Urine Microscopic? YES; Appearance Urine Cloudy (Clear); Glucose Urine UA Negative (Negative); Leukocyte Esterase Ur 1+ LEU/UL (Negative); Need Manual Microscopic Reviewed; Nitrate Urine Negative (Negative); Specific Grav Ur 1.015 (1.001-1.035)
--- NOTE | 2025-05-03 18:18 | PC.NURSE ---
pt unhappy about LOS in lobby. pt threatening to leave. willing to stay five more mins Encouraged to be patient with staff and ER again pt stated five more mins
--- NOTE | 2025-05-03 18:29 | PC.NURSE ---
pt walked by triage desk and told staff I'm leaving and walked out the front door with a steady gait.
--- NOTE | 2025-05-03 18:35 | PC.NURSE ---
pt to desk, I am leaving
--- OUTSIDE RECORDS SUMMARY | 2025-05-03 18:38 | XMS_ITS | Referral Summary ---
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 Gender Identity Not on file Sexual Orientation Not on file Last Filed Vital Signs Vital Sign Reading Time Taken Comments Blood Pressure 124/76 09/01/2024 3:48 PM SOFTWARE DESIGNER Pulse 80 09/01/2024 3:48 PM SOFTWARE DESIGNER Temperature 36.6 C (97.8 F) 09/01/2024 3:48 PM SOFTWARE DESIGNER Respiratory Rate - - Oxygen Saturation 96% 09/01/2024 3:48 PM SOFTWARE DESIGNER Inhaled Oxygen Concentration - - Weight 92.1 kg (203 lb) 09/01/2024 3:48 PM SOFTWARE DESIGNER Height 175.3 cm (5' 9) 09/01/2024 3:48 PM SOFTWARE DESIGNER Body Mass Index 29.98 09/01/2024 3:48 PM SOFTWARE DESIGNER Plan of Treatment Not on file Insurance [facility] ACCESS Care Teams Philosophy Faculty Member Relationship Specialty Start Date End Date Todd Mata MD [address] [facility] [address] [place] [address] PCP - General Family Practice 09/01/24
--- OUTSIDE RECORDS SUMMARY | 2025-05-03 18:38 | XMS_ITS | Clinical Summary ---
Author Organization [facility] Address [address] [place] [address] Care Team Providers Care Research Test Engine Operator Name Role Phone None, Provider MD Primary [...] to complete this topic Insurance Care Teams Research Test Engine Operator Relationship Specialty Start Date End Date None, Provider, PCP - General UNKNOWN PHYSICIAN SPECIALTY 06/30/23
--- OUTSIDE RECORDS SUMMARY | 2025-05-03 18:38 | XMS_ITS | Continuity of Care Document ---
Author Organization [facility] Address [address] [place] [address] [place] [address] Phone Care Team Providers Care Importer Exporter Name Role Phone Jc Pinedo MD Unavailable [...] Diagnoses Date Provider Providers Copied on Encounter [facility] [place], [address], [place], [place], [address], [place] [phone] [facility] Medicine No Information 0 Khris Greene. [address], [place], [place], [address] , [place]. [phone] Referring Provider: Jc Pinedo, [address], [place], [place], [address]. tel:[phone] OFFICE/OUTPA TIENT VISIT, EST [facility] [place], [address], [place], [place], [address], [place] tel:[phone] [facility] Medicine abd pain1 (chief complaint) GERD1 (chief complaint) fatty liver1 (chief complaint) protein1 (chief complaint) HyperlipidemiaUmbil ical herniaHyperprolacti nemiaAbnormality of plasma proteinGERD w/o esophagitisFatty liver 9 Khris Greene. [address], [place], [place], [address] , [place]. [phone] Referring Provider: Lisa Bec[address], [place], [place], [address]. tel:[phone] PREV VISIT, EST, AGE 40-64 [facility] [place], [address], [place], [place], [address], [place] tel:[phone] [facility] [place] Physical (chief complaint) Encounter for general adult medical exam w abnormal findingsHyperlipide miaUmbilical herniaGERD w/o esophagitisFatigue 9 Khris Greene. [address], [place], [place], [address] , [place]. [phone] Referring Provider: Lisa [address], [place], [place], [address]. tel:[phone] OFFICE/OUTPA TIENT VISIT, EST [facility] [place], [address], [place], [place], [address], [place] tel:[phone] [facility] [place] umbilical hernia1 (chief complaint) GERD1 (chief complaint) HLP (chief complaint) Body mass index (BMI) 30.0-30.9, adultAbdominal painHyperlipidemiaU mbilical hernia 8 Khris Greene. [address], [place], [place], [address] , [place]. tel:[phone] Referring Provider: Lisa Bec[address], [place], [place], [address]. tel:[phone] OFFICE/OUTPA TIENT VISIT, [facility], [address], [place], [place], [address], [place] tel:[phone] [facility] [place] abd pain1 (chief complaint) HLP (chief complaint) fatigue1 (chief complaint) HyperlipidemiaUmbil ical herniaAbdominal painFatigue 8 Khris Longo [address], [place], [place], [address] , [place]. [phone] Referring Provider: Lisa Bec[address], [place], [place], [address]. tel:[phone] OFFICE/OUTPA TIENT VISIT, [facility], [address], [place], [place], [address], [place] tel:[phone] [facility] [place] abd pain1 (chief complaint) fatigue1 (chief complaint) HLP (chief complaint) FatigueGERD w/o esophagitisHyperlip idemiaAbdominal pain 8 Khris Longo [address], [place], [place], [address] , [place]. tel:[phone] Referring Provider: Lisa Bec[address], [place], [place], [address]. tel:[phone] OFFICE/OUTPA TIENT VISIT, [facility], [address], [place], [place], [address], [place] tel:[phone] [facility] [place] GERD1 (chief complaint) albumin1 (chief complaint) vitamin D (chief complaint) HLP (chief complaint) fatigue1 (chief complaint) HyperlipidemiaOther specified abnormalities of plasma proteinsGERD w/o esophagitisFatigue Khris Greene. [address], [place], [place], [address] , [place]. [phone] Referring Provider: Lisa Bec[address], [place], [place], [address]. tel:[phone] PREV VISIT, NEW, AGE 40-64 [facility], [address], [place], [place], [address], [place] tel:[phone] [facility], [place] physical (chief complaint) Encounter for general adult medical exam w abnormal findingsGeneralized Anxiety DisorderChronic gastric ulcer without hemorrhageFatigue 7 Khris Greene. [address], [place], [place], [address] , [place]. [phone] Referring Provider: Lisa Bec[address] [facility] [place] [place], [address]. tel:[phone] Family History Family Member Type Diagnosis Age At Onset Sister Problem (finding) stomach and breast CA Mother Problem (finding) of bowel obstruction (Cause Of ) 62 Sister Problem (finding) Alive and well Father Problem (finding) Father Problem (finding) of old age 84 Brother Problem (finding) Coronary artery disease 55 Brother Problem (finding) Alive and well Payers Payer name Insurance type Covered democrat ID Authoriza tion(s) No Information Social History [...] UmairJonathan [address] [place], [place], [address] Ordered: Referrals: Jonathan Block. Evaluate and treat [...]
--- OUTSIDE RECORDS SUMMARY | 2025-05-03 18:38 | XMS_ITS | Clinical Summary ---
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 Gender Identity Not on file Sexual Orientation Not on file Obstetrics History Last Filed Vital Signs Vital Sign Reading Time Taken Comments Blood Pressure 124/76 09/01/2024 3:48 PM MOTEL FRONT DESK ATTENDANT Pulse 80 09/01/2024 3:48 PM MOTEL FRONT DESK ATTENDANT Temperature 36.6 C (97.8 F) 09/01/2024 3:48 PM MOTEL FRONT DESK ATTENDANT Respiratory Rate - - Oxygen Saturation 96% 09/01/2024 3:48 PM MOTEL FRONT DESK ATTENDANT Inhaled Oxygen Concentration - - Weight 92.1 kg (203 lb) 09/01/2024 3:48 PM MOTEL FRONT DESK ATTENDANT Height 175.3 cm (5' 9) 09/01/2024 3:48 PM MOTEL FRONT DESK ATTENDANT Body Mass Index 29.98 09/01/2024 3:48 PM MOTEL FRONT DESK ATTENDANT Plan of Treatment Health Maintenance Due Date [...] patient's age to complete this topic Insurance [facility] Care Teams Superintendent Landfill Operations Relationship Specialty Start Date End Date Todd Mata MD [address] [facility] [address] [place] [address] PCP - General Family Practice 09/01/24
--- OUTSIDE RECORDS SUMMARY | 2025-05-03 18:38 | XMS_ITS | Continuity of Care Document ---
Author Organization [facility] Address [address] [place] [address] [address] [place] [address] Phone Care Team Providers Care Structural Engineer Name Role Phone Dubon OD, Crescencio Unavailable Unavailable Procedures Procedure Date Office/outpatient Visit, Est Eye Exam Established Pt Advance Directives Directive Yes / No Effective Date File Name No Information Encounters Encounter Description Practice Location Reason(s) For Visit Diagnoses Date Provider Providers Copied on Encounter Office/outpat ient Visit, Est [facility], [address] [place] [address] [address], [place], [place], [address], [place] tel:[phone] SEC [facility] No Information 8-201 0 Dubon OD Crescencio. [address] [facility] [address] , [address], [place], [address], [place]. tel:[phone] [facility], [address] [place] [address] [address], [place], [place], [address], [place] tel:[phone] [facility] No Information 1-201 0 Dubon OD Crescencio. [address] [facility] [address] , [address], [place], [address], [place]. tel:[phone] Family History Family Member Type Diagnosis Age At Onset No Information Payers Payer name Insurance type Covered green party ID Authoriza tion(s) Medicaid [facility] [id number] Social History Type Description Quantity Date Captured [...]
== END 2025-05-03 18:39 | disposition left against medical advice (07) ==
PROVIDERS: Emergency Provider Registered Nurse
DX: F41.9 Anxiety disorder, unspecified (principal); E78.5 Hyperlipidemia, unspecified; K21.9 Gastro-esophageal reflux disease without esophagitis; F32.A Depression, unspecified; Z87.442 Personal history of urinary calculi; Z79.899 Other long term (current) drug therapy
CPT/HCPCS: 36415; 71046; 80053; 80307; 81001; 82077; 83690; 84443; 84484; 85025; 87086; 93005; 99284

== ENCOUNTER 2025-05-04 05:31 | Emergency (ER) | payer BC, SELFPAY ==
[2025-05-04 05:31] VITALS: BP 161/97; PULSE 72; RESP 18; TEMP 36.8; O2SAT 99
--- OUTSIDE RECORDS SUMMARY | 2025-05-04 05:33 | XMS_ITS | Referral Summary ---
Author Organization [facility] [address] Address [address] [place] [address] 5th [place] [address] Care Team Providers Care Mirror Inspector Name Role Phone Todd Mata MD Primary [...] on file Legal Sex Male 12:11 PM LEARNING PROGRAM MANAGER Gender Identity Not on file Sexual Orientation Not on file Last Filed Vital Signs Vital Sign Reading Time Taken Comments Blood Pressure 124/76 09/01/2024 3:48 PM LEARNING PROGRAM MANAGER Pulse 80 09/01/2024 3:48 PM LEARNING PROGRAM MANAGER Temperature 36.6 C (97.8 F) 09/01/2024 3:48 PM LEARNING PROGRAM MANAGER Respiratory Rate - - Oxygen Saturation 96% 09/01/2024 3:48 PM LEARNING PROGRAM MANAGER Inhaled Oxygen Concentration - - Weight 92.1 kg (203 lb) 09/01/2024 3:48 PM LEARNING PROGRAM MANAGER Height 175.3 cm (5' 9) 09/01/2024 3:48 PM LEARNING PROGRAM MANAGER Body Mass Index 29.98 09/01/2024 3:48 PM LEARNING PROGRAM MANAGER Plan of Treatment Not on file Insurance [facility] ACCESS Care Teams Mirror Inspector Relationship Specialty Start Date End Date Todd Mata MD [address] [facility] [address] [place] [address] PCP - General Family Practice 09/01/24
--- OUTSIDE RECORDS SUMMARY | 2025-05-04 05:33 | XMS_ITS | Continuity of Care Document ---
Author Organization [facility] Address [address] [facility] [place] [place] [address] [place] [address] Phone Care Team Providers Care Corporate Treasurer Name Role Phone Jc Pinedo MD Unavailable [...] Diagnoses Date Provider Providers Copied on Encounter [facility] [place], [address], [place], [place], [address], [place] [phone] [facility] No Information 0 Khris Greene. [address], [address], [place], [place], [address] , [place]. [phone] Referring Provider: Jc Pinedo, [address], [place], [place], [address]. tel:[phone] OFFICE/OUTPA TIENT VISIT, EST [facility] [place], [address], [place], [place], [address], [place] tel:[phone] [facility] abd pain1 (chief complaint) GERD1 (chief complaint) fatty liver1 (chief complaint) protein1 (chief complaint) HyperlipidemiaUmbil ical herniaHyperprolacti nemiaAbnormality of plasma proteinGERD w/o esophagitisFatty liver 9 Khris Greene. [address], [address], [place], [place], [address] , [place]. [phone] Referring Provider: Lisa Becerra [address], [place], [place], [address]. tel:[phone] PREV VISIT, EST, AGE 40-64 [facility] [place], [address], [place], [place], [address], [place] tel:[phone] [facility] [place] Physical (chief complaint) Encounter for general adult medical exam w abnormal findingsHyperlipide miaUmbilical herniaGERD w/o esophagitisFatigue 9 Khris Greene. [address], [address], [place], [place], [address] , [place]. tel:[phone] Referring Provider: Lisa Becerra [address], [place], [place], [address]. tel:[phone] OFFICE/OUTPA TIENT VISIT, EST [facility] [place], [address], [place], [place], [address], [place] tel:[phone] [facility] [place] umbilical hernia1 (chief complaint) GERD1 (chief complaint) HLP (chief complaint) Body mass index (BMI) 30.0-30.9, adultAbdominal painHyperlipidemiaU mbilical hernia 8 Khris Greene. [address], [place], [place], [address] , [place]. tel:[phone] Referring Provider: Lisa Bec[address], [place], [place], [address]. tel:[phone] OFFICE/OUTPA TIENT VISIT, [facility], [address], [place], [place], [address], [place] tel:[phone] [facility] [place] abd pain1 (chief complaint) HLP (chief complaint) fatigue1 (chief complaint) HyperlipidemiaUmbil ical herniaAbdominal painFatigue 8 Khris Longo [address], [address], [place], [place], [address] , [place]. [phone] Referring Provider: Lisa Becerra [address], [place], [place], [address]. tel:[phone] OFFICE/OUTPA TIENT VISIT, [facility], [address], [place], [place], [address], [place] tel:[phone] [facility] [place] abd pain1 (chief complaint) fatigue1 (chief complaint) HLP (chief complaint) FatigueGERD w/o esophagitisHyperlip idemiaAbdominal pain 8 Khris Longo [address], [address], [place], [place], [address] , [place]. tel:[phone] Referring Provider: Lisa Becerra [address], [place], [place], [address]. tel:[phone] OFFICE/OUTPA TIENT VISIT, [facility], [address], [place], [place], [address], [place] tel:[phone] [facility] [place] GERD1 (chief complaint) albumin1 (chief complaint) vitamin D (chief complaint) HLP (chief complaint) fatigue1 (chief complaint) HyperlipidemiaOther specified abnormalities of plasma proteinsGERD w/o esophagitisFatigue Khris Greene. [address], [address], [place], [place], [address] , [place]. [phone] Referring Provider: Lisa Becerra [address], [place], [place], [address]. tel:[phone] PREV VISIT, NEW, AGE 40-64 [facility], [address], [place], [place], [address], [place] tel:[phone] [facility] [place] physical (chief complaint) Encounter for general adult medical exam w abnormal findingsGeneralized Anxiety DisorderChronic gastric ulcer without hemorrhageFatigue 7 Khris Greene. [address], [address], [place], [place], [address] , [place]. [phone] Referring Provider: Lisa Becerra [address] [facility] [place], [address]. tel:[phone] Family History Family Member Type Diagnosis Age [...] [address] [place], [place], [id number] Ordered: Referrals: Jonathan Block. Evaluate and treat ordered Referral Ordered: CT ABDOMEN&PELVIS W/CONTRAST ordered Referral Ordered: SLEEP STUDY, ATTENDED ordered Referral Ordered: Gastroenterology (related to Chronic gastric ulcer without hemorrhage) ordered Referral Ordered: Referrals: Gastroenterology. Evaluate and treat ordered History Of Present Illness Encounter Date Complaint History Of Prese nt Illness abd pain1 pt c/o intermitt ent sharp [...] goes away. Pt denies any acute pain protein1 Pt has high prot ein and high albumin. I still do not have lab from psychiatrist I called several times today but not sure if they can fax over lab in time fatty liver1 Pt has fatty williams er. Pt denies any abd pain GERD1 Pt has daily SALVATORE D. pt had gastritis on EGD last year Pt has heartburn daily. Pt has been taking otc meds daily. Physical Pt needs annual physical, pt has [...] which is working ok HLP Pt has HLP. Pt t akes lipitor. Pt denie sany myalgia. fatigue1 Pt has chornic f atigue and also he snores. Pt has not done set up sleep study yet abd pain1 Pt c/o chronic a bdominal [...] diarrhea. Pt denies any acute abdominal pain fatigue1 Pt feels chronic fatigue. pt does snore and feels tired in the morning and throughout the day. pt denies any sob or chest pain HLP Pt has high chol esterol and TG Pt does eat a lot of meat. Pt does not eat any vegetable vitamin D Pt has low D albumin1 Pt has high albu min and protein in serum. GERD1 Pt has chronic G ERd pt has gastic ulcer Pt takes omeprazole and doing ok. Pt just seen GI and will do EGD and colonosocpy soon physical Pt needs annual physical. pt has [...] day. Instructions Date Instruction Additional Infor mation Follow a low sodium diet. Relate d to Hyperlipidemia Special diet education Related t o Body mass index (BMI) 30.0-30.9, adult Weight management Related to Enc ounter for [...] Body mass index (BMI) 30.0-30.9, adult Prescribed Activity and Exercise Education Related to [...]
--- OUTSIDE RECORDS SUMMARY | 2025-05-04 05:33 | XMS_ITS | Clinical Summary ---
Author Organization [facility] Address [address] [place] [address] Care Team Providers Care Senior Consulting Manager Name Role Phone None, Provider MD Primary [...] to complete this topic Insurance Care Teams Senior Consulting Manager Relationship Specialty Start Date End Date None, Provider, PCP - General UNKNOWN PHYSICIAN SPECIALTY 06/30/23
--- OUTSIDE RECORDS SUMMARY | 2025-05-04 05:33 | XMS_ITS | Continuity of Care Document ---
Author Organization [facility] Address [address] [place] [address] [address] [place] [address] Phone Care Team Providers Care Auto Radiator Specialist Name Role Phone Dubon OD, Crescencio Unavailable Unavailable Procedures Procedure Date Office/outpatient Visit, Est Eye Exam Established Pt Advance Directives Directive Yes / No Effective Date File Name No Information Encounters Encounter Description Practice Location Reason(s) For Visit Diagnoses Date Provider Providers Copied on Encounter Office/outpat ient Visit, Est [facility], [address] [place] [address] [address], [place], [place], [address], [place] tel:[phone] SEC [facility] No Information 8-201 0 Dubon OD Crescencio. [address] [facility] , [address], [place], [address], [place]. tel:[phone] [facility], [address] [place] [address] [address], [place], [place], [address], [place] tel:[phone] [facility] [place] [place] No Information 1-201 0 Dubon OD Crescencio. [address] [facility] [place] , [address], [place], [address], [place]. tel:[phone] Family History Family Member Type Diagnosis Age At Onset No Information Payers Payer name Insurance type Covered democrat ID Authoriza tion(s) Medicaid [facility] [id number] Social History Type Description Quantity Date Captured [...]
--- OUTSIDE RECORDS SUMMARY | 2025-05-04 05:33 | XMS_ITS | Clinical Summary ---
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 Gender Identity Not on file Sexual Orientation Not on file Obstetrics History Last Filed Vital Signs Vital Sign Reading Time Taken Comments Blood Pressure 124/76 09/01/2024 3:48 PM REMOTE COMPUTER TERMINAL OPERATOR Pulse 80 09/01/2024 3:48 PM REMOTE COMPUTER TERMINAL OPERATOR Temperature 36.6 C (97.8 F) 09/01/2024 3:48 PM REMOTE COMPUTER TERMINAL OPERATOR Respiratory Rate - - Oxygen Saturation 96% 09/01/2024 3:48 PM REMOTE COMPUTER TERMINAL OPERATOR Inhaled Oxygen Concentration - - Weight 92.1 kg (203 lb) 09/01/2024 3:48 PM REMOTE COMPUTER TERMINAL OPERATOR Height 175.3 cm (5' 9) 09/01/2024 3:48 PM REMOTE COMPUTER TERMINAL OPERATOR Body Mass Index 29.98 09/01/2024 3:48 PM REMOTE COMPUTER TERMINAL OPERATOR Plan of Treatment Health Maintenance Due Date [...] patient's age to complete this topic Insurance [facility] [employer] [facility] Address: [facility] [id number] [place] [address] Care Teams Fare Collector Relationship Specialty Start Date End Date Todd Mata MD [address] [facility] [address] [place] [address] PCP - General Family Practice 09/01/24
--- OUTSIDE RECORDS SUMMARY | 2025-05-04 05:59 | XMS_ITS | Continuity of Care Document ---
Author Organization [facility] Address [address] [facility] [place] [address] Phone Care Team Providers Care Reinforcer Name Role Phone Jc Pinedo MD Unavailable [...] Diagnoses Date Provider Providers Copied on Encounter [facility], [address], [place], [place], [address], [place] [phone] [facility] No Information 0 Khris Greene. [address], [address], [place], [place], [address] , [place]. [phone] Referring Provider: Jc Pinedo, Lisa [address], [place], [place], [address]. tel:[phone] OFFICE/OUTPA TIENT VISIT, EST [facility], [address], [place], [place], [address], [place] tel:[phone] [facility] Medicine abd pain1 (chief complaint) GERD1 (chief complaint) fatty liver1 (chief complaint) protein1 (chief complaint) HyperlipidemiaUmbil ical herniaHyperprolacti nemiaAbnormality of plasma proteinGERD w/o esophagitisFatty liver 9 Khris Greene. [address], [address], [place], [place], [address] , [place]. [phone] Referring Provider: Lisa Becerra [address], [place], [place], [address]. tel:[phone] PREV VISIT, EST, AGE 40-64 [facility], [address], [place], [place], [address], [place] tel:[phone] [facility] Physical (chief complaint) Encounter for general adult medical exam w abnormal findingsHyperlipide miaUmbilical herniaGERD w/o esophagitisFatigue 9 Khris Greene. [address], [address], [place], [place], [address] , [place]. [phone] Referring Provider: Lisa Becerra [address], [place], [place], [address]. tel:[phone] OFFICE/OUTPA TIENT VISIT, EST [facility], [address], [place], [place], [address], [place] tel:[phone] [facility] umbilical hernia1 (chief complaint) GERD1 (chief complaint) HLP (chief complaint) Body mass index (BMI) 30.0-30.9, adultAbdominal painHyperlipidemiaU mbilical hernia 8 Khris Greene. [address], [address], [place], [place], [address] , [place]. tel:[phone] Referring Provider: Lisa Becerra [address], [place], [place], [address]. tel:[phone] OFFICE/OUTPA TIENT VISIT, [facility], [address], [place], [place], [address], [place] tel:[phone] [facility] abd pain1 (chief complaint) HLP (chief complaint) fatigue1 (chief complaint) HyperlipidemiaUmbil ical herniaAbdominal painFatigue 8 Khris Longo [address], [address], [place], [place], [address] , [place]. [phone] Referring Provider: Lisa Becerra [address], [place], [place], [address]. tel:[phone] OFFICE/OUTPA TIENT VISIT, [facility], [address], [place], [place], [address], [place] tel:[phone] [facility] abd pain1 (chief complaint) fatigue1 (chief complaint) HLP (chief complaint) FatigueGERD w/o esophagitisHyperlip idemiaAbdominal pain 8 Khris Longo [address], [address], [place], [place], [address] , [place]. tel:[phone] Referring Provider: Lisa Becerra [address], [place], [place], [address]. tel:[phone] OFFICE/OUTPA TIENT VISIT, [facility], [address], [place], [place], [address], [place] tel:[phone] [facility] GERD1 (chief complaint) albumin1 (chief complaint) vitamin D (chief complaint) HLP (chief complaint) fatigue1 (chief complaint) HyperlipidemiaOther specified abnormalities of plasma proteinsGERD w/o esophagitisFatigue Khris Greene. [address], [address], [place], [place], [address] , [place]. [phone] Referring Provider: Lisa Becerra [address], [place], [place], [address]. tel:[phone] PREV VISIT, NEW, AGE 40-64 [facility], [address], [place], [place], [address], [place] tel:[phone] [facility] physical (chief complaint) Encounter for general adult medical exam w abnormal findingsGeneralized Anxiety DisorderChronic gastric ulcer without hemorrhageFatigue 7 Khris Greene. [address], [place], [place], [address] , [place]. [phone] Referring Provider: Lisa Becerra [address] [facility] [place], [address]. tel:[phone] Family History Family Member Type Diagnosis Age At Onset Sister Problem (finding) stomach and breast CA Mother Problem (finding) of bowel obstruction (Cause Of ) 62 Sister Problem (finding) Alive and well Father Problem (finding) Father Problem (finding) of old age 84 Brother Problem (finding) Coronary artery disease 55 Brother Problem (finding) Alive and well Payers Payer name Insurance type Covered constitution party ID Authoriza tion(s) No Information Social History [...] UmairJonathan [address] [place], [place], [address] Ordered: Referrals: Jonathan Block. Evaluate and treat [...]
--- OUTSIDE RECORDS SUMMARY | 2025-05-04 05:59 | XMS_ITS | Clinical Summary ---
Author Organization [facility] Address [address] [place] [address] Care Team Providers Care Typesetting Machine Operator/Tender Name Role Phone None, Provider MD Primary [...] to complete this topic Insurance Care Teams Typesetting Machine Operator/Tender Relationship Specialty Start Date End Date None, Provider, PCP - General UNKNOWN PHYSICIAN SPECIALTY 06/30/23
--- OUTSIDE RECORDS SUMMARY | 2025-05-04 05:59 | XMS_ITS | Referral Summary ---
Author Organization [facility] [address] Address [address] [place] [address] 5th [place] [address] Care Team Providers Care Humid System Operator Name Role Phone Todd Mata MD Primary [...] on file Legal Sex Male 12:11 PM BILINGUAL HR GENERALIST Gender Identity Not on file Sexual Orientation Not on file Last Filed Vital Signs Vital Sign Reading Time Taken Comments Blood Pressure 124/76 09/01/2024 3:48 PM BILINGUAL HR GENERALIST Pulse 80 09/01/2024 3:48 PM BILINGUAL HR GENERALIST Temperature 36.6 C (97.8 F) 09/01/2024 3:48 PM BILINGUAL HR GENERALIST Respiratory Rate - - Oxygen Saturation 96% 09/01/2024 3:48 PM BILINGUAL HR GENERALIST Inhaled Oxygen Concentration - - Weight 92.1 kg (203 lb) 09/01/2024 3:48 PM BILINGUAL HR GENERALIST Height 175.3 cm (5' 9) 09/01/2024 3:48 PM BILINGUAL HR GENERALIST Body Mass Index 29.98 09/01/2024 3:48 PM BILINGUAL HR GENERALIST Plan of Treatment Not on file Insurance [facility] ACC[facility] Care Teams Humid System Operator Relationship Specialty Start Date End Date Todd Mata MD [address] [facility] [address] [place] [address] PCP - General Family Practice 09/01/24
--- OUTSIDE RECORDS SUMMARY | 2025-05-04 05:59 | XMS_ITS | Clinical Summary ---
Author Organization [facility] [address] Address [address] [place] [address] 5th [place] [address] Care Team Providers Care Biological Chemist Name Role Phone Todd Mata MD Primary [...] on file Legal Sex Male 12:11 PM DIRECTOR BLOOD BANK Gender Identity Not on file Sexual Orientation Not on file Obstetrics History Last Filed Vital Signs Vital Sign Reading Time Taken Comments Blood Pressure 124/76 09/01/2024 3:48 PM DIRECTOR BLOOD BANK Pulse 80 09/01/2024 3:48 PM DIRECTOR BLOOD BANK Temperature 36.6 C (97.8 F) 09/01/2024 3:48 PM DIRECTOR BLOOD BANK Respiratory Rate - - Oxygen Saturation 96% 09/01/2024 3:48 PM DIRECTOR BLOOD BANK Inhaled Oxygen Concentration - - Weight 92.1 kg (203 lb) 09/01/2024 3:48 PM DIRECTOR BLOOD BANK Height 175.3 cm (5' 9) 09/01/2024 3:48 PM DIRECTOR BLOOD BANK Body Mass Index 29.98 09/01/2024 3:48 PM DIRECTOR BLOOD BANK Plan of Treatment Health Maintenance Due Date [...] patient's age to complete this topic Insurance [facility] [employer] Care Teams Biological Chemist Relationship Specialty Start Date End Date Todd Mata MD [address] [facility] [address] [place] [address] PCP - General Family Practice 09/01/24
--- OUTSIDE RECORDS SUMMARY | 2025-05-04 05:59 | XMS_ITS | Continuity of Care Document ---
Author Organization [facility] Address [address] [place] [address] [address] [place] [address] Phone Care Team Providers Care Manager Loss Prevention Name Role Phone Dubon OD, Crescencio Unavailable Unavailable Procedures Procedure Date Office/outpatient Visit, Est Eye Exam Established Pt Advance Directives Directive Yes / No Effective Date File Name No Information Encounters Encounter Description Practice Location Reason(s) For Visit Diagnoses Date Provider Providers Copied on Encounter Office/outpat ient Visit, Est [facility], [address] [place] [address] [address], [place], [place], [id number], [place] tel:[phone] [facility] [place] No Information 8-201 0 Dubon OD Crescencio. [address] [facility] [address] , [address], [place], [address], [place]. tel:[phone] [facility], [address] [place] [address] [address], [place], [place], [id number], [place] tel:[phone] [facility] [place] No Information 1-201 0 Dubon OD Crescencio. [address] [facility] [address] , [address], [place], [address], [place]. tel:[phone] Family History Family Member Type Diagnosis Age At Onset No Information Payers Payer name Insurance type Covered alliance party ID Authoriza tion(s) Medicaid [facility] [id number] Social History Type Description Quantity Date Captured [...]
--- NOTE | 2025-05-04 06:04 | ED_ITS ---
HPI - General Adult General Chief complaint: Anxiety Stated complaint: ANXIETY Time Seen by Provider: 05/04/25 05:53 History of Present Illness HPI narrative: Ketan is a 60M with a PMH of GERD, hepatic steatosis, ureter stone, diverticulosis, degenerative disc disease and anxiety that presented to the ED with anxiety. He first came to the ED a week ago with shoulder pain and anxiety. He was diagnosed with a shoulder strain, anxiety and had a negative cardiac workup. He had a resumption of symptoms and went to [place] yesterday and had a negative cardiac labs but left before seeing the provider. He did see his primary before this and was given hydrocodone, diclofenac, and tizanidine. He has done fine with hydrocodone in the past and does fine with other NSAIDs so it was likely the tizanidine that gave him anxiety. He did well with Norflex while in the ED before. He has pressured speech and is a difficult historian, but when specifically asked if he is here for shoulder pain or anxiety he says he is here for the pain as he took a buspar and his anxiety is improving. No new trauma or falls reported. Related Data Home Medications ?Medication ?Instructions ?Recorded ?Confirmed ?Last Taken ?Type aripiprazole 15 mg tablet mg 10/25/24 Unknown History buspirone 15 mg tablet mg 10/25/24 Unknown History doxepin 10 mg capsule mg 10/25/24 Unknown History hydroxyzine pamoate 25 mg capsule mg 10/25/24 Unknown History lamotrigine 100 mg tablet mg 10/25/24 Unknown History Allergies Allergy/AdvReac Type Severity Reaction Status Date / Time No Known Allergies Allergy Verified 05/04/25 05:54 Review of Systems Review of Systems: All systems reviewed & are unremarkable except as noted in HPI and below [facility] Past Medical History Medical History Diverticulitis large intestine w/o perforation or abscess w/o bleeding Diverticulosis Left ureteral stone Arthritis Right kidney mass Left renal stone Hepatic steatosis Umbilical hernia without obstruction and without gangrene GERD (gastroesophageal reflux disease) Depression Anxiety Hyperlipidemia Surgical History Surgical History History of orthopedic surgery to remove pin out of left 1st digit History of eye surgery to remove metal in eye H/O umbilical hernia repair Family History Family History Mother Patient's mother is Father Patient's father is Sibling Patient's sister is in good health Patient's brother is in good health Family history of coronary artery disease Breast cancer Stomach cancer Social History Social History Smoking status: Never smoker Alcohol intake: current Substance use: current Substance use type: marijuana Other substance usage details: occasional Last use: 2 weeks ago Occupation/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oncerns: Yes (Cheondoism) Agree to blood products: Yes Exam Const: General: cooperative, healthy appearing, comfortable, no acute distress, well developed, alert, awake and Physically active Orientation/consciousness: oriented to person, oriented to place and oriented to time HENMT: Head: normal to inspection, normocephalic and atraumatic Ears: hearing grossly normal bilaterally and external ears normal Face/Nose/Sinus: Normal external nose present Eyes: General: appearance normal, both eyes and all related structures Periorbital: periorbital findings normal Sclera: sclerae normal Pupils: Equal, round and reactive pupils present Neck: Neck: normal visual inspection Chest: Chest palpation & inspection: normal inspection of the chest Resp: Effort & Inspection: normal respiratory effort, able to speak in complete sentences and no respiratory distress Cardio: Jugular venous distension: no JVD Skin: General skin exam: normal color and no rashes or lesions noted Neuro: General: oriented to person, oriented to place and oriented to time Cranial nerves: Yes Equal, round and reactive pupils present Extrem: General: normal to inspection Other: Full active ROM of the both shoulders Course Course Emergency Course: Given Norflex as he has done well on this before and Toradol as he has done well on NSAIDs other than potentially diclofenac, but it was likely the tizanidine that caused adverse effects, not NSAIDs. After 15 minute he had improvement in shoulder pain. Discharge Plan Discharge Clinical Impression: Acute pain of right shoulder Patient Disposition: Home Condition: Stable Patient Language: Vietnamese Prescriptions: New orphenadrine citrate 100 mg tablet extended release 100 mg PO Q12H Qty: 10 0RF No Action doxepin 10 mg capsule lamotrigine 100 mg tablet buspirone 15 mg tablet hydroxyzine pamoate 25 mg capsule aripiprazole 15 mg tablet buspirone 15 mg tablet 15 mg PO BID Qty: 60 0RF lamotrigine 100 mg tablet 100 mg PO BID Qty: 60 0RF doxepin 10 mg capsule 10 mg PO HS PRN (Reason: insomnia) Qty: 30 0RF hydroxyzine pamoate 25 mg capsule 25 mg PO TID PRN (Reason: itching) Qty: 60 0RF aripiprazole 15 mg tablet 15 mg PO HS Qty: 30 0RF prednisone 20 mg tablet 40 mg PO DAILY 3 Days Qty: 6 0RF orphenadrine citrate 100 mg tablet extended release 100 mg PO BID PRN (Reason: pain) Qty: 20 0RF Follow-up/Referrals: Pradeep,Angeles Abdul MD [Primary Care Provider] -
[2025-05-04] MEDS: KETOROLAC 30 MG/ML VIAL (*BKC) IM (06:16)
[2025-05-04] MEDS: ORPHENADRINE CITRATE 100 MG TABLET.ER PO (06:16)
[2025-05-04 06:51] VITALS: BP 135/103; PULSE 65; RESP 16; O2SAT 97
== END 2025-05-04 06:56 | disposition home or self-care (01) ==
PROVIDERS: Emergency Provider Family Medicine; PCP Family Medicine
DX: M25.511 Pain in right shoulder (principal); F41.9 Anxiety disorder, unspecified; F12.90 Cannabis use, unspecified, uncomplicated
CPT/HCPCS: 96372; 99283; A9270; J1885

== ENCOUNTER 2025-08-03 14:34 | Emergency (ER) | payer BC, OTHER, SELFPAY ==
--- NOTE | ~2025-08-03 | CT_ITS ---
EXAMINATION: CT lumbar spine wo con COMPARISON: None HISTORY: low back pain TECHNIQUE: Axial images were obtained through the spine without IV contrast. Coronal, sagittal reconstruction images were obtained from the axial views. CT scan performed using dose optimization techniques including the following automated exposure control; adjustment of mA and/or kV; use of iterative reconstruction technique. Automatic exposure control was used to reduce radiation dose. Permanent radiation dose record is archived to PACS. FINDINGS: The vertebral heights are intact. No fracture or subluxation. Severe loss of disc height at L5-S1 with moderate loss of disc height at L1-2 and L2-3 with moderate to severe canal and foraminal stenosis at L5-S1, outpatient MRI is recommended Soft tissues unremarkable. Impression: No acute abnormality. Reviewed, dictated and finalized at location P. Impression: No acute abnormality.
[2025-08-03 14:34] VITALS: BP 141/90; PULSE 71; RESP 16; TEMP 36.3; O2SAT 100
--- NOTE | 2025-08-03 16:52 | ED_ITS ---
HPI - Back Pain/Injury General Chief Complaint: Back Pain/Injury Stated Complaint: back injury Time Seen by Provider: 08/03/25 16:37 Source: patient Mode of arrival: ambulatory Limitations: no limitations History of Present Illness HPI Narrative: This is a 60 year old male that presents to the ER for low back pain. Reports he bent down to pick something up that weight about 5 lbs. Wilcox like something popped. Denies numbness, weakness. Related Data Home Medications ?Medication ?Instructions ?Recorded ?Confirmed ?Last Taken ?Type aripiprazole 15 mg tablet mg 10/25/24 Unknown History buspirone 15 mg tablet mg 10/25/24 Unknown History doxepin 10 mg capsule mg 10/25/24 Unknown History hydroxyzine pamoate 25 mg capsule mg 10/25/24 Unknown History lamotrigine 100 mg tablet mg 10/25/24 Unknown History Allergies Allergy/AdvReac Type Severity Reaction Status Date / Time acetaminophen (From Tylenol) AdvReac Mild Unconscious Verified 08/03/25 17:03 Review of Systems Review of Systems: All systems reviewed & are unremarkable except as noted in HPI and below PMFSH Past Medical History Medical History Diverticulitis large intestine w/o perforation or abscess w/o bleeding Diverticulosis Left ureteral stone Arthritis Right kidney mass Left renal stone Hepatic steatosis Umbilical hernia without obstruction and without gangrene GERD (gastroesophageal reflux disease) Depression Anxiety Hyperlipidemia Surgical History Surgical History History of orthopedic surgery to remove pin out of left 1st digit History of eye surgery to remove metal in eye H/O umbilical hernia repair Family History Family History Mother Patient's mother is Father Patient's father is Sibling Patient's sister is in good health Patient's brother is in good health Family history of coronary artery disease Breast cancer Stomach cancer Social History Social History Smoking status: Never smoker Alcohol intake: current Substance use: current Substance use type: marijuana Other substance usage details: occasional Last use: 2 weeks ago Occupation/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 HEAD: Normocephalic, atraumatic. EYES: EOMI. CHEST: Clear to auscultation. No respiratory distress. No wheezes rales or rhonchi HEART: Regular rate and rhythm. No murmur heard. Normal peripheral pulses. BACK: Tender to palpation of lower lumber spine and paraspinal musculature EXTREMITIES: Normal range of motion. No edema. Strength equal in bilateral lower extremities (5/5) SKIN: Warm, dry, no rash. NEURO: No focal deficits. Alert and oriented x3. PSYCH: Normal mood and affect Course Vital Signs Vital signs: Vital Signs Temperature 97.3 F L 08/03/25 14:34 Pulse Rate 71 08/03/25 14:34 Respiratory Rate 16 08/03/25 14:34 Blood Pressure 141/90 H 08/03/25 14:34 Pulse Oximetry 100 08/03/25 14:34 Temperature 97.3 F L 08/03/25 14:34 Pulse Rate 71 08/03/25 14:34 Respiratory Rate 16 08/03/25 14:34 Blood Pressure 141/90 H 08/03/25 14:34 Pulse Oximetry 100 08/03/25 14:34 MDM - Back Pain/Injury MDM Narrative Medical decision making narrative: This is a 60 year old male that presents to the ER for low back pain. Reports bending over and feeling a pop in his low back. CT lumbar spine without acute findings. He was updated on his workup. He is to follow up with PCP. He was given warnings to return to the ER Differential Diagnosis Differential diagnosis: Likely lumbar radiculopathy, strain of lumbar region and other (degenerative disc disease) Imaging Data Radiologist's impression: ITS Impressions Lumbar Spine CT 08/03/25 18:02 Impression: No acute abnormality. Critical Care Time Critical Care Time Critical Care Time: No Discharge Plan Discharge Clinical Impression: Low back pain Qualifiers: Chronicity: acute Back pain laterality: midline Sciatica presence: without sciatica Qualified Code(s): M54.50 - Low back pain, unspecified Patient Disposition: Home Condition: Stable Instructions: Acute Low Back Pain (ED) Additional Instructions: Return to the ER if you experience weakness, numbness, bowel/bladder incontinence, or any other symptoms that are concerning to you Rest, use ice/heat, take anti-inflammatories (Aleve, Ibuprofen, Naproxen, etc) as needed for pain as well as muscle relaxer (Flexeril) as needed for pain. Muscle relaxers can make you drowsy, do not drive if you take this. Lidocaine patch to the area of pain as needed Follow up with your primary care doctor Patient Language: Hungarian Prescriptions: New lidocaine 5 % adhesive patch,medicated 1 patch topical DAILY Qty: 15 0RF Rx Instructions: leave on most painful area for up to 12 hrs cyclobenzaprine 10 mg tablet 10 mg PO TID PRN (Reason: muscle spasm) Qty: 14 0RF No Action doxepin 10 mg capsule lamotrigine 100 mg tablet buspirone 15 mg tablet hydroxyzine pamoate 25 mg capsule aripiprazole 15 mg tablet buspirone 15 mg tablet 15 mg PO BID Qty: 60 0RF lamotrigine 100 mg tablet 100 mg PO BID Qty: 60 0RF doxepin 10 mg capsule 10 mg PO HS PRN (Reason: insomnia) Qty: 30 0RF hydroxyzine pamoate 25 mg capsule 25 mg PO TID PRN (Reason: itching) Qty: 60 0RF aripiprazole 15 mg tablet 15 mg PO HS Qty: 30 0RF prednisone 20 mg tablet 40 mg PO DAILY 3 Days Qty: 6 0RF orphenadrine citrate 100 mg tablet extended release 100 mg PO BID PRN (Reason: pain) Qty: 20 0RF orphenadrine citrate 100 mg tablet extended release 100 mg PO Q12H Qty: 10 0RF Follow-up/Referrals: Pradeep,Angeles Abdul MD [Primary Care Provider, Unknown] Stand Alone Forms: Work/School Release IP
[2025-08-03] MEDS: KETOROLAC 30 MG/ML VIAL (*BKC) IM (17:19)
[2025-08-03 18:29] VITALS: BP 153/82; PULSE 86; RESP 14; O2SAT 97
--- OUTSIDE RECORDS SUMMARY | 2025-08-03 18:48 | XMS_ITS | Clinical Summary ---
Author Organization [facility] Address [address] [place] [address] Care Team Providers Care Residence Counselor Name Role Phone None, Provider MD Primary [...] of 2) 01/14/2014 COVID-19 Vaccine (3 - 2024-2 6 season) 2025 04/27/2021, 04/06/2021 Influenza Adult (#1) 2025 DTaP, Tdap and Td Vaccines ( 2 - Td or Tdap) 03/22/2031 03/22/2021 RSV Immunization or 60+ Years (1 - 1-dose 75+ series) 01/14/2039 Hepatitis A Vaccines Aged Out No long er eligible based on patient's age to complete this topic Meningococcal B Vaccine Aged Out No l onger eligible based on patient's age to complete this topic Meningococcal Vaccine Aged Out No mino allison eligible based on patient's age to complete this topic RSV Immunizations Under 20 Months Aged Out No longer eligible b ased on patient's age to complete this topic Insurance [employer] Care Teams Residence Counselor Relationship Specialty Start Date End Date None, Provider, MD PCP - General UNKNOWN PHYSICIAN SPECIALTY 06/30/23
--- OUTSIDE RECORDS SUMMARY | 2025-08-03 18:48 | XMS_ITS | Clinical Summary ---
Author Organization [facility] [address] Address [address] [place] [address] [address] [place] [address] Care Team Providers Care Event Set Up Specialist Name Role Phone Todd Mata MD Primary [...] on file Legal Sex Male 12:11 PM ADMINISTRATIVE REPRESENTATIVE Gender Identity Not on file Sexual Orientation Not on file Obstetrics History Last Filed Vital Signs Vital Sign Reading Time Taken Comments Blood Pressure 124/76 09/01/2024 3:48 PM ADMINISTRATIVE REPRESENTATIVE Pulse 80 09/01/2024 3:48 PM ADMINISTRATIVE REPRESENTATIVE Temperature 36.6 C (97.8 F) 09/01/2024 3:48 PM ADMINISTRATIVE REPRESENTATIVE Respiratory Rate - - Oxygen Saturation 96% 09/01/2024 3:48 PM ADMINISTRATIVE REPRESENTATIVE Inhaled Oxygen Concentration - - Weight 92.1 kg (203 lb) 09/01/2024 3:48 PM ADMINISTRATIVE REPRESENTATIVE Height 175.3 cm (5' 9) 09/01/2024 3:48 PM ADMINISTRATIVE REPRESENTATIVE Body Mass Index 29.98 09/01/2024 3:48 PM ADMINISTRATIVE REPRESENTATIVE Plan of Treatment Health Maintenance Due Date Last Done Comments Colon Cancer Screening-Colonoscopy 1965 Hepatitis C Screening 1965 Prostate Cancer Screening-PSA 1965 Hepatitis B Screening 01/14/1982 Zoster Vaccine (1 of 2) 01/14/2014 Covid-19 Vaccine (3 - 2024-2 6 season) 2025 04/27/2021, 04/06/2021 Influenza Vaccine (#1) 2025 Depression Screening 09/01/2025 09/01/2024 Regular Well Visit/Exam 18-64 09/01/2025 09/01/2024 DTaP/Tdap/Td Vaccine (2 - Td or Tdap) 03/22/2031 03/22/2021 Pneumococcal vaccine <65 Aged Out No longer eligible based on patient's age to complete this topic Insurance [facility] [employer] Care Teams Event Set Up Specialist Relationship Specialty Start Date End Date Todd Mata MD [address] [facility] [address] [place] [address] PCP - General Family Practice 09/01/24
--- OUTSIDE RECORDS SUMMARY | 2025-08-03 20:21 | XMS_ITS | Clinical Summary ---
Author Organization [facility] Address [address] [place] [address] Care Team Providers Care Global Vp Creative + Content Marketing Name Role Phone None, Provider MD Primary [...] this topic Insurance [employer] Care Teams Global Vp Creative + Content Marketing Relationship Specialty Start Date End Date None, Provider, MD PCP - General UNKNOWN PHYSICIAN SPECIALTY 06/30/23
--- OUTSIDE RECORDS SUMMARY | 2025-08-03 20:21 | XMS_ITS | Clinical Summary ---
Author Organization [facility] [address] [place] [address] [address] [place] [address] Care Team Providers Care Specimen Transporter Name Role Phone Todd Mata MD Primary [...] on file Legal Sex Male 12:11 PM REHABILITATION THERAPY AIDE Gender Identity Not on file Sexual Orientation Not on file Obstetrics History Last Filed Vital Signs Vital Sign Reading Time Taken Comments Blood Pressure 124/76 09/01/2024 3:48 PM REHABILITATION THERAPY AIDE Pulse 80 09/01/2024 3:48 PM REHABILITATION THERAPY AIDE Temperature 36.6 C (97.8 F) 09/01/2024 3:48 PM REHABILITATION THERAPY AIDE Respiratory Rate - - Oxygen Saturation 96% 09/01/2024 3:48 PM REHABILITATION THERAPY AIDE Inhaled Oxygen Concentration - - Weight 92.1 kg (203 lb) 09/01/2024 3:48 PM REHABILITATION THERAPY AIDE Height 175.3 cm (5' 9) 09/01/2024 3:48 PM REHABILITATION THERAPY AIDE Body Mass Index 29.98 09/01/2024 3:48 PM REHABILITATION THERAPY AIDE Plan of Treatment Health Maintenance Due Date [...] patient's age to complete this topic Insurance [facility] [employer] Member Subscriber Plan / Payer (Ef fective 2024-Present) Name:Ketan Pena Member ID:[id number] Relation to Subscriber:Self Name:Ketan Pena Subscriber ID:[id number] Payer ID:[id number] (NAIC) Type:[facility] Address: [facility] [address] [place] [address] Care Teams Specimen Transporter Relationship Specialty Start Date End Date Todd Mata MD [address] [facility] [facility] [address] [place] [address] PCP - General Family Practice 09/01/24
== END 2025-08-03 18:31 | disposition home or self-care (01) ==
PROVIDERS: Emergency Provider Physician Assistant; PCP Family Medicine
DX: M54.50 Low back pain, unspecified (principal); E78.5 Hyperlipidemia, unspecified; M19.90 Unspecified osteoarthritis, unspecified site; K21.9 Gastro-esophageal reflux disease without esophagitis; F41.9 Anxiety disorder, unspecified; F32.A Depression, unspecified; Z87.442 Personal history of urinary calculi; Z79.899 Other long term (current) drug therapy
CPT/HCPCS: 72131; 96372; 99284; J1885